=== PATIENT | female | born 1945 | race African-American/Black ===

== ENCOUNTER → 2016-07-01 | Outpatient (CLI) | payer OTHER ==
[~2016-07-01] MED LIST: ALLOPURINOL PO; ALLOPURINOL300 M1 ORAL; ASPIRIN81 MG ORAL; HYDROCHLOROTHIAZIDE PO; LOSARTAN PO; LOSARTAN POTASS50 MG ORAL; METFORMIN HCL500 M1 ORAL; TRAMADOL HCL PO
== END | disposition home or self-care (01) ==
LOC: MAMMO 09:10
DX: Z12.31 Encounter for screening mammogram for malignant neoplasm of breast (principal)
CPT/HCPCS: 77067

== ENCOUNTER 2017-03-12 16:49 | Inpatient (IN) | payer MEDICARE, OTHER ==
[~2017-03-12] VITALS: Ht 154.9 cm; Wt 81.6 kg
[2017-03-12 17:05] VITALS: BP 162/56
[2017-03-12] MEDS ORDERED: fentaNYL 100 mcg/2 mL IV ONE ×2 (17:30→21:15)
[2017-03-12 18:24] LABS: BASOPHILS % (AUTO) 0.6 % (0.0-2.0); EOSINOPHILS % (AUTO) 3.9 % (0.0-3.0); HEMATOCRIT 30.1 % (37.0-47.0); HEMOGLOBIN 9.7 G/DL (12.0-16.0); MEAN CORPUSCULAR VOLUME 83 FL (80-99); MONOCYTES % (AUTO) 6.7 % (1.0-10.0); NEUTROPHILS % (AUTO) 65.8 % (45.0-75.0); PLATELET COUNT 318 K/UL (150-450); RED BLOOD COUNT 3.64 M/UL (4.20-5.40); WHITE BLOOD COUNT 8.8 K/UL (4.8-10.8)
[2017-03-12 18:25] LABS: APPEARANCE,URINE CLEAR; BILIRUBIN, URINE NEGATIVE (NEGATIVE); COLOR,URINE PALE YELLOW; GLUCOSE, URINE (UA) NEGATIVE (NEGATIVE); KETONES,URINE NEGATIVE (NEGATIVE); LEUKOCYTE ESTERASE ,URINE 2+ (NEGATIVE); NITRITE,URINE NEGATIVE (NEGATIVE); PH,URINE 5 (4.5-8.0); PROTEIN,URINE 1+ (NEGATIVE); UROBILINOGEN,URINE NORMAL MG/DL (0.0-1.0)
[2017-03-12 18:35] LABS: ANION GAP 7 mmol/L (5-15); BLOOD UREA NITROGEN 24 mg/dL (7-18); CALCIUM 9.8 MG/DL (8.5-10.1); CARBON DIOXIDE 27 MMOL/L (21-32); CHLORIDE 105 MMOL/L (98-107); CREATININE 1.3 MG/DL (0.55-1.30); POTASSIUM 4.5 MMOL/L (3.5-5.1); SODIUM 139 MMOL/L (136-145)
[2017-03-12 18:46] LABS: ALANINE AMINOTRANSFERASE 24 U/L (12-78); ALBUMIN 3.3 G/DL (3.4-5.0); ALBUMIN/GLOBULIN RATIO 0.8 (1.0-2.7); ALKALINE PHOSPHATASE 73 U/L (46-116); ASPARTATE AMINO TRANSFERASE 22 U/L (15-37); BILIRUBIN,TOTAL 0.5 MG/DL (0.2-1.0); CREATINE KINASE 49 U/L (26-308)
[2017-03-12] MEDS ORDERED: Morphine Sulfate 4mg/ml Inj IVP PRN (19:30)
[2017-03-12] MEDS ORDERED: Mylanta II UD 30ml ORAL PRN (19:30)
[2017-03-12] MEDS ORDERED: Miralax 17gm pkt ORAL PRN (19:30)
[2017-03-12] MEDS ORDERED: Morphine Sulfate 2mg/ml Inj IVP PRN (19:30)
[2017-03-12] MEDS ORDERED: Zolpidem 5mg tab ORAL PRN (19:30)
[2017-03-12] MEDS ORDERED: LORazepam Inj 2mg/ml 1ml IV PRN (19:30)
[2017-03-12] MEDS ORDERED: SYMBICORT 16010.2 G1 IH (19:42)
[2017-03-12] MEDS ORDERED: JANUMET 50-1,01 EACH ORAL (19:42)
[2017-03-12] MEDS ORDERED: HYDROCHLOROTHIA25 MG ORAL (19:43)
[2017-03-12] MEDS: NovoLOG Insulin Flexpen SUBQ SCH (20:58)
[2017-03-12] MEDS ORDERED: Losartan 50mg tab ONE (21:11)
[2017-03-12] MEDS ORDERED: Allopurinol 100mg Tab ONE ×2 (21:11→21:15)
--- NOTE | 2017-03-12 21:18 | Emergency Room Report ---
History of Present Illness General Chief Complaint: Abdominal Pain Source: Patient Present Illness HPI Patient presents with 5-7 days of increasing leg edema and bilateral flank/ chest pain. She's had a non-productive cough. The bilateral flank pain has now localized on the R side - lower chest. Pleuritic and constant, aching and burning, /10. She tried meds at home without change. Denies fevers. No calf tenderness. The edema in her feet has progressed. On Feb 27 she had a second operation to remove a kidney stone. (The first was in January.) This was complicated by "giving me too much anesthesia". She was hospitalized at [facility] in ICU for at least 24 hours, intubated. She had a sore throat and pain with swallowing for several days after this. She just recently returned to work but feels weak and has CRUZ and dyspnea. She states when she presented for the surgery, there was some discussion about her slow heart rate. She considered gout, but not usual pain. She feels HCTZ had contributed to gout. No dysuria, headache. She is upset that she has had to miss work. Allergies: Coded Allergies: No Known Allergies (Unverified , 07/18/12) Patient History Past Medical History: see triage record Past Surgical History: hysterectomy, other - lithotripsy Social History: Reports: alcohol use - occ, Denies: smoking Social History Narrative working Last Menstrual Period: na Reviewed Nursing Documentation: PMH: Agreed, PSxH: Agreed Nursing Documentation-[facility] Past Medical History: No History, Except For Hx Cardiac Problems: Yes Hx Hypertension: Yes Hx Diabetes: Yes Hx Cancer: No Hx Gastrointestinal Problems: Yes - lithotripsy Hx Neurological Problems: No Review of Systems All Other Systems: negative except mentioned in HPI Physical Exam Vital Signs Date Time Temp Pulse Resp B/P (MAP) Pulse Ox O2 Delivery O2 Flow Rate FiO2 03/12/17 16:50 98.1 47 16 149/64 98 Room Air Sp02 EP Interpretation: reviewed, normal - O2 sat for me 94% on RA which is interpreted as low General Appearance: well appearing, no apparent distress, GCS 15 Head: normocephalic Eyes: bilateral eye normal inspection, bilateral eye PERRL ENT: moist mucus membranes Neck: supple Respiratory: decreased breath sounds, crackles, other - some R chest wall tenderness Cardiovascular #1: bradycardia, edema - bilaterrally Cardiovascular #2: 2+ radial (R) Gastrointestinal: normal inspection, normal bowel sounds, non tender, no mass, non-distended, overweight Genitourinary: CVA tenderness (R) Musculoskeletal: back normal, gait/station normal, normal range of motion, no calf tenderness Neurologic: alert, oriented x3, grossly normal Psychiatric: depressed affect Skin: normal inspection, warm/dry Medical Decision Making Diagnostic Impression: Primary Impression: Second degree heart block Additional Impressions: Congestive heart failure Qualified Codes: I50.41 - Acute combined systolic (congestive) and diastolic ( congestive) heart failure Pyuria Consideration of myxedema ER Course Patient presents with pleuritic chest pain, hypoxia, bradycardia, edema post operatively. DDx; PE, CHF, AMI, pleurisy, arrhythmia, hypothyroidism amongst others. Risk factors for PE significant. Will evaluate with EKG, CXR, CTA, labs. Treatment with analgesia. EKG with 2nd degree HB. Discussed with Dr. Argueta in detail. Consideration of atropine, but patient tolerating rhythm. Discussed with Dr. Ji. Plan to place pacer tomorrow. CXR with CHF and cardiomegaly. Labs with normal troponin, normal WBC, eosinophilia, anemia. Min renal insufficiency. BNP normal. CTA with no PE. Lasix given. Consideration of CHF with normal BNP for possible thyroid etiology. (On floor TSH ordered). Admit DAPHNE, Dr. Reddy. Laboratory Tests Test 03/12/17 17:35 White Blood Count 8.8 K/UL (4.8-10.8) Red Blood Count 3.64 M/UL (4.20-5.40) L Hemoglobin 9.7 G/DL (12.0-16.0) L Hematocrit 30.1 % (37.0-47.0) L Mean Corpuscular Volume 83 FL (80-99) Mean Corpuscular Hemoglobin 26.6 PG (27.0-31.0) L Mean Corpuscular Hemoglobin Concent 32.1 G/DL (32.0-36.0) Red Cell Distribution Width 13.0 % (11.6-14.8) Platelet Count 318 K/UL (150-450) Mean Platelet Volume 6.1 FL (6.5-10.1) L Neutrophils (%) (Auto) 65.8 % (45.0-75.0) Lymphocytes (%) (Auto) 23.0 % (20.0-45.0) Monocytes (%) (Auto) 6.7 % (1.0-10.0) Eosinophils (%) (Auto) 3.9 % (0.0-3.0) H Basophils (%) (Auto) 0.6 % (0.0-2.0) Prothrombin Time 10.5 SEC (9.30-11.50) Prothrombin Time INR 1.0 (0.9-1.1) PTT 29 SEC (23-33) Urine Color Pale yellow Urine Appearance Clear Urine pH 5 (4.5-8.0) Urine Specific [place] 1.010 (1.005-1.035) Urine Protein 1+ (NEGATIVE) H Urine Glucose (UA) Negative (NEGATIVE) Urine Ketones Negative (NEGATIVE) Urine Occult Blood 1+ (NEGATIVE) H Urine Nitrite Negative (NEGATIVE) Urine Bilirubin Negative (NEGATIVE) Urine Urobilinogen Normal MG/DL (0.0-1.0) Urine Leukocyte Esterase 2+ (NEGATIVE) H Urine RBC 2-4 /HPF (0 - 2) H Urine WBC 5-10 /HPF (0 - 2) H Urine Squamous Epithelial Cells Few /LPF (NONE/OCC) Urine Bacteria Few /HPF (NONE) Sodium Level 139 MMOL/L (136-145) Potassium Level 4.5 MMOL/L (3.5-5.1) Chloride Level 105 MMOL/L (98-107) Carbon Dioxide Level 27 MMOL/L (21-32) Anion Gap 7 mmol/L (5-15) Blood Urea Nitrogen 24 mg/dL (7-18) H Creatinine 1.3 MG/DL (0.55-1.30) Estimate Glomerular Filtration Rate mL/min (>60) Glucose Level 95 MG/DL (74-106) Calcium Level 9.8 MG/DL (8.5-10.1) Total Bilirubin 0.5 MG/DL (0.2-1.0) Aspartate Amino Transferase (AST) 22 U/L (15-37) Alanine Aminotransferase (ALT) 24 U/L (12-78) Alkaline Phosphatase 73 U/L (46-116) Total Creatine Kinase 49 U/L (26-308) Troponin I 0.000 ng/mL (0.000-0.056) Pro-B-Type Natriuretic Peptide 86 pg/mL (0-125) Total Protein 7.7 G/DL (6.4-8.2) Albumin 3.3 G/DL (3.4-5.0) L Globulin 4.4 g/dL Albumin/Globulin Ratio 0.8 (1.0-2.7) L EKG Diagnostic Results Rate: bradycardiac Rhythm: other - 2nd degree HB ST Segments: no acute changes Rhythm Strip Diag. Results EP Interpretation: yes Rhythm: no PVC's, no ectopy, other - 2nd degree - Mobitz 2 HB Chest X-Ray Diagnostic Results Chest X-Ray Diagnostic Results : Chest X-Ray Ordered: Yes # of Views/Limited/Complete: 1 View Indication: Chest Pain EP Interpretation: Yes Interpretation: no pneumothorax, other - cardiomegally, CHF CT/MRI/US Diagnostic Results CT/MRI/US Diagnostic Results : Imaging Test Ordered: CTA chest/abd Impression no PE, R renal subcapsular hematoma, cardiomegaly, atelectasis Last Vital Signs Date Time Temp Pulse Resp B/P (MAP) Pulse Ox O2 Delivery O2 Flow Rate FiO2 03/12/17 17:05 98.1 46 21 162/56 99 Room Air Status: improved Disposition: ADMITTED INPATIENT Condition: Serious Referrals: Alonso Reddy MD (PCP) Jasvir Baker M.D. Mar 12, 2017 21:18
[2017-03-12] MEDS: Heparin 5000 units/ml inj SUBQ SCH (21:26)
[2017-03-13] VITALS: BP 148/63
[2017-03-13 04:30] VITALS: BP 138/63
[2017-03-13] MEDS ORDERED: cefTRIAXone 1 GM in D5W 55 ML IVPB ONE (05:45)
[2017-03-13 06:07] LABS: BASOPHILS % (AUTO) 0.8 % (0.0-2.0); EOSINOPHILS % (AUTO) 4.5 % (0.0-3.0); HEMATOCRIT 29.7 % (37.0-47.0); HEMOGLOBIN 9.7 G/DL (12.0-16.0); LYMPHOCYTES % (AUTO) 25.4 % (20.0-45.0); MEAN CORPUSCULAR VOLUME 83 FL (80-99); NEUTROPHILS % (AUTO) 60.3 % (45.0-75.0); PLATELET COUNT 317 K/UL (150-450); RED BLOOD COUNT 3.58 M/UL (4.20-5.40); RED CELL DISTRIBUTION WIDTH 12.8 % (11.6-14.8); WHITE BLOOD COUNT 6.8 K/UL (4.8-10.8)
[2017-03-13] MEDS: NovoLOG Insulin Flexpen SUBQ SCH ×4 (06:30→21:00)
[2017-03-13 06:35] LABS: ALANINE AMINOTRANSFERASE 20 U/L (12-78); ALBUMIN/GLOBULIN RATIO 0.7 (1.0-2.7); ALKALINE PHOSPHATASE 70 U/L (46-116); ANION GAP 6 mmol/L (5-15); ASPARTATE AMINO TRANSFERASE 19 U/L (15-37); BILIRUBIN,TOTAL 0.4 MG/DL (0.2-1.0); BLOOD UREA NITROGEN 23 mg/dL (7-18); CALCIUM 9.6 MG/DL (8.5-10.1); CARBON DIOXIDE 32 MMOL/L (21-32); CHLORIDE 105 MMOL/L (98-107); CREATININE 1.4 MG/DL (0.55-1.30); SODIUM 143 MMOL/L (136-145)
--- NOTE | 2017-03-13 06:57 | Consultation ---
Consult Note Consult Note Cardiac EP # [id number] full note dictated TERRY BLUE Mar 13, 2017 06:57
[2017-03-13] MEDS ORDERED: ceFAZolin sod 1 GM in D5W 55 ML IV ONE (07:30)
[2017-03-13] MEDS: Sodium Chloride 500ML 550 ML IV SCH ×3 (07:45→22:01)
[2017-03-13 08:00] VITALS: BP 126/64
[2017-03-13] MEDS ORDERED: ceFAZolin sod 1 GM in NS 55 ML IV ONE (08:00)
--- NOTE | 2017-03-13 08:22 | Diagnostic Imaging Report ---
Indication: Chest pain Technique: CT pulmonary angiogram performed utilizing automated exposure control with intravenous contrast. Axial, sagittal and coronal reconstructions were obtained. 3-D volumetric reconstructions were also performed. CT dose: Total DLP 846.06 mGycm; CTDI vol 26.19 mGy Comparison: None Findings: There is adequate opacification of the pulmonary arteries. No pulmonary embolism identified. Main pulmonary artery within the upper limits for normal size. Thoracic aorta normal in caliber with atherosclerotic calcification. There is common origin of the brachiocephalic and left common carotid arteries, normal anatomic variant. No evidence to suggest aortic dissection. There is dependent atelectasis in the lung bases. There is no pleural effusion or pneumothorax. Heart is enlarged. There is no pericardial effusion. Coronary arterial calcifications are noted. There is no pathologically enlarged hilar or mediastinal adenopathy. Imaged thyroid is unremarkable. Right renal subcapsular hematoma is partially imaged. There is a small hiatal hernia. There is a 8 mm rounded structure in the caudate lobe which likely represents an area of calcification. IMPRESSION: No evidence of pulmonary embolism. No thoracic aortic aneurysm. Right renal subcapsular hematoma, partially imaged. Cardiomegaly and coronary arterial calcification. Small hiatal hernia. 8 mm high attenuation rounded structure in the caudate lobe of the liver likely representing calcification. Recommend noncontrast CT of the abdomen for confirmation. This corresponds with the statrad preliminary report, with minor discrepancy regarding finding in the liver. Findings of final report discussed with treating RN 03/13/17. The CT scanner at [facility] is accredited by the [employer] and the scans are performed using protocols designed to limit radiation exposure to as low as reasonably achievable to attain images of sufficient resolution adequate for diagnostic evaluation.
[2017-03-13] MEDS: Losartan 50mg tab ORAL SCH (09:00)
[2017-03-13] MEDS: Heparin 5000 units/ml inj SUBQ SCH ×2 (09:20→21:00)
--- NOTE | 2017-03-13 09:28 | Diagnostic Imaging Report ---
Indication: Pain Technique: XRAY Chest 1v Comparison: None Findings: Low lung volumes exaggerate heart size and vascular markings. Despite technique there is likely cardiomegaly. No definite focal airspace consolidation. No large pleural effusion. No pneumothorax. There are degenerative changes of the spine. No acute osseous abnormality seen. Impression: Limited exam with low lung volumes. Cardiomegaly. Question mild interstitial opacification/edema however this may be exaggerated due to low lung volumes.
--- NOTE | 2017-03-13 09:30 | Diagnostic Imaging Report ---
Indication: Dyspnea Technique: XRAY Chest 1v Comparison: 03/12/2017 Findings: Improved inspiratory effort. Heart size and mediastinal contours are stable, including cardiomegaly. There is mild central pulmonary vascular congestion. No evidence of alveolar edema. There is linear opacity in the left mid lung thought to represent subsegmental atelectasis. Otherwise, no focal airspace consolidation. No pleural effusion. No pneumothorax. No acute osseous abnormality. Impression: Cardiomegaly with mild central pulmonary vascular congestion. Linear opacity in the left midlung likely related to subsegmental atelectasis.
--- NOTE | 2017-03-13 12:16 | Anethesia Preoperative Eval ---
Anesthesia Pre-op PMH/ROS General Date of Evaluation: Mar 13, 2017 Time of Evaluation: 12:09 Anesthesiologist: Tito ASA Score: ASA 3 Mallampati Score Class I : Soft palate, uvula, fauces, pillars visible Class II: Soft palate, uvula, fauces visible Class III: Soft palate, base of uvula visible Class IV: Only hard plate visible Mallampati Classification: Class II Surgeon: Margy Diagnosis: Symptomatic bradycardia Surgical Procedure: Pacemaker placement Anesthesia History: difficult airway, other - slow to wake up post anesthesia Family History: no anesthesia problems Allergies: Coded Allergies: No Known Allergies (Unverified , 07/18/12) Medications: see eMAR Past Medical History Cardiovascular: Reports: HTN, CAD, arrhythmia - Type2 second degree heart block , other - CHF Pulmonary: Denies: asthma, COPD, MICHELLE, other Gastrointestinal/Genitourinary: Reports: GERD, CRI, other - bilateral kidney stones h/o recent lithotrypsy, Denies: ESRD Neurologic/Psychiatric: Reports: depression/anxiety, Denies: dementia, CVA, TIA, other Endocrine: Denies: DM, hypothyroidism, steroids, other HEENT: Denies: cataract (L), cataract (R), glaucoma, [place] (L), [place] (R), other Hematology/Immune: Reports: anemia - mild, Denies: DVT, bleeding disorder, other Musculoskeletal/Integumentary: Reports: OA, Denies: RA, DJD, DDD, edema, other Other: obesity PMH Narrative: admitted for weakness SOB and some chest pains PSxH Narrative: Hysterectomy, kidney stones Anesthesia Pre-op Phys. Exam Physician Exam Last Vital Signs Date Time Temp Pulse Resp B/P (MAP) Pulse Ox O2 Delivery O2 Flow Rate FiO2 03/13/17 09:00 126/64 03/13/17 08:00 42 03/13/17 08:00 97.9 20 96 Room Air Constitutional: NAD Neurologic: CN 2-12 intact Cardiovascular: RRR, no M/R/G Respiratory: CTA Gastrointestinal: other - obesity Airway Exam Mallampati Score: Class III MO: limited Neck: short ROM: limited Teeth: missing Dentures: no upper, no lower Anesthesia Pre-op A/P Labs Hematology Test 03/12/17 17:35 03/13/17 04:40 White Blood Count 8.8 K/UL (4.8-10.8) 6.8 K/UL (4.8-10.8) Red Blood Count 3.64 M/UL (4.20-5.40) L 3.58 M/UL (4.20-5.40) L Hemoglobin 9.7 G/DL (12.0-16.0) L 9.7 G/DL (12.0-16.0) L Hematocrit 30.1 % (37.0-47.0) L 29.7 % (37.0-47.0) L Mean Corpuscular Volume 83 FL (80-99) 83 FL (80-99) Mean Corpuscular Hemoglobin 26.6 PG (27.0-31.0) L 27.1 PG (27.0-31.0) Mean Corpuscular Hemoglobin Concent 32.1 G/DL (32.0-36.0) 32.7 G/DL (32.0-36.0) Red Cell Distribution Width 13.0 % (11.6-14.8) 12.8 % (11.6-14.8) Platelet Count 318 K/UL (150-450) 317 K/UL (150-450) Mean Platelet Volume 6.1 FL (6.5-10.1) L 6.5 FL (6.5-10.1) Neutrophils (%) (Auto) 65.8 % (45.0-75.0) 60.3 % (45.0-75.0) Lymphocytes (%) (Auto) 23.0 % (20.0-45.0) 25.4 % (20.0-45.0) Monocytes (%) (Auto) 6.7 % (1.0-10.0) 9.0 % (1.0-10.0) Eosinophils (%) (Auto) 3.9 % (0.0-3.0) H 4.5 % (0.0-3.0) H Basophils (%) (Auto) 0.6 % (0.0-2.0) 0.8 % (0.0-2.0) Coagulation Test 03/12/17 17:35 Prothrombin Time 10.5 SEC (9.30-11.50) Prothromb Time International Ratio 1.0 (0.9-1.1) Activated Partial Thromboplast Time 29 SEC (23-33) Chemistry Test 03/12/17 17:35 03/13/17 04:40 Sodium Level 139 MMOL/L (136-145) 143 MMOL/L (136-145) Potassium Level 4.5 MMOL/L (3.5-5.1) 4.0 MMOL/L (3.5-5.1) Chloride Level 105 MMOL/L (98-107) 105 MMOL/L (98-107) Carbon Dioxide Level 27 MMOL/L (21-32) 32 MMOL/L (21-32) Anion Gap 7 mmol/L (5-15) 6 mmol/L (5-15) Blood Urea Nitrogen 24 mg/dL (7-18) H 23 mg/dL (7-18) H Creatinine 1.3 MG/DL (0.55-1.30) 1.4 MG/DL (0.55-1.30) H Estimat Glomerular Filtration Rate mL/min (>60) mL/min (>60) Glucose Level 95 MG/DL (74-106) 115 MG/DL (74-106) H Calcium Level 9.8 MG/DL (8.5-10.1) 9.6 MG/DL (8.5-10.1) Total Bilirubin 0.5 MG/DL (0.2-1.0) 0.4 MG/DL (0.2-1.0) Aspartate Amino Transf (AST/SGOT) 22 U/L (15-37) 19 U/L (15-37) Alanine Aminotransferase (ALT/SGPT) 24 U/L (12-78) 20 U/L (12-78) Alkaline Phosphatase 73 U/L (46-116) 70 U/L (46-116) Total Creatine Kinase 49 U/L (26-308) Troponin I 0.000 ng/mL (0.000-0.056) Pro-B-Type Natriuretic Peptide 86 pg/mL (0-125) Total Protein 7.7 G/DL (6.4-8.2) 7.4 G/DL (6.4-8.2) Albumin 3.3 G/DL (3.4-5.0) L 3.0 G/DL (3.4-5.0) L Globulin 4.4 g/dL 4.4 g/dL Albumin/Globulin Ratio 0.8 (1.0-2.7) L 0.7 (1.0-2.7) L Thyroid Stimulating Hormone (TSH) 1.827 uiU/mL (0.358-3.740) Risk Assessment & Plan Assessment: ASA 3 Plan: MAC Pre-Antibiotics Drug: as scheduled JOSE ROBLES M.D. Mar 13, 2017 12:15
--- NOTE | 2017-03-13 12:27 | Consultation ---
History of Present Illness General Date patient seen: Mar 13, 2017 Chief Complaint: Abdominal Pain Present Illness HPI 72 year old female with hx of DM, HTN, presented with 5-7 days of increasing leg edema and bilateral flank/chest pain. She had Pleuritic and constant, aching and burning, 08/19. she has CRUZ and dyspnea. she had symptomatic bradycardi in ER. She had CT agnio to rule out aortic aneurysm. Cardio was contacted Allergies: Coded Allergies: No Known Allergies (Unverified , 07/18/12) Medication History Scheduled Allopurinol* (Allopurinol*), 300 MG ORAL DAILY, (Reported) Budesonide/Formoterol Fumarate (Symbicort 160-4.5 Mcg Inhaler), 2 PUFF IH BID, ( Reported) Hydrochlorothiazide* (Hydrochlorothiazide*), 25 MG ORAL DAILY, (Reported) Losartan Potassium* (Losartan Potassium*), 50 MG ORAL DAILY, (Reported) Sitagliptin Phos/Metformin Hcl (Janumet 50-1,000 Mg Tablet), 1 TAB ORAL TWICE A DAY, (Reported) Discontinued Medications Aspirin* (Aspirin*), 81 MG ORAL DAILY, (Reported) Discontinued Reason: Pt stopped taking med Metformin Hcl* (Metformin Hcl*), 500 MG ORAL TWICE A DAY, (Reported) Discontinued Reason: Pt stopped taking med Patient History Healthcare decision maker Resuscitation status Full Code Advanced Directive on File No Past Medical/Surgical History Past Medical/Surgical History: (1) Congestive heart failure Review of Systems Constitutional: Reports: weakness Physical Exam General Appearance: WD/WN Lines, tubes and drains: peripheral HEENT: normocephalic, atraumatic Neck: non-tender, normal alignment Respiratory/Chest: chest wall non-tender, lungs clear Cardiovascular/Chest: normal peripheral pulses, normal rate Abdomen: normal bowel sounds, soft Genitourinary/Rectal: normal genital exam Last 24 Hour Vital Signs Date Time Temp Pulse Resp B/P (MAP) Pulse Ox O2 Delivery O2 Flow Rate FiO2 03/13/17 09:00 126/64 03/13/17 08:00 42 03/13/17 08:00 97.9 41 20 126/64 96 Room Air 03/13/17 05:06 98.0 03/13/17 04:30 98.6 44 19 138/63 95 Room Air 03/13/17 04:00 44 03/13/17 00:00 46 03/13/17 00:00 98.0 44 20 148/63 95 Room Air 03/12/17 23:18 98.1 46 21 138/50 99 Room Air 03/12/17 17:05 98.1 46 21 162/56 99 Room Air 03/12/17 16:50 98.1 47 16 149/64 98 Room Air Intake and Output 03/12/17 03/13/17 19:00 07:00 Intake Total 300 ml Output Total 2000 ml Balance -1700 ml Intake Oral 300 ml Output Urine Total 2000 ml Laboratory Tests Test 03/12/17 17:35 03/13/17 04:40 White Blood Count 8.8 K/UL (4.8-10.8) 6.8 K/UL (4.8-10.8) Red Blood Count 3.64 M/UL (4.20-5.40) L 3.58 M/UL (4.20-5.40) L Hemoglobin 9.7 G/DL (12.0-16.0) L 9.7 G/DL (12.0-16.0) L Hematocrit 30.1 % (37.0-47.0) L 29.7 % (37.0-47.0) L Mean Corpuscular Volume 83 FL (80-99) 83 FL (80-99) Mean Corpuscular Hemoglobin 26.6 PG (27.0-31.0) L 27.1 PG (27.0-31.0) Mean Corpuscular Hemoglobin Concent 32.1 G/DL (32.0-36.0) 32.7 G/DL (32.0-36.0) Red Cell Distribution Width 13.0 % (11.6-14.8) 12.8 % (11.6-14.8) Platelet Count 318 K/UL (150-450) 317 K/UL (150-450) Mean Platelet Volume 6.1 FL (6.5-10.1) L 6.5 FL (6.5-10.1) Neutrophils (%) (Auto) 65.8 % (45.0-75.0) 60.3 % (45.0-75.0) Lymphocytes (%) (Auto) 23.0 % (20.0-45.0) 25.4 % (20.0-45.0) Monocytes (%) (Auto) 6.7 % (1.0-10.0) 9.0 % (1.0-10.0) Eosinophils (%) (Auto) 3.9 % (0.0-3.0) H 4.5 % (0.0-3.0) H Basophils (%) (Auto) 0.6 % (0.0-2.0) 0.8 % (0.0-2.0) Prothrombin Time 10.5 SEC (9.30-11.50) Prothromb Time International Ratio 1.0 (0.9-1.1) Activated Partial Thromboplast Time 29 SEC (23-33) Urine Color Pale yellow Urine Appearance Clear Urine pH 5 (4.5-8.0) Urine Specific [place] 1.010 (1.005-1.035) Urine Protein 1+ (NEGATIVE) H Urine Glucose (UA) Negative (NEGATIVE) Urine Ketones Negative (NEGATIVE) Urine Occult Blood 1+ (NEGATIVE) H Urine Nitrite Negative (NEGATIVE) Urine Bilirubin Negative (NEGATIVE) Urine Urobilinogen Normal MG/DL (0.0-1.0) Urine Leukocyte Esterase 2+ (NEGATIVE) H Urine RBC 2-4 /HPF (0 - 2) H Urine WBC 5-10 /HPF (0 - 2) H Urine Squamous Epithelial Cells Few /LPF (NONE/OCC) Urine Bacteria Few /HPF (NONE) Sodium Level 139 MMOL/L (136-145) 143 MMOL/L (136-145) Potassium Level 4.5 MMOL/L (3.5-5.1) 4.0 MMOL/L (3.5-5.1) Chloride Level 105 MMOL/L (98-107) 105 MMOL/L (98-107) Carbon Dioxide Level 27 MMOL/L (21-32) 32 MMOL/L (21-32) Anion Gap 7 mmol/L (5-15) 6 mmol/L (5-15) Blood Urea Nitrogen 24 mg/dL (7-18) H 23 mg/dL (7-18) H Creatinine 1.3 MG/DL (0.55-1.30) 1.4 MG/DL (0.55-1.30) H Estimat Glomerular Filtration Rate mL/min (>60) mL/min (>60) Glucose Level 95 MG/DL (74-106) 115 MG/DL (74-106) H Calcium Level 9.8 MG/DL (8.5-10.1) 9.6 MG/DL (8.5-10.1) Total Bilirubin 0.5 MG/DL (0.2-1.0) 0.4 MG/DL (0.2-1.0) Aspartate Amino Transf (AST/SGOT) 22 U/L (15-37) 19 U/L (15-37) Alanine Aminotransferase (ALT/SGPT) 24 U/L (12-78) 20 U/L (12-78) Alkaline Phosphatase 73 U/L (46-116) 70 U/L (46-116) Total Creatine Kinase 49 U/L (26-308) Troponin I 0.000 ng/mL (0.000-0.056) Pro-B-Type Natriuretic Peptide 86 pg/mL (0-125) Total Protein 7.7 G/DL (6.4-8.2) 7.4 G/DL (6.4-8.2) Albumin 3.3 G/DL (3.4-5.0) L 3.0 G/DL (3.4-5.0) L Globulin 4.4 g/dL 4.4 g/dL Albumin/Globulin Ratio 0.8 (1.0-2.7) L 0.7 (1.0-2.7) L Thyroid Stimulating Hormone (TSH) 1.827 uiU/mL (0.358-3.740) Height (Feet): 5 Height (Inches): 1.00 Weight (Pounds): 180 Medications Current Medications Medications (Trade) Dose Ordered Sig/Harsh Route PRN Reason Start Time Stop Time Status Last Admin Dose Admin Acetaminophen (Tylenol) 650 mg Q4H PRN ORAL fever 03/12/17 19:30 04/11/17 19:29 Al Hydroxide/Mg Hydroxide (Mylanta II) 30 ml Q6H PRN ORAL dyspepsia 03/12/17 19:30 04/11/17 19:29 Allopurinol (Allopurinol) 300 mg DAILY ORAL 03/13/17 09:00 04/12/17 08:59 03/13/17 09:18 Cefazolin Sodium 2 gm/Sodium Chloride 110 ml @ 220 mls/hr ONCE IVP 03/14/17 06:00 03/21/17 05:59 Dextrose (Dextrose 50%) STAT PRN IV Hypoglycemia 03/12/17 19:30 04/11/17 19:29 Heparin Sodium (Porcine) (Heparin 5000 units/ml) 5,000 units EVERY 12 HOURS SUBQ 03/12/17 21:15 04/11/17 21:14 03/13/17 09:20 Insulin Aspart (NovoLOG) BEFORE MEALS AND HS SUBQ 03/12/17 21:15 04/11/17 21:14 Lorazepam (Ativan 2mg/ml 1ml) 0.5 mg Q4H PRN IV For Anxiety 03/12/17 19:30 03/19/17 19:29 Losartan Potassium (Cozaar) 50 mg DAILY ORAL 03/13/17 09:00 04/12/17 08:59 Morphine Sulfate (Morphine Sulfate) 2 mg Q4H PRN IVP For Pain 4-6 03/12/17 19:30 03/19/17 19:29 03/13/17 04:36 Morphine Sulfate (Morphine Sulfate) 4 mg Q4H PRN IVP For Pain 7-10 03/12/17 19:30 03/19/17 19:29 Ondansetron HCl (Zofran) 4 mg Q6H PRN IVP Nausea & Vomiting 03/12/17 19:30 04/11/17 19:29 Polyethylene Glycol (Miralax) 17 gm HSPRN PRN ORAL Constipation 03/12/17 19:30 04/11/17 19:29 Sodium Chloride 550 ml @ 75 mls/hr [id number] IV 03/13/17 06:45 04/12/17 06:44 03/13/17 07:45 Sodium Chloride 1,000 ml @ 70 mls/hr [id number] IV 03/14/17 06:00 04/13/17 05:59 Zolpidem Tartrate (Ambien) 5 mg HSPRN PRN ORAL Insomnia 03/12/17 19:30 03/19/17 19:29 Assessment/Plan Problem List: (1) Second degree heart block ICD Codes: I44.1 - Atrioventricular block, second degree SNOMED: 100788922 (2) Congestive heart failure ICD Codes: I50.9 - Heart failure, unspecified SNOMED: 94997287 Qualifiers: Qualified Codes: I50.41 - Acute combined systolic (congestive) and diastolic (congestive) heart failure (3) Chest pain with moderate risk of acute coronary syndrome ICD Codes: R07.9 - Chest pain with moderate risk of acute coronary syndrome SNOMED: 93891160 Assessment/Plan serial ekg tropion cardiology to evaluate for pace maker echo titrate cardiac meds. dvt porphylaxis symptomatic treatment. WILLIS CHATTERJEE Mar 13, 2017 12:27
--- NOTE | 2017-03-13 14:59 | Consultation ---
History of Present Illness General Date patient seen: Mar 13, 2017 Present Illness Allergies: Coded Allergies: No Known Allergies (Unverified , 07/18/12) Medication History Scheduled Allopurinol* (Allopurinol*), 300 MG ORAL DAILY, (Reported) Budesonide/Formoterol Fumarate (Symbicort 160-4.5 Mcg Inhaler), 2 PUFF IH BID, ( Reported) Hydrochlorothiazide* (Hydrochlorothiazide*), 25 MG ORAL DAILY, (Reported) Losartan Potassium* (Losartan Potassium*), 50 MG ORAL DAILY, (Reported) Sitagliptin Phos/Metformin Hcl (Janumet 50-1,000 Mg Tablet), 1 TAB ORAL TWICE A DAY, (Reported) Discontinued Medications Aspirin* (Aspirin*), 81 MG ORAL DAILY, (Reported) Discontinued Reason: Pt stopped taking med Metformin Hcl* (Metformin Hcl*), 500 MG ORAL TWICE A DAY, (Reported) Discontinued Reason: Pt stopped taking med Patient History Healthcare decision maker Resuscitation status Full Code Advanced Directive on File No Physical Exam Last 24 Hour Vital Signs Date Time Temp Pulse Resp B/P (MAP) Pulse Ox O2 Delivery O2 Flow Rate FiO2 03/13/17 09:00 126/64 03/13/17 08:00 42 03/13/17 08:00 97.9 41 20 126/64 96 Room Air 03/13/17 05:06 98.0 03/13/17 04:30 98.6 44 19 138/63 95 Room Air 03/13/17 04:00 44 03/13/17 00:00 46 03/13/17 00:00 98.0 44 20 148/63 95 Room Air 03/12/17 23:18 98.1 46 21 138/50 99 Room Air 03/12/17 17:05 98.1 46 21 162/56 99 Room Air 03/12/17 16:50 98.1 47 16 149/64 98 Room Air Intake and Output 03/12/17 03/13/17 19:00 07:00 Intake Total 300 ml Output Total 2000 ml Balance -1700 ml Intake Oral 300 ml Output Urine Total 2000 ml Laboratory Tests Test 03/12/17 17:35 03/13/17 04:40 White Blood Count 8.8 K/UL (4.8-10.8) 6.8 K/UL (4.8-10.8) Red Blood Count 3.64 M/UL (4.20-5.40) L 3.58 M/UL (4.20-5.40) L Hemoglobin 9.7 G/DL (12.0-16.0) L 9.7 G/DL (12.0-16.0) L Hematocrit 30.1 % (37.0-47.0) L 29.7 % (37.0-47.0) L Mean Corpuscular Volume 83 FL (80-99) 83 FL (80-99) Mean Corpuscular Hemoglobin 26.6 PG (27.0-31.0) L 27.1 PG (27.0-31.0) Mean Corpuscular Hemoglobin Concent 32.1 G/DL (32.0-36.0) 32.7 G/DL (32.0-36.0) Red Cell Distribution Width 13.0 % (11.6-14.8) 12.8 % (11.6-14.8) Platelet Count 318 K/UL (150-450) 317 K/UL (150-450) Mean Platelet Volume 6.1 FL (6.5-10.1) L 6.5 FL (6.5-10.1) Neutrophils (%) (Auto) 65.8 % (45.0-75.0) 60.3 % (45.0-75.0) Lymphocytes (%) (Auto) 23.0 % (20.0-45.0) 25.4 % (20.0-45.0) Monocytes (%) (Auto) 6.7 % (1.0-10.0) 9.0 % (1.0-10.0) Eosinophils (%) (Auto) 3.9 % (0.0-3.0) H 4.5 % (0.0-3.0) H Basophils (%) (Auto) 0.6 % (0.0-2.0) 0.8 % (0.0-2.0) Prothrombin Time 10.5 SEC (9.30-11.50) Prothromb Time International Ratio 1.0 (0.9-1.1) Activated Partial Thromboplast Time 29 SEC (23-33) Urine Color Pale yellow Urine Appearance Clear Urine pH 5 (4.5-8.0) Urine Specific [place] 1.010 (1.005-1.035) Urine Protein 1+ (NEGATIVE) H Urine Glucose (UA) Negative (NEGATIVE) Urine Ketones Negative (NEGATIVE) Urine Occult Blood 1+ (NEGATIVE) H Urine Nitrite Negative (NEGATIVE) Urine Bilirubin Negative (NEGATIVE) Urine Urobilinogen Normal MG/DL (0.0-1.0) Urine Leukocyte Esterase 2+ (NEGATIVE) H Urine RBC 2-4 /HPF (0 - 2) H Urine WBC 5-10 /HPF (0 - 2) H Urine Squamous Epithelial Cells Few /LPF (NONE/OCC) Urine Bacteria Few /HPF (NONE) Sodium Level 139 MMOL/L (136-145) 143 MMOL/L (136-145) Potassium Level 4.5 MMOL/L (3.5-5.1) 4.0 MMOL/L (3.5-5.1) Chloride Level 105 MMOL/L (98-107) 105 MMOL/L (98-107) Carbon Dioxide Level 27 MMOL/L (21-32) 32 MMOL/L (21-32) Anion Gap 7 mmol/L (5-15) 6 mmol/L (5-15) Blood Urea Nitrogen 24 mg/dL (7-18) H 23 mg/dL (7-18) H Creatinine 1.3 MG/DL (0.55-1.30) 1.4 MG/DL (0.55-1.30) H Estimat Glomerular Filtration Rate mL/min (>60) mL/min (>60) Glucose Level 95 MG/DL (74-106) 115 MG/DL (74-106) H Calcium Level 9.8 MG/DL (8.5-10.1) 9.6 MG/DL (8.5-10.1) Total Bilirubin 0.5 MG/DL (0.2-1.0) 0.4 MG/DL (0.2-1.0) Aspartate Amino Transf (AST/SGOT) 22 U/L (15-37) 19 U/L (15-37) Alanine Aminotransferase (ALT/SGPT) 24 U/L (12-78) 20 U/L (12-78) Alkaline Phosphatase 73 U/L (46-116) 70 U/L (46-116) Total Creatine Kinase 49 U/L (26-308) Troponin I 0.000 ng/mL (0.000-0.056) Pro-B-Type Natriuretic Peptide 86 pg/mL (0-125) Total Protein 7.7 G/DL (6.4-8.2) 7.4 G/DL (6.4-8.2) Albumin 3.3 G/DL (3.4-5.0) L 3.0 G/DL (3.4-5.0) L Globulin 4.4 g/dL 4.4 g/dL Albumin/Globulin Ratio 0.8 (1.0-2.7) L 0.7 (1.0-2.7) L Thyroid Stimulating Hormone (TSH) 1.827 uiU/mL (0.358-3.740) Height (Feet): 5 Height (Inches): 1.00 Weight (Pounds): 180 Medications Current Medications Medications (Trade) Dose Ordered Sig/Harsh Route PRN Reason Start Time Stop Time Status Last Admin Dose Admin Acetaminophen (Tylenol) 650 mg Q4H PRN ORAL fever 03/12/17 19:30 04/11/17 19:29 Al Hydroxide/Mg Hydroxide (Mylanta II) 30 ml Q6H PRN ORAL dyspepsia 03/12/17 19:30 04/11/17 19:29 Allopurinol (Allopurinol) 300 mg DAILY ORAL 03/13/17 09:00 04/12/17 08:59 03/13/17 09:18 Cefazolin Sodium 2 gm/Sodium Chloride 110 ml @ 220 mls/hr ONCE IVP 03/14/17 06:00 03/21/17 05:59 Dextrose (Dextrose 50%) STAT PRN IV Hypoglycemia 03/12/17 19:30 04/11/17 19:29 Heparin Sodium (Porcine) (Heparin 5000 units/ml) 5,000 units EVERY 12 HOURS SUBQ 03/12/17 21:15 04/11/17 21:14 03/13/17 09:20 Insulin Aspart (NovoLOG) BEFORE MEALS AND HS SUBQ 03/12/17 21:15 04/11/17 21:14 03/13/17 12:39 Lorazepam (Ativan 2mg/ml 1ml) 0.5 mg Q4H PRN IV For Anxiety 03/12/17 19:30 03/19/17 19:29 Losartan Potassium (Cozaar) 50 mg DAILY ORAL 03/13/17 09:00 04/12/17 08:59 Morphine Sulfate (Morphine Sulfate) 2 mg Q4H PRN IVP For Pain 4-6 03/12/17 19:30 03/19/17 19:29 03/13/17 04:36 Morphine Sulfate (Morphine Sulfate) 4 mg Q4H PRN IVP For Pain 7-10 03/12/17 19:30 03/19/17 19:29 Ondansetron HCl (Zofran) 4 mg Q6H PRN IVP Nausea & Vomiting 03/12/17 19:30 04/11/17 19:29 Polyethylene Glycol (Miralax) 17 gm HSPRN PRN ORAL Constipation 03/12/17 19:30 04/11/17 19:29 Sodium Chloride 550 ml @ 75 mls/hr Q7H20M IV 03/13/17 06:45 04/12/17 06:44 03/13/17 07:45 Sodium Chloride 1,000 ml @ 70 mls/hr [id number] IV 03/14/17 06:00 04/13/17 05:59 Zolpidem Tartrate (Ambien) 5 mg HSPRN PRN ORAL Insomnia 03/12/17 19:30 03/19/17 19:29 Assessment/Plan Assessment/Plan (1) Left knee pain (2) Left knee OA (3) Gout (4) Chest pain (5) Second degree heart block (6) Congestive heart failure seen dictated WILLIAMS SANCHEZ Mar 13, 2017 14:59
[2017-03-13 16:00] VITALS: BP 141/60
--- NOTE | 2017-03-13 17:07 | Cardiology Progress Note ---
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 persistent avb, rbbb, lafb pacer planned for am pt has had fu appoitninitiated to see me next week lexis bassam johnson from my last visit at [facility] with her earlier past month Objective Last 24 Hour Vital Signs Date Time Temp Pulse Resp B/P (MAP) Pulse Ox O2 Delivery O2 Flow Rate FiO2 03/13/17 09:00 126/64 03/13/17 08:00 42 03/13/17 08:00 97.9 41 20 126/64 96 Room Air 03/13/17 05:06 98.0 03/13/17 04:30 98.6 44 19 138/63 95 Room Air 03/13/17 04:00 44 03/13/17 00:00 46 03/13/17 00:00 98.0 44 20 148/63 95 Room Air 03/12/17 23:18 98.1 46 21 138/50 99 Room Air Intake and Output 03/12/17 03/13/17 19:00 07:00 Intake Total 300 ml Output Total 2000 ml Balance -1700 ml Intake Oral 300 ml Output Urine Total 2000 ml Laboratory Tests Test 03/12/17 17:35 03/13/17 04:40 White Blood Count 8.8 K/UL (4.8-10.8) 6.8 K/UL (4.8-10.8) Red Blood Count 3.64 M/UL (4.20-5.40) L 3.58 M/UL (4.20-5.40) L Hemoglobin 9.7 G/DL (12.0-16.0) L 9.7 G/DL (12.0-16.0) L Hematocrit 30.1 % (37.0-47.0) L 29.7 % (37.0-47.0) L Mean Corpuscular Volume 83 FL (80-99) 83 FL (80-99) Mean Corpuscular Hemoglobin 26.6 PG (27.0-31.0) L 27.1 PG (27.0-31.0) Mean Corpuscular Hemoglobin Concent 32.1 G/DL (32.0-36.0) 32.7 G/DL (32.0-36.0) Red Cell Distribution Width 13.0 % (11.6-14.8) 12.8 % (11.6-14.8) Platelet Count 318 K/UL (150-450) 317 K/UL (150-450) Mean Platelet Volume 6.1 FL (6.5-10.1) L 6.5 FL (6.5-10.1) Neutrophils (%) (Auto) 65.8 % (45.0-75.0) 60.3 % (45.0-75.0) Lymphocytes (%) (Auto) 23.0 % (20.0-45.0) 25.4 % (20.0-45.0) Monocytes (%) (Auto) 6.7 % (1.0-10.0) 9.0 % (1.0-10.0) Eosinophils (%) (Auto) 3.9 % (0.0-3.0) H 4.5 % (0.0-3.0) H Basophils (%) (Auto) 0.6 % (0.0-2.0) 0.8 % (0.0-2.0) Prothrombin Time 10.5 SEC (9.30-11.50) Prothromb Time International Ratio 1.0 (0.9-1.1) Activated Partial Thromboplast Time 29 SEC (23-33) Urine Color Pale yellow Urine Appearance Clear Urine pH 5 (4.5-8.0) Urine Specific [place] 1.010 (1.005-1.035) Urine Protein 1+ (NEGATIVE) H Urine Glucose (UA) Negative (NEGATIVE) Urine Ketones Negative (NEGATIVE) Urine Occult Blood 1+ (NEGATIVE) H Urine Nitrite Negative (NEGATIVE) Urine Bilirubin Negative (NEGATIVE) Urine Urobilinogen Normal MG/DL (0.0-1.0) Urine Leukocyte Esterase 2+ (NEGATIVE) H Urine RBC 2-4 /HPF (0 - 2) H Urine WBC 5-10 /HPF (0 - 2) H Urine Squamous Epithelial Cells Few /LPF (NONE/OCC) Urine Bacteria Few /HPF (NONE) Sodium Level 139 MMOL/L (136-145) 143 MMOL/L (136-145) Potassium Level 4.5 MMOL/L (3.5-5.1) 4.0 MMOL/L (3.5-5.1) Chloride Level 105 MMOL/L (98-107) 105 MMOL/L (98-107) Carbon Dioxide Level 27 MMOL/L (21-32) 32 MMOL/L (21-32) Anion Gap 7 mmol/L (5-15) 6 mmol/L (5-15) Blood Urea Nitrogen 24 mg/dL (7-18) H 23 mg/dL (7-18) H Creatinine 1.3 MG/DL (0.55-1.30) 1.4 MG/DL (0.55-1.30) H Estimat Glomerular Filtration Rate mL/min (>60) mL/min (>60) Glucose Level 95 MG/DL (74-106) 115 MG/DL (74-106) H Calcium Level 9.8 MG/DL (8.5-10.1) 9.6 MG/DL (8.5-10.1) Total Bilirubin 0.5 MG/DL (0.2-1.0) 0.4 MG/DL (0.2-1.0) Aspartate Amino Transf (AST/SGOT) 22 U/L (15-37) 19 U/L (15-37) Alanine Aminotransferase (ALT/SGPT) 24 U/L (12-78) 20 U/L (12-78) Alkaline Phosphatase 73 U/L (46-116) 70 U/L (46-116) Total Creatine Kinase 49 U/L (26-308) Troponin I 0.000 ng/mL (0.000-0.056) Pro-B-Type Natriuretic Peptide 86 pg/mL (0-125) Total Protein 7.7 G/DL (6.4-8.2) 7.4 G/DL (6.4-8.2) Albumin 3.3 G/DL (3.4-5.0) L 3.0 G/DL (3.4-5.0) L Globulin 4.4 g/dL 4.4 g/dL Albumin/Globulin Ratio 0.8 (1.0-2.7) L 0.7 (1.0-2.7) L Thyroid Stimulating Hormone (TSH) 1.827 uiU/mL (0.358-3.740) ANUEL HENNESSY Mar 13, 2017 17:06
[2017-03-13] MEDS ORDERED: ceFAZolin sod 2 GM in NS 110 ML IVP SCH (18:00)
[2017-03-13 20:00] VITALS: BP 141/53
[2017-03-14] VITALS (14 sets, daily range): BP systolic 138–159; BP diastolic 62–84
[2017-03-14] MEDS: Sodium Chloride 500ML 550 ML IV SCH ×2 (05:01→11:55)
[2017-03-14] MEDS ORDERED: ceFAZolin sod 2 GM in NS 110 ML IVP SCH (06:00)
[2017-03-14] MEDS ORDERED: ceFAZolin 2gm/50ml Premix 50 ML IV SCH (06:00)
[2017-03-14 06:09] LABS: BASOPHILS % (AUTO) 0.8 % (0.0-2.0); HEMOGLOBIN 9.2 G/DL (12.0-16.0); LYMPHOCYTES % (AUTO) 25.6 % (20.0-45.0); MEAN CORPUSCULAR VOLUME 83 FL (80-99); MONOCYTES % (AUTO) 7.2 % (1.0-10.0); NEUTROPHILS % (AUTO) 61.5 % (45.0-75.0); PLATELET COUNT 280 K/UL (150-450); RED BLOOD COUNT 3.36 M/UL (4.20-5.40); RED CELL DISTRIBUTION WIDTH 13.2 % (11.6-14.8); WHITE BLOOD COUNT 7.5 K/UL (4.8-10.8)
[2017-03-14 06:20] LABS: ANION GAP 9 mmol/L (5-15); BLOOD UREA NITROGEN 22 mg/dL (7-18); CALCIUM 8.8 MG/DL (8.5-10.1); CARBON DIOXIDE 27 MMOL/L (21-32); CHLORIDE 106 MMOL/L (98-107); CREATININE 1.4 MG/DL (0.55-1.30); POTASSIUM 4.1 MMOL/L (3.5-5.1); SODIUM 141 MMOL/L (136-145)
[2017-03-14] MEDS: NovoLOG Insulin Flexpen SUBQ SCH ×4 (06:30→22:13)
--- NOTE | 2017-03-14 06:38 | General Progress Note ---
Assessment/Plan Problem List: (1) Diabetes mellitus ICD Codes: E11.9 - Type 2 diabetes mellitus without complications SNOMED: 40934177 (2) Second degree heart block ICD Codes: I44.1 - Atrioventricular block, second degree SNOMED: 761407766 (3) Congestive heart failure ICD Codes: I50.9 - Heart failure, unspecified SNOMED: 91758343 Qualifiers: Qualified Codes: I50.41 - Acute combined systolic (congestive) and diastolic (congestive) heart failure Assessment/Plan DM is managed as OP with Janumet mg bid I recommend to reduce dosage to 50/500 bid due to elevated Cr of 1.4 continue NISS during stay - no need for insulin after discharge Subjective Allergies: Coded Allergies: No Known Allergies (Unverified , 07/18/12) All Systems: reviewed and negative except above Subjective events noted NPO for PPM today Objective Last 24 Hour Vital Signs Date Time Temp Pulse Resp B/P (MAP) Pulse Ox O2 Delivery O2 Flow Rate FiO2 03/14/17 04:00 97.8 44 18 141/67 95 Room Air 03/14/17 04:00 44 03/14/17 00:00 98.2 45 18 147/73 95 Room Air 03/13/17 23:55 43 03/13/17 22:00 50 20 94 Room Air 21 03/13/17 22:00 52 20 96 Room Air 21 03/13/17 20:00 45 03/13/17 20:00 98.9 45 18 141/53 94 Room Air 03/13/17 16:00 97.2 46 18 141/60 94 Room Air 03/13/17 16:00 45 03/13/17 12:00 47 03/13/17 09:00 126/64 03/13/17 08:00 42 03/13/17 08:00 97.9 41 20 126/64 96 Room Air Intake and Output 03/13/17 03/14/17 19:00 07:00 Intake Total 1618.75 ml 1075 ml Output Total 800 ml 1000 ml Balance 818.75 ml 75 ml Intake Oral 720 ml 300 ml IV Total 898.75 ml 775 ml Output Urine Total 800 ml 1000 ml Laboratory Tests 03/14/17 04:40: White Blood Count 7.5, Red Blood Count 3.36L, Hemoglobin 9.2L, Hematocrit 28.0L , Mean Corpuscular Volume 83, Mean Corpuscular Hemoglobin 27.5, Mean Corpuscular Hemoglobin Concent 33.0, Red Cell Distribution Width 13.2, Platelet Count 280, Mean Platelet Volume 6.1L, Neutrophils (%) (Auto) 61.5, Lymphocytes ( %) (Auto) 25.6, Monocytes (%) (Auto) 7.2, Eosinophils (%) (Auto) 5.0H, Basophils (%) (Auto) 0.8, Sodium Level 141, Potassium Level 4.1, Chloride Level 106, Carbon Dioxide Level 27, Anion Gap 9, Blood Urea Nitrogen 22H, Creatinine 1.4H, Estimat Glomerular Filtration Rate , Glucose Level 111H, Calcium Level 8.8 , Troponin I 0.000 Height (Feet): 5 Height (Inches): 1.00 Weight (Pounds): 180 General Appearance: no apparent distress Neck: non-tender Cardiovascular: normal peripheral pulses Respiratory/Chest: chest wall non-tender, lungs clear Abdomen: normal bowel sounds Edema: no edema noted Arm (L), no edema noted Arm (R), no edema noted Leg (L), no edema noted Leg (R), no edema noted Pedal (L), no edema noted Pedal (R), no edema noted Generalized Objective Current Medications Medications (Trade) Dose Ordered Sig/Harsh Route PRN Reason Start Time Stop Time Status Last Admin Dose Admin Acetaminophen (Tylenol) 650 mg Q4H PRN ORAL fever 03/12/17 19:30 04/11/17 19:29 Al Hydroxide/Mg Hydroxide (Mylanta II) 30 ml Q6H PRN ORAL dyspepsia 03/12/17 19:30 04/11/17 19:29 Allopurinol (Allopurinol) 300 mg DAILY ORAL 03/13/17 09:00 04/12/17 08:59 03/13/17 09:18 Budesonide/ Formoterol Fumarate (Symbicort 160/ 4.5) 2 puff BIDRT INH 03/13/17 22:00 04/12/17 21:59 03/13/17 22:00 Cefazolin Sodium 2 gm/Sodium Chloride 110 ml @ 220 mls/hr ONCE IVP 03/14/17 06:00 03/21/17 05:59 03/14/17 06:04 Dextrose (Dextrose 50%) STAT PRN IV Hypoglycemia 03/12/17 19:30 04/11/17 19:29 Heparin Sodium (Porcine) (Heparin 5000 units/ml) 5,000 units EVERY 12 HOURS SUBQ 03/12/17 21:15 04/11/17 21:14 03/13/17 09:20 Insulin Aspart (NovoLOG) BEFORE MEALS AND HS SUBQ 03/12/17 21:15 04/11/17 21:14 03/13/17 16:59 Lorazepam (Ativan 2mg/ml 1ml) 0.5 mg Q4H PRN IV For Anxiety 03/12/17 19:30 03/19/17 19:29 Losartan Potassium (Cozaar) 50 mg DAILY ORAL 03/13/17 09:00 04/12/17 08:59 Morphine Sulfate (Morphine Sulfate) 2 mg Q4H PRN IVP For Pain 4-6 03/12/17 19:30 03/19/17 19:29 03/13/17 04:36 Morphine Sulfate (Morphine Sulfate) 4 mg Q4H PRN IVP For Pain 7-10 03/12/17 19:30 03/19/17 19:29 Ondansetron HCl (Zofran) 4 mg Q6H PRN IVP Nausea & Vomiting 03/12/17 19:30 04/11/17 19:29 Polyethylene Glycol (Miralax) 17 gm HSPRN PRN ORAL Constipation 03/12/17 19:30 04/11/17 19:29 Sodium Chloride 550 ml @ 75 mls/hr Q7H20M IV 03/13/17 06:45 04/12/17 06:44 03/14/17 05:01 Sodium Chloride 1,000 ml @ 70 mls/hr [id number] IV 03/14/17 06:00 04/13/17 05:59 03/14/17 06:04 Zolpidem Tartrate (Ambien) 5 mg HSPRN PRN ORAL Insomnia 03/12/17 19:30 03/19/17 19:29 Item Value Date Time Bedside Blood Glucose 108 mg/dl 03/13/17 2100 Bedside Blood Glucose 139 mg/dl H 03/13/17 1659 Bedside Blood Glucose 168 mg/dl H 03/13/17 1239 Bedside Blood Glucose 110 mg/dl 03/13/17 0637 KITTY CORTES 2, 2018 06:38
--- NOTE | 2017-03-14 06:44 | Anethesia Preoperative Eval ---
Anesthesia Pre-op PMH/ROS General Date of Evaluation: Mar 14, 2017 Time of Evaluation: 06:38 Anesthesiologist: jose ASA Score: ASA 4 Mallampati Score Class I : Soft palate, uvula, fauces, pillars visible Class II: Soft palate, uvula, fauces visible Class III: Soft palate, base of uvula visible Class IV: Only hard plate visible Mallampati Classification: Class II Surgeon: chetna Diagnosis: symptomatic bradycardia Surgical Procedure: permanent pacemaker placement Anesthesia History: other - delayed emergence Family History: no anesthesia problems Allergies: Coded Allergies: No Known Allergies (Unverified , 07/18/12) Medications: see eMAR Past Medical History Cardiovascular: Reports: HTN, arrhythmia Gastrointestinal/Genitourinary: Reports: GERD, other - kidney stones Endocrine: Reports: DM Anesthesia Pre-op Phys. Exam Physician Exam Last Vital Signs Date Time Temp Pulse Resp B/P (MAP) Pulse Ox O2 Delivery O2 Flow Rate FiO2 03/14/17 04:00 97.8 44 18 141/67 95 Room Air 03/13/17 22:00 21 Constitutional: NAD Cardiovascular: other - bradycardia Respiratory: CTA Gastrointestinal: S/NT/ND Airway Exam Mallampati Score: Class II MO: limited Neck: short TMD: 2fb ROM: limited Anesthesia Pre-op A/P Labs Hematology Test 03/14/17 04:40 White Blood Count 7.5 K/UL (4.8-10.8) Red Blood Count 3.36 M/UL (4.20-5.40) L Hemoglobin 9.2 G/DL (12.0-16.0) L Hematocrit 28.0 % (37.0-47.0) L Mean Corpuscular Volume 83 FL (80-99) Mean Corpuscular Hemoglobin 27.5 PG (27.0-31.0) Mean Corpuscular Hemoglobin Concent 33.0 G/DL (32.0-36.0) Red Cell Distribution Width 13.2 % (11.6-14.8) Platelet Count 280 K/UL (150-450) Mean Platelet Volume 6.1 FL (6.5-10.1) L Neutrophils (%) (Auto) 61.5 % (45.0-75.0) Lymphocytes (%) (Auto) 25.6 % (20.0-45.0) Monocytes (%) (Auto) 7.2 % (1.0-10.0) Eosinophils (%) (Auto) 5.0 % (0.0-3.0) H Basophils (%) (Auto) 0.8 % (0.0-2.0) Chemistry Test 03/14/17 04:40 Sodium Level 141 MMOL/L (136-145) Potassium Level 4.1 MMOL/L (3.5-5.1) Chloride Level 106 MMOL/L (98-107) Carbon Dioxide Level 27 MMOL/L (21-32) Anion Gap 9 mmol/L (5-15) Blood Urea Nitrogen 22 mg/dL (7-18) H Creatinine 1.4 MG/DL (0.55-1.30) H Estimat Glomerular Filtration Rate mL/min (>60) Glucose Level 111 MG/DL (74-106) H Calcium Level 8.8 MG/DL (8.5-10.1) Troponin I 0.000 ng/mL (0.000-0.056) Risk Assessment & Plan Assessment: [email or web address] Plan: mac Status Change Before Surgery: GHAZALA Flowers Mar 14, 2017 06:44
[2017-03-14] MEDS ORDERED: DiphenhydrAMINE 50mg/ml Inj IVP PRN ×2 (06:45→07:30)
[2017-03-14] MEDS ORDERED: Midazolam 2mg/2ml Inj IVP PRN ×2 (06:45→07:30)
[2017-03-14] MEDS ORDERED: fentaNYL 100 mcg/2 mL IV PRN ×2 (06:45→07:30)
[2017-03-14] MEDS ORDERED: Atropine Inj 1mg/10ml Syr IV PRN ×2 (06:45→07:30)
[2017-03-14] MEDS ORDERED: Iothalamate Meglumine 60% 30ML INJ ONE (06:47)
[2017-03-14] MEDS ORDERED: Isovue-M 300 15ml INJ ONE (06:48)
[2017-03-14] MEDS: Bacitracin 50000 Units Vial ONE (06:50)
[2017-03-14] MEDS: Bupivacaine 0.25% Inj 30ml INJ ONE (06:50)
--- NOTE | 2017-03-14 06:57 | Pre-Procedure Note/Attestation ---
Pre-Procedure Note/Attestation Complete Prior to Procedure Planned Procedure: left Procedure Narrative: permanent pacemaker implant Indications for Procedure Pre-Operative Diagnosis: 2nd deg av block 2: 1 conduction Attestation I attest that I discussed the nature of the procedure; its benefits; risks and complications; and alternatives (and the risks and benefits of such alternatives ), prior to the procedure, with the patient (or the patient's legal arborist representative). I attest that, if there was a reasonable possibility of needing a blood transfusion, the patient (or the patient's legal arborist representative) was given the [facility] standardized written summary, pursuant to the [place] Blood Safety Act ([place] Health and Safety Code # 1645, as amended). I attest that I re-evaluated the patient just prior to the surgery and that there has been no change in the patient's H&P, except as documented below:none TERRY BLUE Mar 14, 2017 06:56
[2017-03-14] MEDS ORDERED: Midazolam 2mg/2ml Inj ONE (07:00)
[2017-03-14] MEDS ORDERED: fentaNYL 100 mcg/2 mL IV ONE (07:00)
[2017-03-14] MEDS ORDERED: LR 1000ml ONE (07:00)
[2017-03-14] MEDS ORDERED: Sterile Water Irrig 1000ml IRRIG ONE (07:00)
[2017-03-14] MEDS ORDERED: Lidocaine 1% MPF 10mg/ml 5ml ONE (07:00)
[2017-03-14] MEDS ORDERED: Propofol 1,000mg/ 100ml btl IV ONE (07:00)
[2017-03-14] MEDS ORDERED: NS Irrig 1000ml ONE (07:00)
[2017-03-14] MEDS: Lidocaine 1% Plain 30 ml INJ ONE (07:15)
[2017-03-14] MEDS ORDERED: LR 1000ml 1,000 ML IVLG SCH (07:23)
--- NOTE | 2017-03-14 07:28 | Immediate Post-Op Evaluation ---
Immediate Post-Op Evalulation Immediate Post-Op Evalulation Procedure: Permanent Pacemaker Date of Evaluation: Mar 14, 2017 Time of Evaluation: 09:03 IV Fluids: 500 LR Blood Products: 0 Estimated Blood Loss: 10 Urinary Output: 0 Blood Pressure Systolic: 152 Blood Pressure Diastolic: 67 Pulse Rate: 67 Respiratory Rate: 16 O2 Sat by Pulse Oximetry: 100 Temperature (Fahrenheit): 98.4 Pain Score (1-10): 2 Nausea: No Vomiting: No Complications 0 Patient Status: awake, reacts, patent, none Hydration Status: adequate Dru Gram Ancef IV Given Within 1 Hr of Incision: Yes Time Given: 06:58 Tobin Ochoa MD Mar 14, 2017 07:28
[2017-03-14] MEDS ORDERED: Labetalol 5mg/ml 20ml vial IV PRN (07:30)
[2017-03-14] MEDS ORDERED: oxyCODONE HCL/Acetaminophen 5/325mg ORAL PRN (07:30)
[2017-03-14] MEDS ORDERED: LORazepam Inj 2mg/ml 1ml IV PRN (07:30)
[2017-03-14] MEDS ORDERED: Norco 5mg/325mg tab ORAL PRN (07:30)
[2017-03-14] MEDS ORDERED: HYDROcodone/Acetamin 7.5/325 tab ORAL PRN (07:30)
[2017-03-14] MEDS ORDERED: Hydromorphone 0.5mg/0.5ml inj IVP PRN (07:30)
[2017-03-14] MEDS ORDERED: Tylenol #3 tab (300mg/30mg) ORAL PRN (08:45)
--- NOTE | 2017-03-14 08:48 | Operative Note - PDOC ---
Operative Note Operative Note Date of Operation/Procedure: Mar 14, 2017 Pre-op Diagnosis: 2nd deg av block 2: 1 conduction Procedure: permanent pacemaker Post-op Diagnosis: second deg 2:1 av block Post-op Diagnosis: same as pre-op Anesthesia: local, MAC Specimen: none Complications: none Condition: stable Estimated Blood Loss: minimal Drains: none Implant(s) used?: Yes Indications for Procedure second deg av block Description of Procedure see dictation TERRY BLUE Mar 14, 2017 08:48
--- NOTE | 2017-03-14 09:16 | General Progress Note ---
Assessment/Plan Assessment/Plan (1) Left knee pain (2) Left knee OA (3) Gout (4) Chest pain (5) Second degree heart block (6) Congestive heart failure Pt to be continued on Morphine as needed D/w Dr. Bruner and he concurred. Subjective Date patient seen: Mar 14, 2017 Time patient seen: 06:00 - am Constitutional: Reports: no symptoms HEENT: Reports: no symptoms Cardiovascular: Reports: palpitations Respiratory: Reports: no symptoms Gastrointestinal/Abdominal: Reports: no symptoms Genitourinary: Reports: no symptoms Neurologic/Psychiatric: Reports: no symptoms Endocrine: Reports: no symptoms Hematologic/Lymphatic: Reports: no symptoms Allergies: Coded Allergies: No Known Allergies (Unverified , 07/18/12) Subjective Patient reports that she has been comfortable and is looking forward to pacemaker placement this morning. She has no new complaints. Objective Last 24 Hour Vital Signs Date Time Temp Pulse Resp B/P (MAP) Pulse Ox O2 Delivery O2 Flow Rate FiO2 03/14/17 09:00 58 14 157/70 99 Simple Mask 6.0 03/14/17 08:55 60 13 155/62 99 Simple Mask 6.0 03/14/17 08:54 67 16 100 03/14/17 08:52 98.4 57 14 152/69 99 Simple Mask 6.0 03/14/17 04:00 97.8 44 18 141/67 95 Room Air 03/14/17 04:00 44 03/14/17 00:00 98.2 45 18 147/73 95 Room Air 03/13/17 23:55 43 03/13/17 22:00 50 20 94 Room Air 21 03/13/17 22:00 52 20 96 Room Air 21 03/13/17 20:00 45 03/13/17 20:00 98.9 45 18 141/53 94 Room Air 03/13/17 16:00 97.2 46 18 141/60 94 Room Air 03/13/17 16:00 45 03/13/17 12:00 47 Intake and Output 03/13/17 03/14/17 19:00 07:00 Intake Total 1618.75 ml 1150 ml Output Total 800 ml 1000 ml Balance 818.75 ml 150 ml Intake Oral 720 ml 300 ml IV Total 898.75 ml 850 ml Output Urine Total 800 ml 1000 ml Laboratory Tests 03/14/17 04:40: White Blood Count 7.5, Red Blood Count 3.36L, Hemoglobin 9.2L, Hematocrit 28.0L , Mean Corpuscular Volume 83, Mean Corpuscular Hemoglobin 27.5, Mean Corpuscular Hemoglobin Concent 33.0, Red Cell Distribution Width 13.2, Platelet Count 280, Mean Platelet Volume 6.1L, Neutrophils (%) (Auto) 61.5, Lymphocytes ( %) (Auto) 25.6, Monocytes (%) (Auto) 7.2, Eosinophils (%) (Auto) 5.0H, Basophils (%) (Auto) 0.8, Sodium Level 141, Potassium Level 4.1, Chloride Level 106, Carbon Dioxide Level 27, Anion Gap 9, Blood Urea Nitrogen 22H, Creatinine 1.4H, Estimat Glomerular Filtration Rate , Glucose Level 111H, Calcium Level 8.8 , Troponin I 0.000 Height (Feet): 5 Height (Inches): 1.00 Weight (Pounds): 180 General Appearance: no apparent distress, alert EENT: PERRL/EOMI, normal ENT inspection Neck: normal alignment, supple Cardiovascular: regularly irregular Respiratory/Chest: lungs clear, normal breath sounds Abdomen: non tender, soft Extremities: non-tender Edema: trace edema Neurologic: alert, oriented x 3 Skin: warm/dry WILLIAMS SANCHEZ PBarbara Mar 14, 2017 09:16
[2017-03-14] MEDS: Heparin 5000 units/ml inj SUBQ SCH ×2 (10:30→21:00)
[2017-03-14] MEDS: Losartan 50mg tab ORAL SCH (10:30)
--- NOTE | 2017-03-14 12:54 | Consultation ---
DATE OF CONSULTATION: 03/13/2017 PAIN MANAGEMENT CONSULTATION CONSULTING PHYSICIAN: Yoandy Bruner M.D. REFERRING PHYSICIAN: Sussy Edwards M.D. PHYSICIAN ENTERPRISE ARCHITECT: Elli Gill CHIEF COMPLAINT: Left knee pain. HISTORY OF PRESENT ILLNESS: This is a 72-year-old female, who is being seen in the [facility] for initial comprehensive pain management consultation. The patient was admitted under the care of Dr. Reddy due to chest pain, found to have a second-degree heart block with CHF, scheduled for pacemaker placement. Complaining of left knee pain, which she has had for the past 3 years. The pain is chronic, rating at 7/10 at its worst, describing as sharp pain, increased with walking, and decreased with rest. At this time, we were consulted so that the patient would have adequate pain control while here in the hospital. PAST MEDICAL HISTORY: Hypertension, diabetes mellitus, and gout. PAST SURGICAL HISTORY: Kidney stone removal. SOCIAL HISTORY: Denies smoking tobacco, drinking alcohol, or drug abuse. Allopurinol, Symbicort, hydrochlorothiazide, losartan, Janumet, and metformin. REVIEW OF SYSTEMS: Denies rash, fever, chills, sweating, dizziness, drowsiness, blurred vision, sore throat, change in hearing or weight. No shortness of breath. No nausea, vomiting, diarrhea, or blood in the stool or urine. No bowel or bladder incontinence. No dysuria. She is complaining of left knee pain and chest pain. PHYSICAL EXAMINATION: GENERAL: Alert, awake, and oriented x3. VITAL SIGNS: Blood pressure 126/64, heart rate is 41, oxygen saturation is 96%, respiratory rate is 20, and temperature 98.9 degrees Fahrenheit. Height is 5 feet 1 inch and weight is 188 pounds. HEENT: PERRLA. NECK: Range of motion is full in all directions. No tenderness to palpation at the paracervical muscles. LUNGS: Decreased breath sounds bilaterally. HEART: S1, S2 irregular. ABDOMEN: Obese. BACK: Range of motion is decreased in flexion and extension. EXTREMITIES: Upper and lower extremity range of motion is decreased due to the patient's condition. Motor is intact. No cyanosis. No clubbing. Edema noted in lower extremities. Sensory is intact. Reflexes are not obtainable. No adenopathy. ASSESSMENT AND PLAN: This is a 72-year-old female with left knee pain, left knee osteoarthritis, gout, chest pain, congestive heart failure, second-degree heart block. The patient will be continued on morphine 2 to 4 mg IV every 4 hours as needed for moderate to severe pain. The patient was discussed with Dr. Bruner and Dr. Bruner concurred. We will follow the patient. Thank you very much for the courtesy of this consultation. Yoandy Bruner M.D. KAYA Gill DR: CHRISTIE JOB#: [id number] CC:
--- NOTE | 2017-03-14 12:55 | Consultation ---
DATE OF CONSULTATION: 03/13/2017 CARDIAC ELECTROPHYSIOLOGY CONSULTATION CONSULTING PHYSICIAN: Ilene Ji M.D. REFERRING PHYSICIAN: Juvenal Argueta M.D. REASON FOR CONSULTATION: A 2:1 second-degree AV block. HISTORY OF PRESENT ILLNESS: The patient is a 72-year-old woman with hypertension and type 2 diabetes, who presented to the emergency room with a two-day history of chest abdominal and flank pain. This is associated with mild shortness of breath and a nonproductive cough. Over the past week, she has also noted increasing leg edema. She was found to be in second-degree AV block with 2:1 conduction ventricular rates in the 40s, right bundle-branch block, and left anterior hemiblock. Cardiac Electrophysiology evaluation was requested. She denies palpitations, dizziness, lightheadedness, or syncope. She was recently hospitalized at [facility] last month for ureteroscopy for renal calculi. During that admission, she was also noted to have 2:1 second-degree AV block, but was felt to be asymptomatic and discharged. PAST MEDICAL HISTORY: As noted above, hypertension, type 2 diabetes, history of coronary angiography with no obstructive coronary lesions in 2012, history of renal calculi, status post lithotripsy, and ureteroscopy in 01/2017 and 02/2017. MEDICATIONS: Janumet, allopurinol, losartan, hydrochlorothiazide, and Flonase. ALLERGIES: No known drug allergies. 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 She is a nonsmoker. Drinks alcohol occasionally and does not use any drugs. PHYSICAL EXAMINATION: VITAL SIGNS: Pulse 48, blood pressure 149/64, respirations 16, and afebrile. GENERAL: Alert, well-developed woman, in no acute distress. HEENT: Normocephalic and atraumatic. Pupils are equal, round, and reactive to light. Sclerae anicteric. NECK: Supple. There is no jugular venous distention. LUNGS: Few crackles at the bases. No chest wall tenderness. No respiratory distress. HEART: Bradycardic. Regular S1, S2 with no murmurs or S3. ABDOMEN: Soft, nontender. No palpable mass. EXTREMITIES: A 2+ pitting pedal and ankle edema bilaterally. NEUROLOGIC: No gross focal motor deficits. SKIN: No rashes or lesions. LABORATORY AND DIAGNOSTIC DATA: Laboratory data, potassium 4.0, BUN 23, creatinine 1.4, glucose 115. Troponin 0. Hemoglobin 9.7, hematocrit 29, and white blood count 6800. INR 1.0. EKG shows sinus rhythm at a rate of 90 beats per minute and 2:1 second-degree AV block with a ventricular rate of 45 beats per minute, right bundle-branch block, and left anterior hemiblock. Chest x-ray is pending. ASSESSMENT AND RECOMMENDATIONS: The patient is a 72-year-old woman with hypertension, diabetes, and 2:1 second-degree AV block, right bundle-branch block, and left anterior hemiblock. She appears to have advanced infranodal conduction disease, this is likely infranodal, given her bundle branch block and left anterior hemiblock. She has had symptoms consistent with congestive heart failure with cough, shortness of breath, and peripheral edema, which may be due to bradycardia and AV block. I would favor permanent pacemaker placement for treatment of second-degree 2:1 AV block likely at the infrarenal level. I discussed this with her including potential risks and benefits. She understands and is in agreement with proceeding. The procedure will be scheduled for later today. An echo will be obtained to assess LV function and chest x-ray done preoperatively. Ilene Ji M.D. DR: SKYLA JOB#: [id number] CC:
--- NOTE | 2017-03-14 12:55 | Consultation ---
DATE OF CONSULTATION: 03/12/2017 CARDIAC ELECTROPHYSIOLOGY CONSULT REASON FOR CONSULTATION: Second-degree heart block. HISTORY OF PRESENT ILLNESS: The patient is a 72-year-old woman with hypertension, type 2 diabetes, and recent hospitalization at [facility] last month. INCOMPLETE DICTATION Ilene Ji M.D. DR: Teresita JOB#: [id number] CC:
--- NOTE | 2017-03-14 12:56 | Consultation ---
DATE OF CONSULTATION: 03/13/2017 CARDIOLOGY CONSULTATION CONSULTING PHYSICIAN: Juvenal Argueta M.D. REFERRING PHYSICIANS: Sussy Edwards M.D. and Alonso Reddy M.D. REASON FOR REFERRAL: Bradycardia. HISTORY OF PRESENT ILLNESS: This is a 72-year-old female, who is known to me from prior evaluation and hospitalization. The patient has had a recent bilateral renal calculi, status post bilateral ureteroscopy and stent placement, but subsequently removed. During that hospitalization, when the stents were placed, she did have some respiratory issues requiring re-intubation post extubation postop and was subsequently extubated and minimal troponin rises felt to be demand related. She has had some bradycardia asymptomatic 2:1 block and this was persistent, she was discharged home with recommendation for followup. In the meantime, post discharge, she started developing some pain in her abdominal area bilaterally and yesterday came to the emergency room for further evaluation, was noted to be bradycardic and was subsequently admitted. She really has not had any syncope or near syncope and she has not had any chest pain or shortness of breath. No PND. No orthopnea. No palpitations. No dizziness or lightheadedness. PAST MEDICAL HISTORY: Positive for history of renal calculi, status post bilateral stents and removal subsequent to respiratory failure post extubation, troponin abnormality secondary to demand ischemia with normal coronaries in 2012 by cardiac catheterization at [facility], history of bradycardia, history of diabetes mellitus, nephrolithiasis, gout, systemic hypertension, and urinary tract infection. She is status post right breast lumpectomy and hysterectomy as well as cystoscopy. ALLERGIES: She is not allergic to any medications. SOCIAL HISTORY: She does not smoke. Does not use drugs use alcoholic beverages. REVIEW OF SYSTEMS: GASTROINTESTINAL: Somewhat constipated. GENITOURINARY: Negative. She has a Grajeda catheter in place at this time. CONSTITUTIONAL: Negative. PULMONARY: She does have some coughing. NEUROLOGIC: Negative. PHYSICAL EXAMINATION: GENERAL: Shows to be an elderly female, in no respiratory distress. NECK: Supple. No jugular venous distention. LUNGS: Clear to auscultation and percussion. CARDIAC: Regular rhythm. Bradycardic. No heaves or thrills noted. ABDOMEN: Soft. Obese. Positive bowel sounds. Nontender. EXTREMITIES: There is no edema. NEUROLOGIC: She is awake, alert, and responsive. LABORATORY AND DIAGNOSTIC DATA: EKG shows sinus with 2:1 block with right bundle-branch conduction defect with left anterior fascicular block, and of course intermittent 2:1 AV block. White count 6.8, hemoglobin 9.7, and platelet count 317,000. Sodium is 142, potassium 4.3, chloride 105, bicarb 32, BUN 23, creatinine 1.4, and glucose of 115. Albumin of 3.0. TSH of 1.87. Troponin was negative and urinalysis is 5 to 10 WBCs. INR 1.0 and PTT of 23. The patient's vital signs, blood pressure 126/64 to 148/63, heart rate in the 40s, and temperature 98.6. ASSESSMENT: 1. Second-degree atrioventricular block. Persistent bradycardia. 2. Right bundle-branch block. 3. Left anterior fascicular block. 4. Hypertension. 5. Diabetes mellitus. 6. Status post recent ureteral stent. This patient was seen in cardiac consultation. The patient does not appear to be symptomatic at the present time. Nevertheless, the fact that she has persistent bradycardia and being off medications, and the right bundle branch and left anterior fascicular block makes me nervous, and does have high-grade AV block, right bundle left anterior fascicular now, second-degree AV block. She was supposed to be seeing me as outpatient sometime next week for reevaluation of the need for pacemaker, but now that she is in the hospital, she should proceed with pacing. I have asked Dr. Ji to see her in consultation for placement of the pacemaker. This will be planned for Friday. The case was discussed with the patient and Dr. Ji as well. Juvenal Argueta M.D. DR: LUKAS JOB#: [id number] CC:
--- NOTE | 2017-03-14 13:30 | Pulmonology Progress Note ---
Assessment/Plan Problems: (1) Second degree heart block (2) Congestive heart failure (3) Chest pain with moderate risk of acute coronary syndrome Assessment/Plan pace maker placed symptomatic treatment f/u cardio recommendations dvt porphylaxis Subjective ROS Limited/Unobtainable: No Allergies: Coded Allergies: No Known Allergies (Unverified , 07/18/12) Objective Last 24 Hour Vital Signs Date Time Temp Pulse Resp B/P (MAP) Pulse Ox O2 Delivery O2 Flow Rate FiO2 03/14/17 12:00 97.3 62 18 142/68 96 Nasal Cannula 3.0 03/14/17 12:00 61 03/14/17 10:44 61 20 95 Room Air 21 03/14/17 10:44 61 20 95 Room Air 21 03/14/17 10:30 151/84 03/14/17 10:02 97.7 71 17 151/84 99 Nasal Cannula 3.0 03/14/17 09:55 97.8 57 16 138/71 100 Nasal Cannula 3.0 03/14/17 09:40 60 14 149/72 98 Nasal Cannula 3.0 03/14/17 09:30 56 15 143/65 99 Nasal Cannula 3.0 03/14/17 09:20 59 15 153/77 99 Simple Mask 6.0 03/14/17 09:10 62 12 159/73 98 Simple Mask 6.0 03/14/17 09:00 58 14 157/70 99 Simple Mask 6.0 03/14/17 08:55 60 13 155/62 99 Simple Mask 6.0 03/14/17 08:54 67 16 100 03/14/17 08:52 98.4 57 14 152/69 99 Simple Mask 6.0 03/14/17 04:00 97.8 44 18 141/67 95 Room Air 03/14/17 04:00 44 03/14/17 00:00 98.2 45 18 147/73 95 Room Air 03/13/17 23:55 43 03/13/17 22:00 50 20 94 Room Air 21 03/13/17 22:00 52 20 96 Room Air 21 03/13/17 20:00 45 03/13/17 20:00 98.9 45 18 141/53 94 Room Air 03/13/17 16:00 97.2 46 18 141/60 94 Room Air 03/13/17 16:00 45 Intake and Output 03/13/17 03/14/17 19:00 07:00 Intake Total 1618.75 ml 1150 ml Output Total 800 ml 1000 ml Balance 818.75 ml 150 ml Intake Oral 720 ml 300 ml IV Total 898.75 ml 850 ml Output Urine Total 800 ml 1000 ml General Appearance: WD/WN HEENT: normocephalic, atraumatic Respiratory/Chest: chest wall non-tender, lungs clear Breasts: no masses Cardiovascular: normal peripheral pulses Abdomen: normal bowel sounds Skin: no rash Laboratory Tests 03/14/17 04:40: White Blood Count 7.5, Red Blood Count 3.36L, Hemoglobin 9.2L, Hematocrit 28.0L , Mean Corpuscular Volume 83, Mean Corpuscular Hemoglobin 27.5, Mean Corpuscular Hemoglobin Concent 33.0, Red Cell Distribution Width 13.2, Platelet Count 280, Mean Platelet Volume 6.1L, Neutrophils (%) (Auto) 61.5, Lymphocytes ( %) (Auto) 25.6, Monocytes (%) (Auto) 7.2, Eosinophils (%) (Auto) 5.0H, Basophils (%) (Auto) 0.8, Sodium Level 141, Potassium Level 4.1, Chloride Level 106, Carbon Dioxide Level 27, Anion Gap 9, Blood Urea Nitrogen 22H, Creatinine 1.4H, Estimat Glomerular Filtration Rate , Glucose Level 111H, Calcium Level 8.8 , Troponin I 0.000 Current Medications Medications (Trade) Dose Ordered Sig/Harsh Route PRN Reason Start Time Stop Time Status Last Admin Dose Admin Acetaminophen (Tylenol) 650 mg Q6H PRN ORAL Mild Pain/Temp > 100.5 03/14/17 08:45 04/13/17 08:44 Acetaminophen/ Codeine Phosphate (Tylenol #3) 1 tab Q6H PRN ORAL MOD-SEVERE PAIN 03/14/17 08:45 03/21/17 08:44 Acetaminophen/ Hydrocodone Bitart (Blackstone 5/325) 1 tab Q1H PRN ORAL Mild Pain (Pain Scale 1-3) 03/14/17 07:30 03/14/17 13:30 Acetaminophen/ Hydrocodone Bitart (Blackstone 7.5/325) 1 tab Q1H PRN ORAL Moderate Pain (Pain Scale 4-6) 03/14/17 07:30 03/14/17 13:30 Al Hydroxide/Mg Hydroxide (Mylanta II) 30 ml Q6H PRN ORAL dyspepsia 03/12/17 19:30 04/11/17 19:29 Al Hydroxide/Mg Hydroxide (Mylanta) 15 ml Q1H PRN ORAL gi upset 03/14/17 07:30 03/14/17 13:30 Allopurinol (Allopurinol) 300 mg DAILY ORAL 03/13/17 09:00 04/12/17 08:59 03/14/17 10:30 Atropine Sulfate (Atropine) 0.5 mg Q5M PRN IV HR <40 03/14/17 07:30 03/14/17 13:30 Budesonide/ Formoterol Fumarate (Symbicort 160/ 4.5) 2 puff BIDRT INH 03/13/17 22:00 04/12/17 21:59 03/14/17 10:00 Cefazolin Sodium 1 gm/Sodium Chloride 55 ml @ 110 mls/hr Q8H IVPB 03/14/17 15:00 03/21/17 14:59 Dextrose (Dextrose 50%) STAT PRN IV Hypoglycemia 03/12/17 19:30 04/11/17 19:29 Diphenhydramine HCl (Benadryl) 25 mg Q15M PRN IVP Itching 03/14/17 07:30 03/14/17 13:30 Fentanyl Citrate (Sublimaze 100 mcg/2 mL) 25 mcg Q10M PRN IV Moderate Pain (Pain Scale 4-6) 03/14/17 07:30 03/14/17 13:30 Heparin Sodium (Porcine) (Heparin 5000 units/ml) 5,000 units EVERY 12 HOURS SUBQ 03/12/17 21:15 04/11/17 21:14 03/14/17 10:30 Hydralazine HCl (Apresoline) 5 mg Q30M PRN IV SBP>160 / DBP>90 03/14/17 07:30 03/14/17 13:30 Hydromorphone HCl (Dilaudid) 0.5 mg Q15M PRN IVP Severe Pain (Pain Scale 7-10) 03/14/17 07:30 03/14/17 13:30 Insulin Aspart (NovoLOG) BEFORE MEALS AND HS SUBQ 03/12/17 21:15 04/11/17 21:14 03/14/17 11:53 Labetalol HCl (Normodyne) 5 mg Q10M PRN IV SBP>160 / DBP>90 03/14/17 07:30 03/14/17 13:30 Lorazepam (Ativan 2mg/ml 1ml) 0.5 mg Q4H PRN IV For Anxiety 03/12/17 19:30 03/19/17 19:29 Lorazepam (Ativan 2mg/ml 1ml) 1 mg Q15M PRN IV For Anxiety 03/14/17 07:30 03/14/17 13:30 Losartan Potassium (Cozaar) 50 mg DAILY ORAL 03/13/17 09:00 04/12/17 08:59 03/14/17 10:30 Midazolam HCl (Versed 2mg/2ml vial) 1 mg Q15M PRN IVP For Anxiety 03/14/17 07:30 03/14/17 13:30 Morphine Sulfate (Morphine Sulfate) 2 mg Q4H PRN IVP For Pain 4-6 03/12/17 19:30 03/19/17 19:29 03/13/17 04:36 Morphine Sulfate (Morphine Sulfate) 4 mg Q4H PRN IVP For Pain 7-10 03/12/17 19:30 03/19/17 19:29 Ondansetron HCl (Zofran) 4 mg Q1H PRN IVP Nausea & Vomiting 03/14/17 07:30 03/14/17 13:30 Ondansetron HCl (Zofran) 4 mg Q6H PRN IVP Nausea & Vomiting 03/12/17 19:30 04/11/17 19:29 Oxycodone/ Acetaminophen (Percocet 5-325) 1 tab Q1H PRN ORAL Severe Pain (Pain Scale 7-10) 03/14/17 07:30 03/14/17 13:30 Polyethylene Glycol (Miralax) 17 gm HSPRN PRN ORAL Constipation 03/12/17 19:30 04/11/17 19:29 Sodium Chloride 550 ml @ 75 mls/hr Q7H20M IV 03/13/17 06:45 04/12/17 06:44 03/14/17 11:55 Sodium Chloride 1,000 ml @ 70 mls/hr [id number] IV 03/14/17 06:00 3/4/18 05:59 03/14/17 06:04 Zolpidem Tartrate (Ambien) 5 mg HSPRN PRN ORAL Insomnia 03/12/17 19:30 03/19/17 19:29 WILLIS CHATTERJEE Mar 14, 2017 13:30
--- NOTE | 2017-03-14 14:17 | Diagnostic Imaging Report ---
Indication: Dyspnea Comparison: June 10, 2017 A single view chest radiograph was obtained. Findings: No definite infiltrate or pulmonary vascular congestion identified. Dual lead Pacemaker noted on the left. Both leads project over the area of the right ventricle. No pneumothorax identified. The heart is enlarged. The aorta is mildly enlarged consistent with atherosclerotic vascular disease. The bones are osteopenic. Impression: Pacemaker. No pneumothorax. Both leads of the pacemaker project over the right ventricle. Please correlate clinically.
[2017-03-14] MEDS: ceFAZolin sod 1 GM in NS 55 ML IVPB SCH ×2 (15:00→22:15)
--- NOTE | 2017-03-14 17:04 | Cardiology Progress Note ---
Assessment/Plan Assessment/Plan 1. Second-degree atrioventricular block. Persistent bradycardia. 2. Right bundle-branch block. 3. Left anterior fascicular block. 4. Hypertension. 5. Diabetes mellitus. 6. Status post recent ureteral stent. s/p pacer implantation earlier to day pacer not seem to be capturing will d/w dr phillips leads may need to be repostioned cxr reviewed personally Subjective Cardiovascular: Reports: chest pain, Denies: irregular heart rate, lightheadedness Respiratory: Denies: shortness of breath Gastrointestinal/Abdominal: Denies: abdominal pain Genitourinary: Denies: burning Subjective incisional pain Objective Last 24 Hour Vital Signs Date Time Temp Pulse Resp B/P (MAP) Pulse Ox O2 Delivery O2 Flow Rate FiO2 03/14/17 12:00 97.3 62 18 142/68 96 Nasal Cannula 3.0 03/14/17 12:00 61 03/14/17 10:44 61 20 95 Room Air 21 03/14/17 10:44 61 20 95 Room Air 21 03/14/17 10:30 151/84 03/14/17 10:02 97.7 71 17 151/84 99 Nasal Cannula 3.0 03/14/17 09:55 97.8 57 16 138/71 100 Nasal Cannula 3.0 03/14/17 09:40 60 14 149/72 98 Nasal Cannula 3.0 03/14/17 09:30 56 15 143/65 99 Nasal Cannula 3.0 03/14/17 09:20 59 15 153/77 99 Simple Mask 6.0 03/14/17 09:10 62 12 159/73 98 Simple Mask 6.0 03/14/17 09:00 58 14 157/70 99 Simple Mask 6.0 03/14/17 08:55 60 13 155/62 99 Simple Mask 6.0 03/14/17 08:54 67 16 100 03/14/17 08:52 98.4 57 14 152/69 99 Simple Mask 6.0 03/14/17 04:00 97.8 44 18 141/67 95 Room Air 03/14/17 04:00 44 03/14/17 00:00 98.2 45 18 147/73 95 Room Air 03/13/17 23:55 43 03/13/17 22:00 50 20 94 Room Air 21 03/13/17 22:00 52 20 96 Room Air 21 03/13/17 20:00 45 03/13/17 20:00 98.9 45 18 141/53 94 Room Air General Appearance: alert, obese Cardiovascular: normal rate, bradycardia Respiratory/Chest: lungs clear, normal breath sounds Abdomen: normal bowel sounds, non tender, soft Extremities: no swelling Intake and Output 03/13/17 03/14/17 19:00 07:00 Intake Total 1618.75 ml 1150 ml Output Total 800 ml 1000 ml Balance 818.75 ml 150 ml Intake Oral 720 ml 300 ml IV Total 898.75 ml 850 ml Output Urine Total 800 ml 1000 ml Laboratory Tests Test 03/14/17 04:40 White Blood Count 7.5 K/UL (4.8-10.8) Red Blood Count 3.36 M/UL (4.20-5.40) L Hemoglobin 9.2 G/DL (12.0-16.0) L Hematocrit 28.0 % (37.0-47.0) L Mean Corpuscular Volume 83 FL (80-99) Mean Corpuscular Hemoglobin 27.5 PG (27.0-31.0) Mean Corpuscular Hemoglobin Concent 33.0 G/DL (32.0-36.0) Red Cell Distribution Width 13.2 % (11.6-14.8) Platelet Count 280 K/UL (150-450) Mean Platelet Volume 6.1 FL (6.5-10.1) L Neutrophils (%) (Auto) 61.5 % (45.0-75.0) Lymphocytes (%) (Auto) 25.6 % (20.0-45.0) Monocytes (%) (Auto) 7.2 % (1.0-10.0) Eosinophils (%) (Auto) 5.0 % (0.0-3.0) H Basophils (%) (Auto) 0.8 % (0.0-2.0) Sodium Level 141 MMOL/L (136-145) Potassium Level 4.1 MMOL/L (3.5-5.1) Chloride Level 106 MMOL/L (98-107) Carbon Dioxide Level 27 MMOL/L (21-32) Anion Gap 9 mmol/L (5-15) Blood Urea Nitrogen 22 mg/dL (7-18) H Creatinine 1.4 MG/DL (0.55-1.30) H Estimat Glomerular Filtration Rate mL/min (>60) Glucose Level 111 MG/DL (74-106) H Calcium Level 8.8 MG/DL (8.5-10.1) Troponin I 0.000 ng/mL (0.000-0.056) ANUEL HENNESSY Mar 14, 2017 17:04
--- NOTE | 2017-03-14 17:15 | History and Physical Report ---
DATE OF ADMISSION: 03/12/2017 CHIEF COMPLAINT: The patient is a 72-year-old female who presented with chief complaint of chest pain. HISTORY OF PRESENT ILLNESS: History of present illness began on Friday03/11/2017. The patient began to experience epigastric pain. This has worsened with inspiration. Pain radiated to bilateral flanks. The patient also complained of right leg swelling. The patient was evaluated by Dr. Alonso Reddy last . The patient was told to go to the emergency room if pain persisted. The patient presented to [facility] complaining of epigastric pain. The patient was found to be bradycardic with pulse rate in the 40s. The patient was admitted for chest pain and bradycardia to rule out acute coronary syndrome. REVIEW OF SYSTEMS: CONSTITUTIONAL: The patient denies weight loss or weight gain. The patient denies fevers or chills. HEENT: The patient denies ear or throat pain. The patient denies headache. CARDIOVASCULAR: The patient complains of chest pain as above. The patient denies palpitations. ABDOMEN: The patient complains of epigastric pain with bilateral flank pain. The patient denies nausea, vomiting, diarrhea, or constipation. GENITOURINARY: The patient denies dysuria or increased frequency of urination. NEUROMUSCULAR: The patient denies seizures or generalized weakness. PAST MEDICAL HISTORY: Significant for: 1. Diabetes type 2. 2. Hypertension. 3. History of gout. PAST SURGICAL HISTORY: Significant for: 1. Cystoscopy in January 2017 and again in February 2017 for renal calculi. 2. Total abdominal hysterectomy. CURRENT MEDICATIONS: 1. Allopurinol 300 mg one tablet p.o. at bedtime. 2. Symbicort 160/4.5 two puffs p.o. twice daily. 3. Hydrochlorothiazide 25 mg p.o. daily. 4. Losartan 50 mg p.o. daily. 5. Janumet one tablet p.o. twice daily. ALLERGIES: No known drug allergies. SOCIAL HISTORY: The patient is . The patient denies tobacco or alcohol use. PHYSICAL EXAMINATION: VITAL SIGNS: Temperature 98.6, respirations 19, pulse 44, and blood pressure 130/63. GENERAL: The patient well-developed, well-nourished, female, no apparent distress. HEENT: Eyes, pupils are equal and responsive to light and accommodation. Extraocular movements are intact. NECK: Supple without lymphadenopathy. CHEST: Lungs are clear to auscultation bilaterally without wheezes or rales. CARDIOVASCULAR: Bradycardia with regular rate. S1 and S2 are normal without murmurs, rubs, or gallops. ABDOMEN: Soft, nontender, and nondistended. Positive bowel sounds. No evidence of hepatosplenomegaly. Currently, no rebound or guarding noted. EXTREMITIES: Negative for clubbing, cyanosis, or edema. RECTAL: Refused. GENITAL: Refused. NEUROLOGIC: Cranial nerves II through XII are grossly intact without focal deficits. Motor strength is 5/5 bilaterally. Deep tendon reflexes are 2+ plantar. DIAGNOSTIC AND LABORATORY DATA: An EKG demonstrated sinus bradycardia at approximately 45 beats per minute. There was a right bundle-branch block noted. There was a left anterior bifascicular block noted. WBC 8.8, hemoglobin 9.7, hematocrit 30.1, and platelets 318,000. Sodium 139, potassium 4.5, chloride 105, CO2 27, BUN 24, creatinine 1.3, and glucose 95. ASSESSMENT: This is a 72-year-old female. 1. Bradycardia. 2. Bifascicular block. 3. Hypertension. 4. Diabetes type 2. TREATMENT: 1. Bradycardia/bifascicular block. A Cardiology consultation is pending with Dr. Juvenal Argueta. An EP Cardiology consultation is pending with Dr. Ilene Ji. We will follow recommendation of Cardiology. 2. Diabetes type 2. Continue Janumet as above. 3. Hypertension. Continue losartan and hydrochlorothiazide as above. Dionicio Romero M.D. DR: GREGG JOB#: [id number] CC:
--- NOTE | 2017-03-14 17:58 | Internal Med Progress Note ---
Subjective Date of Service: Mar 14, 2017 Physician Name Mony Quintero Attending Physician Alonso Reddy MD Current Medications Medications (Trade) Dose Ordered Sig/Harsh Route PRN Reason Start Time Stop Time Status Last Admin Dose Admin Acetaminophen (Tylenol) 650 mg Q6H PRN ORAL Mild Pain/Temp > 100.5 03/14/17 08:45 04/13/17 08:44 Acetaminophen/ Codeine Phosphate (Tylenol #3) 1 tab Q6H PRN ORAL MOD-SEVERE PAIN 03/14/17 08:45 03/21/17 08:44 Al Hydroxide/Mg Hydroxide (Mylanta II) 30 ml Q6H PRN ORAL dyspepsia 03/12/17 19:30 04/11/17 19:29 Allopurinol (Allopurinol) 300 mg DAILY ORAL 03/13/17 09:00 04/12/17 08:59 03/14/17 10:30 Budesonide/ Formoterol Fumarate (Symbicort 160/ 4.5) 2 puff BIDRT INH 03/13/17 22:00 04/12/17 21:59 03/14/17 10:00 Cefazolin Sodium 1 gm/Sodium Chloride 55 ml @ 110 mls/hr Q8H IVPB 03/14/17 15:00 03/21/17 14:59 03/14/17 15:00 Dextrose (Dextrose 50%) STAT PRN IV Hypoglycemia 03/12/17 19:30 04/11/17 19:29 Heparin Sodium (Porcine) (Heparin 5000 units/ml) 5,000 units EVERY 12 HOURS SUBQ 03/12/17 21:15 04/11/17 21:14 03/14/17 10:30 Insulin Aspart (NovoLOG) BEFORE MEALS AND HS SUBQ 03/12/17 21:15 04/11/17 21:14 03/14/17 16:18 Lorazepam (Ativan 2mg/ml 1ml) 0.5 mg Q4H PRN IV For Anxiety 03/12/17 19:30 03/19/17 19:29 Losartan Potassium (Cozaar) 50 mg DAILY ORAL 03/13/17 09:00 04/12/17 08:59 03/14/17 10:30 Morphine Sulfate (Morphine Sulfate) 2 mg Q4H PRN IVP For Pain 4-6 03/12/17 19:30 03/19/17 19:29 03/13/17 04:36 Morphine Sulfate (Morphine Sulfate) 4 mg Q4H PRN IVP For Pain 7-10 03/12/17 19:30 03/19/17 19:29 Ondansetron HCl (Zofran) 4 mg Q6H PRN IVP Nausea & Vomiting 03/12/17 19:30 04/11/17 19:29 Polyethylene Glycol (Miralax) 17 gm HSPRN PRN ORAL Constipation 03/12/17 19:30 04/11/17 19:29 Zolpidem Tartrate (Ambien) 5 mg HSPRN PRN ORAL Insomnia 03/12/17 19:30 03/19/17 19:29 Allergies: Coded Allergies: No Known Allergies (Unverified , 07/18/12) ROS Limited/Unobtainable: No Constitutional: Reports: no symptoms HEENT: Reports: no symptoms Cardiovascular: Reports: no symptoms Respiratory: Reports: no symptoms Gastrointestinal/Abdominal: Reports: no symptoms Genitourinary: Reports: no symptoms Neurologic/Psychiatric: Reports: no symptoms Subjective 72 YO F admitted with chest pain and bradycardia. Cover for Int Med - Dr Reddy. DAPHNE. S/P permanent pacemaker implant today 03/14/17 Objective Last Vital Signs Date Time Temp Pulse Resp B/P (MAP) Pulse Ox O2 Delivery O2 Flow Rate FiO2 03/14/17 12:00 97.3 62 18 142/68 96 Nasal Cannula 3.0 03/14/17 10:44 21 General Appearance: WD/WN, no apparent distress, alert EENT: PERRL/EOMI, normal ENT inspection, TMs normal Neck: non-tender, normal alignment, supple Cardiovascular: normal peripheral pulses, regular rhythm, no gallop/murmur, no JVD, bradycardia Respiratory/Chest: chest wall non-tender, lungs clear, normal breath sounds, no respiratory distress, no accessory muscle use Abdomen: normal bowel sounds, non tender, soft, no organomegaly, no mass Extremities: normal range of motion, non-tender 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, no motor/sensory deficits Skin: normal pigmentation, warm/dry Laboratory Tests Test 03/14/17 04:40 White Blood Count 7.5 K/UL (4.8-10.8) Red Blood Count 3.36 M/UL (4.20-5.40) L Hemoglobin 9.2 G/DL (12.0-16.0) L Hematocrit 28.0 % (37.0-47.0) L Mean Corpuscular Volume 83 FL (80-99) Mean Corpuscular Hemoglobin 27.5 PG (27.0-31.0) Mean Corpuscular Hemoglobin Concent 33.0 G/DL (32.0-36.0) Red Cell Distribution Width 13.2 % (11.6-14.8) Platelet Count 280 K/UL (150-450) Mean Platelet Volume 6.1 FL (6.5-10.1) L Neutrophils (%) (Auto) 61.5 % (45.0-75.0) Lymphocytes (%) (Auto) 25.6 % (20.0-45.0) Monocytes (%) (Auto) 7.2 % (1.0-10.0) Eosinophils (%) (Auto) 5.0 % (0.0-3.0) H Basophils (%) (Auto) 0.8 % (0.0-2.0) Sodium Level 141 MMOL/L (136-145) Potassium Level 4.1 MMOL/L (3.5-5.1) Chloride Level 106 MMOL/L (98-107) Carbon Dioxide Level 27 MMOL/L (21-32) Anion Gap 9 mmol/L (5-15) Blood Urea Nitrogen 22 mg/dL (7-18) H Creatinine 1.4 MG/DL (0.55-1.30) H Estimat Glomerular Filtration Rate mL/min (>60) Glucose Level 111 MG/DL (74-106) H Calcium Level 8.8 MG/DL (8.5-10.1) Troponin I 0.000 ng/mL (0.000-0.056) Intake and Output 03/13/17 03/14/17 19:00 07:00 Intake Total 1618.75 ml 1150 ml Output Total 800 ml 1000 ml Balance 818.75 ml 150 ml Intake Oral 720 ml 300 ml IV Total 898.75 ml 850 ml Output Urine Total 800 ml 1000 ml Assessment/Plan Problem List: (1) Bradycardia Assessment & Plan: Due to 2nd deg AV block. S/P pacemaker implant 03/14/17. See Cardiology note. (2) Hypertension (3) Chest pain with moderate risk of acute coronary syndrome (4) Second degree heart block (5) Diabetes mellitus Assessment & Plan: Continue novolog sliding scale. Status: progressing MONY QUINTERO Mar 14, 2017 17:58
--- NOTE | 2017-03-14 20:30 | Operative Note - Dictated ---
DATE OF OPERATION: 03/14/2017 PROCEDURE: Permanent pacemaker implant. INDICATION: Second-degree AV block. CLINICAL HISTORY: The patient is a 72-year-old woman with 2:1 second-degree AV block, heart rate is in the 30s, and symptoms of congestive heart failure. The implanted device is a [employer], unsure the MRI [id number] number [id number] atrial lead is [employer] Assurity MRI 2272, serial number is [id number] atrially with [employer] Tendril 2088 mL, serial number [id number] and in the ventricle it is a Tendril [employer] 2088 mL, serial number [id number]. Pacing and sensing in the atrium, sensing is 2.5 millivolts and pacing 1 volt at 0.4 milliseconds at the impedance 390 ohms in the ventricle sensing 6 millivolts, pacing threshold 0.5 volts at 0.4 milliseconds, and lead impedance 650 ohms. ANESTHESIA: Local and intravenous sedation. DESCRIPTION OF PROCEDURE: The patient was brought to the operating room, received sedation as per the anesthesiologist, Dr. Ochoa. The left chest was sterilely prepped and draped in a usual manner. The skin and underlying soft tissues over the left deltopectoral groove were infiltrated with 1% Xylocaine local anesthetic. An incision was made in the left deltopectoral groove of about 3 cm and this was carried down to the prepectoral fascia using blunt and Bovie dissection. The left cephalic vein was isolated. Proximal loop and distal tie of silk suture were placed. The vein was incised and two guidewires were advanced under fluoroscopy into the low right atrium. Over one of the guidewires, a 6-Russian introducer was placed. The ventricular lead was positioned in the right ventricular apex under fluoroscopy. The screw was advanced under fluoroscopy. The above pacing and sensing thresholds were obtained. There was no diaphragmatic stimulation with pacing at 10 volts. The introducer was removed and the lead was secured with two nonabsorbable sutures via the suture sleeves. Next, the atrial lead was positioned through a 6-Russian introducer that was placed over the remaining guidewire. After the guidewire and dilator were removed, the atrial lead was positioned in the right atrial appendage. Two lead repositionings were used to obtain the position, which resulted in the above pacing and sensing thresholds. The screw was advanced under fluoroscopy after pacing and sensing thresholds were checked and no diaphragmatic stimulation noted with pacing at 10 volts. This lead was also secured with two nonabsorbable sutures via the suture sleeves. The subcutaneous pocket was created using blunt and Bovie dissection. The pocket was flushed with an antibiotic solution. The pacemaker was brought to the field. Atrial and ventricle leads were attached. The setscrews were tightened and checked. The leads and generator were placed in the subcutaneous pocket with the excess lead coiled beneath the generator. The incision was then closed in 3 layers with 2-0 and 4-0 Monocryl absorbable suture. A sterile dressing was applied. The patient tolerated the procedure well and there were no intraprocedural complications. Ilene Ji M.D. DR: USMAN JOB#: [id number] CC:
[2017-03-15] VITALS (11 sets, daily range): BP systolic 122–149; BP diastolic 73–86
[2017-03-15] MEDS ORDERED: ceFAZolin sod 2 GM in NS 55 ML IVP ONE (06:00)
[2017-03-15] MEDS: NovoLOG Insulin Flexpen SUBQ SCH ×4 (06:30→23:37)
[2017-03-15] MEDS ORDERED: Vancomycin 1gm inj IVPB ONE (06:43)
[2017-03-15] MEDS ORDERED: Lidocaine 1% Plain 30 ml INJ ONE (06:43)
[2017-03-15] MEDS ORDERED: Bupivacaine 0.25% Inj 30ml INJ ONE (06:44)
[2017-03-15] MEDS ORDERED: Bacitracin 50000 Units Vial ONE (06:44)
[2017-03-15] MEDS ORDERED: Isovue-M 300 15ml INJ ONE (06:57)
[2017-03-15] MEDS ORDERED: Alfentanil 2ml Inj ONE (07:00)
[2017-03-15] MEDS ORDERED: Propofol 200mg/20ml IV ONE (07:00)
[2017-03-15] MEDS ORDERED: Dexamethasone 4mg/ml vial ONE (07:00)
[2017-03-15] MEDS: ceFAZolin sod 1 GM in NS 55 ML IVPB SCH ×3 (07:00→23:34)
[2017-03-15] MEDS ORDERED: LR 1000ml ONE (07:00)
[2017-03-15] MEDS ORDERED: Midazolam 2mg/2ml Inj ONE (07:00)
[2017-03-15 07:52] LABS: BASOPHILS % (AUTO) 0.8 % (0.0-2.0); HEMATOCRIT 28.4 % (37.0-47.0); HEMOGLOBIN 9.3 G/DL (12.0-16.0); LYMPHOCYTES % (AUTO) 19.9 % (20.0-45.0); MEAN CORPUSCULAR VOLUME 82 FL (80-99); MONOCYTES % (AUTO) 8.3 % (1.0-10.0); NEUTROPHILS % (AUTO) 65.1 % (45.0-75.0); PLATELET COUNT 228 K/UL (150-450); RED BLOOD COUNT 3.46 M/UL (4.20-5.40); RED CELL DISTRIBUTION WIDTH 12.9 % (11.6-14.8); WHITE BLOOD COUNT 7.6 K/UL (4.8-10.8)
[2017-03-15 08:21] LABS: CHLORIDE 108 MMOL/L (98-107); POTASSIUM 4.2 MMOL/L (3.5-5.1); SODIUM 139 MMOL/L (136-145)
[2017-03-15] MEDS: Bacitracin 50000 Units Vial ONE (08:21)
[2017-03-15 08:22] LABS: ANION GAP 6 mmol/L (5-15); BLOOD UREA NITROGEN 18 mg/dL (7-18); CALCIUM 8.9 MG/DL (8.5-10.1); CARBON DIOXIDE 26 MMOL/L (21-32); CREATININE 1.1 MG/DL (0.55-1.30)
[2017-03-15] MEDS: Lidocaine 1% Plain 30 ml INJ ONE (08:22)
[2017-03-15] MEDS: Bupivacaine 0.25% Inj 30ml INJ ONE (08:23)
[2017-03-15] MEDS ORDERED: NS Irrig 1000ml IRRIG ONE (08:23)
--- NOTE | 2017-03-15 08:26 | Immediate Post-Op Evaluation ---
Immediate Post-Op Evalulation Immediate Post-Op Evalulation Procedure: Redo Pacemaker Leads Date of Evaluation: Mar 15, 2017 Time of Evaluation: 09:03 IV Fluids: 300 Blood Products: 0 Estimated Blood Loss: 7 Urinary Output: 0 Blood Pressure Systolic: 130 Blood Pressure Diastolic: 82 Pulse Rate: 89 Respiratory Rate: 16 O2 Sat by Pulse Oximetry: 100 Temperature (Fahrenheit): 97.5 Pain Score (1-10): 1 Nausea: No Vomiting: No Complications 0 Patient Status: awake, reacts, patent, extubated, none Hydration Status: adequate Dru Grams Ancef IV Given Within 1 Hr of Incision: Yes Time Given: 07:46 Tobin Ochoa MD Mar 15, 2017 08:26
--- NOTE | 2017-03-15 08:48 | Operative Note - PDOC ---
Operative Note Operative Note Date of Operation/Procedure: Mar 15, 2017 Pre-op Diagnosis: 2nd deg av block 2: 1 conduction Procedure: permanent pacemaker Post-op Diagnosis: second deg 2:1 av block Post-op Diagnosis: same as pre-op Anesthesia: local, MAC Specimen: none Complications: none Condition: stable Estimated Blood Loss: minimal Drains: none Implant(s) used?: Yes Indications for Procedure lead dislodgement Description of Procedure lead repositioning - see dictation TERRY BLUE Mar 15, 2017 08:48
[2017-03-15] MEDS: Heparin 5000 units/ml inj SUBQ SCH ×2 (09:00→23:36)
--- NOTE | 2017-03-15 09:00 | 48 Hour Post Anesthesia Eval ---
Post Anesthesia Evaluation Procedure: Redo Pacemaker Leads Date of Evaluation: Mar 15, 2017 Time of Evaluation: 11:08 Blood Pressure Systolic: 142 0: 78 Pulse Rate: 82 Respiratory Rate: 16 Temperature (Fahrenheit): 98.2 O2 Sat by Pulse Oximetry: 100 Airway: patent Nausea: No Vomiting: No Pain Intensity: 2 Hydration Status: adequate Cardiopulmonary Status: Stable Mental Status/LOC: patient returned to baseline Follow-up Care/Observations: 0 Post-Anesthesia Complications: 0 Follow-up care needed: N/A Tobin Ochoa MD Mar 15, 2017 09:00
--- NOTE | 2017-03-15 09:32 | Pulmonology Progress Note ---
Assessment/Plan Assessment/Plan ASSESSMENT Second degree heart block with 2 to 1 conduction with persistent bradycardia RBBB left anterior fascicular block s/p permanent pacemaker placement /2 s/p lead repositioning 2/3 DM HTN Anemia PLAN OF CARE DAPHNE Serial troponin x 2 negative, ECG no acute ischemic changes cardio follows s/p pacemaker implantation 2/2 empiric abx pain management, pain specialist follows prior per cardio pacemaker was not capturing to OR this am s/p repositioning of leads CTA no PE O2 HHN prn DVT prophylaxis PT/OT monitor counts, transfuse prn, remains at baseline case discussed and evaluated by supervising physician Subjective Allergies: Coded Allergies: No Known Allergies (Unverified , 07/18/12) Subjective s/p repositioning of leads this am from pacemaker implanted 03/14/17 denies cehst pain SOB intermittent pain at the site of insertion, controlled with analgesics Objective Last 24 Hour Vital Signs Date Time Temp Pulse Resp B/P (MAP) Pulse Ox O2 Delivery O2 Flow Rate FiO2 03/15/17 09:22 98.0 77 20 132/80 99 Nasal Cannula 3.0 03/15/17 09:15 75 20 137/75 99 Nasal Cannula 3.0 03/15/17 09:02 78 20 138/79 99 Simple Mask 8.0 03/15/17 09:00 82 16 100 03/15/17 08:59 89 16 100 03/15/17 08:57 79 20 134/79 99 Simple Mask 8.0 03/15/17 08:52 97.5 84 20 130/82 99 Simple Mask 8.0 03/15/17 04:00 60 03/15/17 04:00 97.7 63 20 136/73 100 Nasal Cannula 3.0 03/15/17 00:00 98.1 62 20 149/86 99 Nasal Cannula 3.0 03/14/17 23:51 59 03/14/17 22:51 65 20 95 Room Air 21 03/14/17 22:51 65 20 95 Room Air 21 03/14/17 20:00 97.9 60 20 145/71 100 Nasal Cannula 3.0 03/14/17 20:00 61 03/14/17 16:00 59 03/14/17 16:00 97.9 54 20 148/73 92 Nasal Cannula 3.0 03/14/17 12:00 97.3 62 18 142/68 96 Nasal Cannula 3.0 03/14/17 12:00 61 03/14/17 10:44 61 20 95 Room Air 21 03/14/17 10:44 61 20 95 Room Air 21 03/14/17 10:30 151/84 03/14/17 10:02 97.7 71 17 151/84 99 Nasal Cannula 3.0 03/14/17 09:55 97.8 57 16 138/71 100 Nasal Cannula 3.0 03/14/17 09:40 60 14 149/72 98 Nasal Cannula 3.0 Intake and Output 03/14/17 03/15/17 19:00 07:00 Intake Total 1355 ml 125 ml Output Total 1270 ml 1000 ml Balance 85 ml -875 ml Intake Oral 600 ml IV Total 755 ml 125 ml Output Urine Total 1250 ml 1000 ml Estimated Blood Loss 20 ml General Appearance: no acute distress, other - A/A/O x 4 morbidly obese AA female in NAD HEENT: normocephalic, atraumatic, anicteric Respiratory/Chest: lungs clear, no respiratory distress, other - elft chest pacemaker, area TTP, site clean, Cardiovascular: normal rate, regular rhythm Abdomen: normal bowel sounds, soft, non tender - obese Extremities: no edema, pedal pulses normal Neurologic/Psychiatric: alert, oriented x 3, responsive Musculoskeletal: normal muscle bulk Laboratory Tests 03/15/17 06:00: White Blood Count 7.6, Red Blood Count 3.46L, Hemoglobin 9.3L, Hematocrit 28.4L , Mean Corpuscular Volume 82, Mean Corpuscular Hemoglobin 27.0, Mean Corpuscular Hemoglobin Concent 32.8, Red Cell Distribution Width 12.9, Platelet Count 228, Mean Platelet Volume 5.9L, Neutrophils (%) (Auto) 65.1, Lymphocytes ( %) (Auto) 19.9L, Monocytes (%) (Auto) 8.3, Eosinophils (%) (Auto) 6.0H, Basophils (%) (Auto) 0.8, Sodium Level 139, Potassium Level 4.2, Chloride Level 108H, Carbon Dioxide Level 26, Anion Gap 6, Blood Urea Nitrogen 18, Creatinine 1.1, Estimat Glomerular Filtration Rate , Glucose Level 107H, Calcium Level 8.9 Current Medications Medications (Trade) Dose Ordered Sig/Harsh Route PRN Reason Start Time Stop Time Status Last Admin Dose Admin Acetaminophen (Tylenol) 650 mg Q6H PRN ORAL Mild Pain/Temp > 100.5 03/14/17 08:45 04/13/17 08:44 Acetaminophen/ Codeine Phosphate (Tylenol #3) 1 tab Q6H PRN ORAL MOD-SEVERE PAIN 03/14/17 08:45 03/21/17 08:44 Al Hydroxide/Mg Hydroxide (Mylanta II) 30 ml Q6H PRN ORAL dyspepsia 03/12/17 19:30 04/11/17 19:29 Allopurinol (Allopurinol) 300 mg DAILY ORAL 03/13/17 09:00 04/12/17 08:59 03/14/17 10:30 Budesonide/ Formoterol Fumarate (Symbicort 160/ 4.5) 2 puff BIDRT INH 03/13/17 22:00 04/12/17 21:59 03/14/17 22:51 Cefazolin Sodium 1 gm/Sodium Chloride 55 ml @ 110 mls/hr Q8H IVPB 03/14/17 15:00 03/21/17 14:59 03/14/17 22:15 Dextrose (Dextrose 50%) STAT PRN IV Hypoglycemia 03/12/17 19:30 04/11/17 19:29 Heparin Sodium (Porcine) (Heparin 5000 units/ml) 5,000 units EVERY 12 HOURS SUBQ 03/12/17 21:15 04/11/17 21:14 03/14/17 10:30 Insulin Aspart (NovoLOG) BEFORE MEALS AND HS SUBQ 03/12/17 21:15 04/11/17 21:14 03/14/17 22:13 Lorazepam (Ativan 2mg/ml 1ml) 0.5 mg Q4H PRN IV For Anxiety 03/12/17 19:30 03/19/17 19:29 Losartan Potassium (Cozaar) 50 mg DAILY ORAL 03/13/17 09:00 04/12/17 08:59 03/14/17 10:30 Morphine Sulfate (Morphine Sulfate) 2 mg Q4H PRN IVP For Pain 4-6 03/12/17 19:30 03/19/17 19:29 03/13/17 04:36 Morphine Sulfate (Morphine Sulfate) 4 mg Q4H PRN IVP For Pain 7-10 03/12/17 19:30 03/19/17 19:29 Ondansetron HCl (Zofran) 4 mg Q6H PRN IVP Nausea & Vomiting 03/12/17 19:30 04/11/17 19:29 Polyethylene Glycol (Miralax) 17 gm HSPRN PRN ORAL Constipation 03/12/17 19:30 04/11/17 19:29 Sodium Chloride 1,000 ml @ 70 mls/hr [id number] IV 03/15/17 06:00 03/15/17 20:17 03/15/17 06:02 Zolpidem Tartrate (Ambien) 5 mg HSPRN PRN ORAL Insomnia 03/12/17 19:30 03/19/17 19:29 [facility] Menjivaroverlook medical centerValeria Hannah NP Mar 15, 2017 09:32
[2017-03-15] MEDS: Losartan 50mg tab ORAL SCH (10:13)
[2017-03-15 10:15] LABS: ANION GAP 8 mmol/L (5-15); BLOOD UREA NITROGEN 17 mg/dL (7-18); CARBON DIOXIDE 24 MMOL/L (21-32); CHLORIDE 108 MMOL/L (98-107); CREATININE 1.1 MG/DL (0.55-1.30); POTASSIUM 4.5 MMOL/L (3.5-5.1); SODIUM 140 MMOL/L (136-145)
--- NOTE | 2017-03-15 11:14 | Diagnostic Imaging Report ---
Indication: Status post recent pacemaker placement Technique: One view of the chest Comparison: 03/14/2017 Findings: Altered orientation of powerpack and pacemaker wires of left chest pacemaker presumably indicates interim revision. No gross pneumothorax. The heart is enlarged. There is borderline interstitial congestion, although this may be an artifact or vascular crowding due to poor inspiration. Impression: Apparent interval revision pacemaker. No radiographic evidence complication Findings as noted
--- NOTE | 2017-03-15 13:43 | Internal Med Progress Note ---
Subjective Date of Service: Mar 15, 2017 Physician Name Mony Quintero Attending Physician Alonso Reddy MD Current Medications Medications (Trade) Dose Ordered Sig/Harsh Route PRN Reason Start Time Stop Time Status Last Admin Dose Admin Acetaminophen (Tylenol) 650 mg Q6H PRN ORAL Mild Pain/Temp > 100.5 03/14/17 08:45 04/13/17 08:44 Acetaminophen/ Codeine Phosphate (Tylenol #3) 1 tab Q6H PRN ORAL MOD-SEVERE PAIN 03/14/17 08:45 03/21/17 08:44 Al Hydroxide/Mg Hydroxide (Mylanta II) 30 ml Q6H PRN ORAL dyspepsia 03/12/17 19:30 04/11/17 19:29 Allopurinol (Allopurinol) 300 mg DAILY ORAL 03/13/17 09:00 04/12/17 08:59 03/15/17 10:13 Budesonide/ Formoterol Fumarate (Symbicort 160/ 4.5) 2 puff BIDRT INH 03/13/17 22:00 04/12/17 21:59 03/15/17 11:34 Cefazolin Sodium 1 gm/Sodium Chloride 55 ml @ 110 mls/hr Q8H IVPB 03/14/17 15:00 03/21/17 14:59 03/14/17 22:15 Dextrose (Dextrose 50%) STAT PRN IV Hypoglycemia 03/12/17 19:30 04/11/17 19:29 Heparin Sodium (Porcine) (Heparin 5000 units/ml) 5,000 units EVERY 12 HOURS SUBQ 03/12/17 21:15 04/11/17 21:14 03/14/17 10:30 Insulin Aspart (NovoLOG) BEFORE MEALS AND HS SUBQ 03/12/17 21:15 04/11/17 21:14 03/15/17 12:15 Lorazepam (Ativan 2mg/ml 1ml) 0.5 mg Q4H PRN IV For Anxiety 03/12/17 19:30 03/19/17 19:29 Losartan Potassium (Cozaar) 50 mg DAILY ORAL 03/13/17 09:00 04/12/17 08:59 03/15/17 10:13 Morphine Sulfate (Morphine Sulfate) 2 mg Q4H PRN IVP For Pain 4-6 03/12/17 19:30 03/19/17 19:29 03/13/17 04:36 Morphine Sulfate (Morphine Sulfate) 4 mg Q4H PRN IVP For Pain 7-10 03/12/17 19:30 03/19/17 19:29 Ondansetron HCl (Zofran) 4 mg Q6H PRN IVP Nausea & Vomiting 03/12/17 19:30 04/11/17 19:29 Polyethylene Glycol (Miralax) 17 gm HSPRN PRN ORAL Constipation 03/12/17 19:30 04/11/17 19:29 Zolpidem Tartrate (Ambien) 5 mg HSPRN PRN ORAL Insomnia 03/12/17 19:30 03/19/17 19:29 Allergies: Coded Allergies: No Known Allergies (Unverified , 07/18/12) ROS Limited/Unobtainable: No Constitutional: Reports: no symptoms HEENT: Reports: no symptoms Cardiovascular: Reports: no symptoms Respiratory: Reports: no symptoms Gastrointestinal/Abdominal: Reports: no symptoms Genitourinary: Reports: no symptoms Neurologic/Psychiatric: Reports: no symptoms Subjective 72 YO F admitted with chest pain and bradycardia. Cover for Int Med - Dr Reddy. DAPHNE. S/P permanent pacemaker implant 03/14/17; 2nd surgery 03/15/17 - see cardiology note. Objective Last Vital Signs Date Time Temp Pulse Resp B/P (MAP) Pulse Ox O2 Delivery O2 Flow Rate FiO2 03/15/17 12:00 96.8 85 22 145/75 99 Nasal Cannula 3.0 03/15/17 11:36 21 Laboratory Tests Test 03/15/17 06:00 03/15/17 09:45 White Blood Count 7.6 K/UL (4.8-10.8) Red Blood Count 3.46 M/UL (4.20-5.40) L Hemoglobin 9.3 G/DL (12.0-16.0) L Hematocrit 28.4 % (37.0-47.0) L Mean Corpuscular Volume 82 FL (80-99) Mean Corpuscular Hemoglobin 27.0 PG (27.0-31.0) Mean Corpuscular Hemoglobin Concent 32.8 G/DL (32.0-36.0) Red Cell Distribution Width 12.9 % (11.6-14.8) Platelet Count 228 K/UL (150-450) Mean Platelet Volume 5.9 FL (6.5-10.1) L Neutrophils (%) (Auto) 65.1 % (45.0-75.0) Lymphocytes (%) (Auto) 19.9 % (20.0-45.0) L Monocytes (%) (Auto) 8.3 % (1.0-10.0) Eosinophils (%) (Auto) 6.0 % (0.0-3.0) H Basophils (%) (Auto) 0.8 % (0.0-2.0) Sodium Level 139 MMOL/L (136-145) 140 MMOL/L (136-145) Potassium Level 4.2 MMOL/L (3.5-5.1) 4.5 MMOL/L (3.5-5.1) Chloride Level 108 MMOL/L (98-107) H 108 MMOL/L (98-107) H Carbon Dioxide Level 26 MMOL/L (21-32) 24 MMOL/L (21-32) Anion Gap 6 mmol/L (5-15) 8 mmol/L (5-15) Blood Urea Nitrogen 18 mg/dL (7-18) 17 mg/dL (7-18) Creatinine 1.1 MG/DL (0.55-1.30) 1.1 MG/DL (0.55-1.30) Estimat Glomerular Filtration Rate mL/min (>60) mL/min (>60) Glucose Level 107 MG/DL (74-106) H 114 MG/DL (74-106) H Calcium Level 8.9 MG/DL (8.5-10.1) 9.0 MG/DL (8.5-10.1) Intake and Output 03/14/17 03/15/17 19:00 07:00 Intake Total 1355 ml 125 ml Output Total 1270 ml 1000 ml Balance 85 ml -875 ml Intake Oral 600 ml IV Total 755 ml 125 ml Output Urine Total 1250 ml 1000 ml Estimated Blood Loss 20 ml Objective General Appearance: WD/WN, no apparent distress, alert EENT: PERRL/EOMI, normal ENT inspection, TMs normal Neck: non-tender, normal alignment, supple Cardiovascular: normal peripheral pulses, regular rhythm, no gallop/murmur, no JVD, bradycardia Respiratory/Chest: chest wall non-tender, lungs clear, normal breath sounds, no respiratory distress, no accessory muscle use Abdomen: normal bowel sounds, non tender, soft, no organomegaly, no mass Extremities: normal range of motion, non-tender 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 S/P pacemaker implant 03/14/17; repeat surgery 03/15/17. See Cardiology note. (2) Hypertension (3) Chest pain with moderate risk of acute coronary syndrome (4) Second degree heart block (5) Diabetes mellitus Assessment & Plan: Continue novolog sliding scale. Status: not improved MONY QUINTERO Mar 15, 2017 13:43
[2017-03-15] MEDS ORDERED: ceFAZolin sod 1 GM in D5W 55 ML IVPB SCH (14:00)
[2017-03-15] MEDS ORDERED: Albuterol/Ipratropium 3ml neb HHN PRN (15:00)
--- NOTE | 2017-03-15 18:46 | Cardiac Electrophysiology PN ---
Assessment/Plan Status: stable, progressing Status Narrative Stable, s/p revision/ repositioning of ra, rv pacing leads this am. Appropriate pacing/sensing on telemetry Assessment/Plan Complete iv ancef ( 4 doses) Analgesics prn for post op pain. Activity / wound care instructions given. dc in am if remains stable. Will see for wound check in 1 wk Subjective ROS Limited/Unobtainable: No Subjective Cardiac EP/ Cardiology for Dr. Argueta No c/o chest pain or dyspnea Objective Last 24 Hour Vital Signs Date Time Temp Pulse Resp B/P (MAP) Pulse Ox O2 Delivery O2 Flow Rate FiO2 03/15/17 16:00 97.9 103 21 122/84 98 Nasal Cannula 3.0 03/15/17 12:00 96.8 85 22 145/75 99 Nasal Cannula 3.0 03/15/17 12:00 79 03/15/17 11:36 67 16 96 Room Air 21 03/15/17 11:36 68 16 96 Room Air 21 03/15/17 10:13 136/83 03/15/17 09:49 98.3 76 20 136/83 96 Nasal Cannula 3.0 03/15/17 09:36 78 03/15/17 09:22 98.0 77 20 132/80 99 Nasal Cannula 3.0 03/15/17 09:15 75 20 137/75 99 Nasal Cannula 3.0 03/15/17 09:02 78 20 138/79 99 Simple Mask 8.0 03/15/17 09:00 82 16 100 03/15/17 08:59 89 16 100 03/15/17 08:57 79 20 134/79 99 Simple Mask 8.0 03/15/17 08:52 97.5 84 20 130/82 99 Simple Mask 8.0 03/15/17 04:00 60 03/15/17 04:00 97.7 63 20 136/73 100 Nasal Cannula 3.0 03/15/17 00:00 98.1 62 20 149/86 99 Nasal Cannula 3.0 03/14/17 23:51 59 03/14/17 22:51 65 20 95 Room Air 21 03/14/17 22:51 65 20 95 Room Air 21 03/14/17 20:00 97.9 60 20 145/71 100 Nasal Cannula 3.0 03/14/17 20:00 61 General Appearance: WD/WN, no apparent distress, alert Neck: supple, no JVD Rhythm: NSR Cardiovascular: normal rate, regular rhythm, no gallop/murmur Respiratory/Chest: lungs clear, other - L chest incision site covered w/ dry dsg Abdomen: normal bowel sounds, non tender, soft Extremities: no swelling Intake and Output 03/14/17 03/15/17 19:00 07:00 Intake Total 1355 ml 125 ml Output Total 1270 ml 1000 ml Balance 85 ml -875 ml Intake Oral 600 ml IV Total 755 ml 125 ml Output Urine Total 1250 ml 1000 ml Estimated Blood Loss 20 ml Laboratory Tests Test 03/15/17 06:00 03/15/17 09:45 White Blood Count 7.6 K/UL (4.8-10.8) Red Blood Count 3.46 M/UL (4.20-5.40) L Hemoglobin 9.3 G/DL (12.0-16.0) L Hematocrit 28.4 % (37.0-47.0) L Mean Corpuscular Volume 82 FL (80-99) Mean Corpuscular Hemoglobin 27.0 PG (27.0-31.0) Mean Corpuscular Hemoglobin Concent 32.8 G/DL (32.0-36.0) Red Cell Distribution Width 12.9 % (11.6-14.8) Platelet Count 228 K/UL (150-450) Mean Platelet Volume 5.9 FL (6.5-10.1) L Neutrophils (%) (Auto) 65.1 % (45.0-75.0) Lymphocytes (%) (Auto) 19.9 % (20.0-45.0) L Monocytes (%) (Auto) 8.3 % (1.0-10.0) Eosinophils (%) (Auto) 6.0 % (0.0-3.0) H Basophils (%) (Auto) 0.8 % (0.0-2.0) Sodium Level 139 MMOL/L (136-145) 140 MMOL/L (136-145) Potassium Level 4.2 MMOL/L (3.5-5.1) 4.5 MMOL/L (3.5-5.1) Chloride Level 108 MMOL/L (98-107) H 108 MMOL/L (98-107) H Carbon Dioxide Level 26 MMOL/L (21-32) 24 MMOL/L (21-32) Anion Gap 6 mmol/L (5-15) 8 mmol/L (5-15) Blood Urea Nitrogen 18 mg/dL (7-18) 17 mg/dL (7-18) Creatinine 1.1 MG/DL (0.55-1.30) 1.1 MG/DL (0.55-1.30) Estimat Glomerular Filtration Rate mL/min (>60) mL/min (>60) Glucose Level 107 MG/DL (74-106) H 114 MG/DL (74-106) H Calcium Level 8.9 MG/DL (8.5-10.1) 9.0 MG/DL (8.5-10.1) TERRY BLUE Mar 15, 2017 18:46
[2017-03-16] VITALS: BP 142/78
[2017-03-16 04:00] VITALS: BP 132/80
[2017-03-16 06:14] LABS: BASOPHILS % (AUTO) 0.5 % (0.0-2.0); EOSINOPHILS % (AUTO) 0.8 % (0.0-3.0); HEMATOCRIT 27.1 % (37.0-47.0); HEMOGLOBIN 9.1 G/DL (12.0-16.0); LYMPHOCYTES % (AUTO) 13.5 % (20.0-45.0); MEAN CORPUSCULAR VOLUME 82 FL (80-99); MONOCYTES % (AUTO) 8.4 % (1.0-10.0); NEUTROPHILS % (AUTO) 76.8 % (45.0-75.0); PLATELET COUNT 209 K/UL (150-450); RED BLOOD COUNT 3.31 M/UL (4.20-5.40); RED CELL DISTRIBUTION WIDTH 13.2 % (11.6-14.8); WHITE BLOOD COUNT 11.2 K/UL (4.8-10.8)
[2017-03-16] MEDS: ceFAZolin sod 1 GM in NS 55 ML IVPB SCH ×2 (06:15→15:28)
[2017-03-16] MEDS: NovoLOG Insulin Flexpen SUBQ SCH ×4 (06:20→21:03)
[2017-03-16 06:48] LABS: ANION GAP 4 mmol/L (5-15); BLOOD UREA NITROGEN 23 mg/dL (7-18); CALCIUM 8.7 MG/DL (8.5-10.1); CARBON DIOXIDE 27 MMOL/L (21-32); CHLORIDE 109 MMOL/L (98-107); CREATININE 0.9 MG/DL (0.55-1.30); POTASSIUM 4.6 MMOL/L (3.5-5.1); SODIUM 140 MMOL/L (136-145)
[2017-03-16 08:00] VITALS: BP 118/67
[2017-03-16] MEDS: Losartan 50mg tab ORAL SCH (09:19)
[2017-03-16] MEDS: Heparin 5000 units/ml inj SUBQ SCH ×2 (09:22→21:00)
--- NOTE | 2017-03-16 11:01 | General Progress Note ---
Assessment/Plan Assessment/Plan (1) Left knee pain (2) Left knee OA (3) Gout (4) Chest pain (5) Second degree heart block (6) Congestive heart failure Pt to be continued on Morphine and Tylenol #3 as needed D/w Dr. Bruner and he concurred. Subjective Date patient seen: Mar 16, 2017 Allergies: Coded Allergies: No Known Allergies (Unverified , 07/18/12) Subjective Constitutional: Reports: no symptoms HEENT: Reports: no symptoms Cardiovascular: Reports: palpitations Respiratory: Reports: no symptoms Gastrointestinal/Abdominal: Reports: no symptoms Genitourinary: Reports: no symptoms Neurologic/Psychiatric: Reports: no symptoms Endocrine: Reports: no symptoms Hematologic/Lymphatic: Reports: no symptoms Patient has been in bed and shows no signs of pain or distress. Objective Last 24 Hour Vital Signs Date Time Temp Pulse Resp B/P (MAP) Pulse Ox O2 Delivery O2 Flow Rate FiO2 03/16/17 09:19 118/67 03/16/17 08:00 97.5 84 20 118/67 99 Nasal Cannula 3.0 03/16/17 08:00 72 03/16/17 04:00 98.1 77 20 132/80 99 Nasal Cannula 3.0 03/16/17 04:00 76 03/16/17 00:00 98.1 83 20 142/78 100 Nasal Cannula 3.0 03/16/17 00:00 88 03/15/17 22:55 69 16 96 Room Air 21 03/15/17 22:48 67 16 96 Room Air 21 03/15/17 20:00 97.0 92 20 137/78 97 Nasal Cannula 3.0 03/15/17 16:00 97.9 103 21 122/84 98 Nasal Cannula 3.0 03/15/17 16:00 95 03/15/17 12:00 96.8 85 22 145/75 99 Nasal Cannula 3.0 03/15/17 12:00 79 03/15/17 11:36 67 16 96 Room Air 21 03/15/17 11:36 68 16 96 Room Air 21 Intake and Output 03/15/17 03/16/17 19:00 07:00 Intake Total 775 ml 255 ml Output Total 1007 ml 800 ml Balance -232 ml -545 ml Intake Oral 420 ml 200 ml IV Total 355 ml 55 ml Output Urine Total 1000 ml 800 ml Estimated Blood Loss 7 ml # Bowel Movements 2 Laboratory Tests 03/16/17 04:40: White Blood Count 11.2H, Red Blood Count 3.31L, Hemoglobin 9.1L, Hematocrit 27.1L, Mean Corpuscular Volume 82, Mean Corpuscular Hemoglobin 27.5, Mean Corpuscular Hemoglobin Concent 33.6, Red Cell Distribution Width 13.2, Platelet Count 209, Mean Platelet Volume 6.4L, Neutrophils (%) (Auto) 76.8H, Lymphocytes (%) (Auto) 13.5L, Monocytes (%) (Auto) 8.4, Eosinophils (%) (Auto) 0.8, Basophils (%) (Auto) 0.5, Sodium Level 140, Potassium Level 4.6, Chloride Level 109H, Carbon Dioxide Level 27, Anion Gap 4L, Blood Urea Nitrogen 23H, Creatinine 0.9, Estimat Glomerular Filtration Rate , Glucose Level 118H, Calcium Level 8.7 Height (Feet): 5 Height (Inches): 1.00 Weight (Pounds): 180 Objective General Appearance: no apparent distress, alert EENT: PERRL/EOMI, normal ENT inspection Neck: normal alignment, supple Cardiovascular: pacemaker Respiratory/Chest: lungs clear, normal breath sounds Abdomen: non tender, soft Extremities: non-tender Edema: trace edema Neurologic: alert, oriented x 3 Skin: warm/dry WILLIAMS SANCHEZ Mar 16, 2017 11:01
--- NOTE | 2017-03-16 11:18 | Pulmonology Progress Note ---
Assessment/Plan Assessment/Plan ASSESSMENT Second degree heart block with 2 to 1 conduction with persistent bradycardia RBBB left anterior fascicular block s/p permanent pacemaker placement / s/p lead repositioning 2/3 DM HTN Anemia PLAN OF CARE DAPHNE Serial troponin x 2 negative, ECG no acute ischemic changes cardio follows s/p pacemaker implantation 2/ empiric abx pain management, pain specialist follows s/p repositioning of leads 2/3 since was not capturing now appropriate sensing/pacing CTA no PE O2 HHN prn DVT prophylaxis PT/OT monitor counts, transfuse prn, remains at baseline dc plan discussed with cardio dr Owens she can be dc case discussed and evaluated by supervising physician Subjective Allergies: Coded Allergies: No Known Allergies (Unverified , 07/18/12) Subjective s/p 2/3 repositioning of leads from pacemaker implanted 03/14/17 now appropriate pacing/sensing denies chest pain SOB intermittent pain at the site of insertion, controlled with analgesics Objective Last 24 Hour Vital Signs Date Time Temp Pulse Resp B/P (MAP) Pulse Ox O2 Delivery O2 Flow Rate FiO2 03/16/17 09:19 118/67 03/16/17 08:00 97.5 84 20 118/67 99 Nasal Cannula 3.0 03/16/17 08:00 72 03/16/17 04:00 98.1 77 20 132/80 99 Nasal Cannula 3.0 03/16/17 04:00 76 03/16/17 00:00 98.1 83 20 142/78 100 Nasal Cannula 3.0 03/16/17 00:00 88 03/15/17 22:55 69 16 96 Room Air 21 03/15/17 22:48 67 16 96 Room Air 21 03/15/17 20:00 97.0 92 20 137/78 97 Nasal Cannula 3.0 03/15/17 16:00 97.9 103 21 122/84 98 Nasal Cannula 3.0 03/15/17 16:00 95 03/15/17 12:00 96.8 85 22 145/75 99 Nasal Cannula 3.0 03/15/17 12:00 79 03/15/17 11:36 67 16 96 Room Air 21 03/15/17 11:36 68 16 96 Room Air 21 Intake and Output 03/15/17 03/16/17 19:00 07:00 Intake Total 775 ml 255 ml Output Total 1007 ml 800 ml Balance -232 ml -545 ml Intake Oral 420 ml 200 ml IV Total 355 ml 55 ml Output Urine Total 1000 ml 800 ml Estimated Blood Loss 7 ml # Bowel Movements 2 Objective General Appearance: no acute distress, A/A/O x 4 morbidly obese AA female in NAD HEENT: normocephalic, atraumatic, anicteric Respiratory/Chest: lungs clear, no respiratory distress, left chest pacemaker , area TTP, site clean, Cardiovascular: normal rate, regular rhythm, pacing with SR Abdomen: normal bowel sounds, soft, non tender - obese Extremities: no edema, pedal pulses normal Neurologic/Psychiatric: alert, oriented x 3, responsive Musculoskeletal: normal muscle bulk Laboratory Tests 03/16/17 04:40: White Blood Count 11.2H, Red Blood Count 3.31L, Hemoglobin 9.1L, Hematocrit 27.1L, Mean Corpuscular Volume 82, Mean Corpuscular Hemoglobin 27.5, Mean Corpuscular Hemoglobin Concent 33.6, Red Cell Distribution Width 13.2, Platelet Count 209, Mean Platelet Volume 6.4L, Neutrophils (%) (Auto) 76.8H, Lymphocytes (%) (Auto) 13.5L, Monocytes (%) (Auto) 8.4, Eosinophils (%) (Auto) 0.8, Basophils (%) (Auto) 0.5, Sodium Level 140, Potassium Level 4.6, Chloride Level 109H, Carbon Dioxide Level 27, Anion Gap 4L, Blood Urea Nitrogen 23H, Creatinine 0.9, Estimat Glomerular Filtration Rate , Glucose Level 118H, Calcium Level 8.7 Current Medications Medications (Trade) Dose Ordered Sig/Harsh Route PRN Reason Start Time Stop Time Status Last Admin Dose Admin Acetaminophen (Tylenol) 650 mg Q6H PRN ORAL Mild Pain/Temp > 100.5 03/14/17 08:45 04/13/17 08:44 Acetaminophen/ Codeine Phosphate (Tylenol #3) 1 tab Q6H PRN ORAL MOD-SEVERE PAIN 03/14/17 08:45 03/21/17 08:44 Al Hydroxide/Mg Hydroxide (Mylanta II) 30 ml Q6H PRN ORAL dyspepsia 03/12/17 19:30 04/11/17 19:29 Albuterol/ Ipratropium (Albuterol/ Ipratropium) 3 ml Q4H PRN HHN Shortness of Breath 03/15/17 15:00 03/20/17 14:59 Allopurinol (Allopurinol) 300 mg DAILY ORAL 03/13/17 09:00 04/12/17 08:59 03/16/17 09:19 Budesonide/ Formoterol Fumarate (Symbicort 160/ 4.5) 2 puff BIDRT INH 03/13/17 22:00 04/12/17 21:59 03/15/17 22:46 Cefazolin Sodium 1 gm/Sodium Chloride 55 ml @ 110 mls/hr Q8H IVPB 03/14/17 15:00 03/21/17 14:59 03/16/17 06:15 Dextrose (Dextrose 50%) STAT PRN IV Hypoglycemia 03/12/17 19:30 04/11/17 19:29 Heparin Sodium (Porcine) (Heparin 5000 units/ml) 5,000 units EVERY 12 HOURS SUBQ 03/12/17 21:15 04/11/17 21:14 03/16/17 09:22 Insulin Aspart (NovoLOG) BEFORE MEALS AND HS SUBQ 03/12/17 21:15 04/11/17 21:14 03/16/17 06:20 Lorazepam (Ativan 2mg/ml 1ml) 0.5 mg Q4H PRN IV For Anxiety 03/12/17 19:30 03/19/17 19:29 Losartan Potassium (Cozaar) 50 mg DAILY ORAL 03/13/17 09:00 04/12/17 08:59 03/16/17 09:19 Morphine Sulfate (Morphine Sulfate) 2 mg Q4H PRN IVP For Pain 4-6 03/12/17 19:30 03/19/17 19:29 03/13/17 04:36 Morphine Sulfate (Morphine Sulfate) 4 mg Q4H PRN IVP For Pain 7-10 03/12/17 19:30 03/19/17 19:29 Ondansetron HCl (Zofran) 4 mg Q6H PRN IVP Nausea & Vomiting 03/12/17 19:30 04/11/17 19:29 Polyethylene Glycol (Miralax) 17 gm HSPRN PRN ORAL Constipation 03/12/17 19:30 04/11/17 19:29 Zolpidem Tartrate (Ambien) 5 mg HSPRN PRN ORAL Insomnia 03/12/17 19:30 03/19/17 19:29 Negrito (Sofiajeferson)Valeria NP Mar 16, 2017 11:18
[2017-03-16 11:55] VITALS: BP 124/65
--- NOTE | 2017-03-16 15:16 | Internal Med Progress Note ---
Subjective Date of Service: Mar 16, 2017 Physician Name Mony Quintero Attending Physician Alonso Reddy MD Current Medications Medications (Trade) Dose Ordered Sig/Harsh Route PRN Reason Start Time Stop Time Status Last Admin Dose Admin Acetaminophen (Tylenol) 650 mg Q6H PRN ORAL Mild Pain/Temp > 100.5 03/14/17 08:45 04/13/17 08:44 Acetaminophen/ Codeine Phosphate (Tylenol #3) 1 tab Q6H PRN ORAL MOD-SEVERE PAIN 03/14/17 08:45 03/21/17 08:44 Al Hydroxide/Mg Hydroxide (Mylanta II) 30 ml Q6H PRN ORAL dyspepsia 03/12/17 19:30 04/11/17 19:29 Albuterol/ Ipratropium (Albuterol/ Ipratropium) 3 ml Q4H PRN HHN Shortness of Breath 03/15/17 15:00 03/20/17 14:59 Allopurinol (Allopurinol) 300 mg DAILY ORAL 03/13/17 09:00 04/12/17 08:59 03/16/17 09:19 Budesonide/ Formoterol Fumarate (Symbicort 160/ 4.5) 2 puff BIDRT INH 03/13/17 22:00 04/12/17 21:59 03/16/17 11:59 Cefazolin Sodium 1 gm/Sodium Chloride 55 ml @ 110 mls/hr Q8H IVPB 03/14/17 15:00 03/21/17 14:59 03/16/17 06:15 Dextrose (Dextrose 50%) STAT PRN IV Hypoglycemia 03/12/17 19:30 04/11/17 19:29 Heparin Sodium (Porcine) (Heparin 5000 units/ml) 5,000 units EVERY 12 HOURS SUBQ 03/12/17 21:15 04/11/17 21:14 03/16/17 09:22 Insulin Aspart (NovoLOG) BEFORE MEALS AND HS SUBQ 03/12/17 21:15 04/11/17 21:14 03/16/17 11:51 Lorazepam (Ativan 2mg/ml 1ml) 0.5 mg Q4H PRN IV For Anxiety 03/12/17 19:30 03/19/17 19:29 Losartan Potassium (Cozaar) 50 mg DAILY ORAL 03/13/17 09:00 04/12/17 08:59 03/16/17 09:19 Morphine Sulfate (Morphine Sulfate) 2 mg Q4H PRN IVP For Pain 4-6 03/12/17 19:30 03/19/17 19:29 03/13/17 04:36 Morphine Sulfate (Morphine Sulfate) 4 mg Q4H PRN IVP For Pain 7-10 03/12/17 19:30 03/19/17 19:29 Ondansetron HCl (Zofran) 4 mg Q6H PRN IVP Nausea & Vomiting 03/12/17 19:30 04/11/17 19:29 Polyethylene Glycol (Miralax) 17 gm HSPRN PRN ORAL Constipation 03/12/17 19:30 04/11/17 19:29 Zolpidem Tartrate (Ambien) 5 mg HSPRN PRN ORAL Insomnia 03/12/17 19:30 03/19/17 19:29 Allergies: Coded Allergies: No Known Allergies (Unverified , 07/18/12) ROS Limited/Unobtainable: No Constitutional: Reports: no symptoms HEENT: Reports: no symptoms Cardiovascular: Reports: no symptoms Respiratory: Reports: no symptoms Gastrointestinal/Abdominal: Reports: no symptoms Genitourinary: Reports: no symptoms Neurologic/Psychiatric: Reports: no symptoms Subjective 72 YO F admitted with chest pain and bradycardia. Cover for Int Med - Dr Reddy. DAPHNE. S/P permanent pacemaker implant 03/14/17; 2nd surgery for lead placement 03/15/17 - see cardiology note. Objective Last Vital Signs Date Time Temp Pulse Resp B/P (MAP) Pulse Ox O2 Delivery O2 Flow Rate FiO2 03/16/17 12:00 84 03/16/17 11:55 97.9 20 124/65 100 Nasal Cannula 2.0 03/16/17 11:30 28 Laboratory Tests Test 03/16/17 04:40 White Blood Count 11.2 K/UL (4.8-10.8) H Red Blood Count 3.31 M/UL (4.20-5.40) L Hemoglobin 9.1 G/DL (12.0-16.0) L Hematocrit 27.1 % (37.0-47.0) L Mean Corpuscular Volume 82 FL (80-99) Mean Corpuscular Hemoglobin 27.5 PG (27.0-31.0) Mean Corpuscular Hemoglobin Concent 33.6 G/DL (32.0-36.0) Red Cell Distribution Width 13.2 % (11.6-14.8) Platelet Count 209 K/UL (150-450) Mean Platelet Volume 6.4 FL (6.5-10.1) L Neutrophils (%) (Auto) 76.8 % (45.0-75.0) H Lymphocytes (%) (Auto) 13.5 % (20.0-45.0) L Monocytes (%) (Auto) 8.4 % (1.0-10.0) Eosinophils (%) (Auto) 0.8 % (0.0-3.0) Basophils (%) (Auto) 0.5 % (0.0-2.0) Sodium Level 140 MMOL/L (136-145) Potassium Level 4.6 MMOL/L (3.5-5.1) Chloride Level 109 MMOL/L (98-107) H Carbon Dioxide Level 27 MMOL/L (21-32) Anion Gap 4 mmol/L (5-15) L Blood Urea Nitrogen 23 mg/dL (7-18) H Creatinine 0.9 MG/DL (0.55-1.30) Estimat Glomerular Filtration Rate mL/min (>60) Glucose Level 118 MG/DL (74-106) H Calcium Level 8.7 MG/DL (8.5-10.1) Intake and Output 03/15/17 03/16/17 19:00 07:00 Intake Total 775 ml 255 ml Output Total 1007 ml 800 ml Balance -232 ml -545 ml Intake Oral 420 ml 200 ml IV Total 355 ml 55 ml Output Urine Total 1000 ml 800 ml Estimated Blood Loss 7 ml # Bowel Movements 2 Objective General Appearance: WD/WN, no apparent distress, alert EENT: PERRL/EOMI, normal ENT inspection, TMs normal Neck: non-tender, normal alignment, supple Cardiovascular: normal peripheral pulses, regular rhythm, no gallop/murmur, no JVD, bradycardia Respiratory/Chest: chest wall non-tender, lungs clear, normal breath sounds, no respiratory distress, no accessory muscle use Abdomen: normal bowel sounds, non tender, soft, no organomegaly, no mass Extremities: normal range of motion, non-tender 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 S/P pacemaker implant 03/14/17; repeat surgery 03/15/17. See Cardiology note. (2) Hypertension (3) Chest pain with moderate risk of acute coronary syndrome (4) Second degree heart block (5) Diabetes mellitus Assessment & Plan: Continue novolog sliding scale. Status: not improved Assessment/Plan discharge planning MONY QUINTERO Mar 16, 2017 15:16
[2017-03-16 16:00] VITALS: BP 135/73
--- NOTE | 2017-03-16 17:01 | Cardiology Report ---
APPROVED REPORT EKG Measurement Heart [id number] Sinus bradycardia Possible Left atrial enlargement Right bundle branch block Left anterior fascicular block Bifascicular block Left ventricular hypertrophy Cannot rule out Septal infarct, age undetermined Abnormal ECG
--- NOTE | 2017-03-16 17:59 | Discharge Instructions ---
Discharge Instructions Discharge Instructions Resume Normal Activity?: No Activity: other - Limit activity w Lt arm - no raising above shoulder level or heavy lifting w/ L arm For Surgical Patients Clean and Dry: surgical site Dressing Care: keep dry and clean May shower: Yes Contact your physician for: bleeding, pain, redness, swelling, yellowish discharge in the op. site For Congestive Heart Failure Reminder Report to your physician any weight gain of 5 pounds or more in one week. TERRY BLUE Mar 16, 2017 17:59
--- NOTE | 2017-03-16 18:03 | Cardiology Progress Note ---
Assessment/Plan Status: stable, progressing Status Narrative Stable, s/p revision/ repositioning of ra, rv pacing leads on 2 Appropriate pacing/sensing on telemetry Device checked today - thresholds 0.5 v/ 0.4 ms in both chambers, and good sensing in both atr and ventr Assessment/Plan Plan for dc home today. Wound care and activity instructions given. She will return in 1 wk for wound check. Subjective ROS Limited/Unobtainable: No Subjective Cardiac EP/ Cardiology for Dr. Argueta No c/o .Events noted Objective Last 24 Hour Vital Signs Date Time Temp Pulse Resp B/P (MAP) Pulse Ox O2 Delivery O2 Flow Rate FiO2 03/16/17 16:27 85 03/16/17 12:00 84 03/16/17 11:55 97.9 75 20 124/65 100 Nasal Cannula 2.0 03/16/17 11:30 80 16 99 Nasal Cannula 2.0 28 03/16/17 11:30 80 16 99 Nasal Cannula 2.0 28 03/16/17 09:19 118/67 03/16/17 08:00 97.5 84 20 118/67 99 Nasal Cannula 3.0 03/16/17 08:00 72 03/16/17 04:00 98.1 77 20 132/80 99 Nasal Cannula 3.0 03/16/17 04:00 76 03/16/17 00:00 98.1 83 20 142/78 100 Nasal Cannula 3.0 03/16/17 00:00 88 03/15/17 22:55 69 16 96 Room Air 21 03/15/17 22:48 67 16 96 Room Air 21 03/15/17 20:00 97.0 92 20 137/78 97 Nasal Cannula 3.0 General Appearance: WD/WN, no apparent distress, alert EENT: PERRL/EOMI Neck: supple, no JVD Rhythm: NSR Cardiovascular: normal rate, no gallop/murmur Respiratory/Chest: lungs clear, other - L infraclav incision - clean, no hematoma. Tegaderm dressing intact Abdomen: non tender, soft Intake and Output 03/15/17 03/16/17 19:00 07:00 Intake Total 775 ml 255 ml Output Total 1007 ml 800 ml Balance -232 ml -545 ml Intake Oral 420 ml 200 ml IV Total 355 ml 55 ml Output Urine Total 1000 ml 800 ml Estimated Blood Loss 7 ml # Bowel Movements 2 Laboratory Tests Test 03/16/17 04:40 White Blood Count 11.2 K/UL (4.8-10.8) H Red Blood Count 3.31 M/UL (4.20-5.40) L Hemoglobin 9.1 G/DL (12.0-16.0) L Hematocrit 27.1 % (37.0-47.0) L Mean Corpuscular Volume 82 FL (80-99) Mean Corpuscular Hemoglobin 27.5 PG (27.0-31.0) Mean Corpuscular Hemoglobin Concent 33.6 G/DL (32.0-36.0) Red Cell Distribution Width 13.2 % (11.6-14.8) Platelet Count 209 K/UL (150-450) Mean Platelet Volume 6.4 FL (6.5-10.1) L Neutrophils (%) (Auto) 76.8 % (45.0-75.0) H Lymphocytes (%) (Auto) 13.5 % (20.0-45.0) L Monocytes (%) (Auto) 8.4 % (1.0-10.0) Eosinophils (%) (Auto) 0.8 % (0.0-3.0) Basophils (%) (Auto) 0.5 % (0.0-2.0) Sodium Level 140 MMOL/L (136-145) Potassium Level 4.6 MMOL/L (3.5-5.1) Chloride Level 109 MMOL/L (98-107) H Carbon Dioxide Level 27 MMOL/L (21-32) Anion Gap 4 mmol/L (5-15) L Blood Urea Nitrogen 23 mg/dL (7-18) H Creatinine 0.9 MG/DL (0.55-1.30) Estimat Glomerular Filtration Rate mL/min (>60) Glucose Level 118 MG/DL (74-106) H Calcium Level 8.7 MG/DL (8.5-10.1) TERRY BLUE Mar 16, 2017 18:03
[2017-03-16] MEDS ORDERED: Tubing IV Secondary IV ONE (18:09)
[2017-03-16] MEDS ORDERED: Norco 5mg/325mg tab ORAL ONE (19:00)
[2017-03-16 20:00] VITALS: BP 129/80
--- NOTE | 2017-03-16 23:05 | Procedure Note ---
REASON FOR PROCEDURE: Lead dislodgement. CLINICAL HISTORY: The patient is a 72-year-old woman with 2:1 second-degree heart block, who underwent permanent pacemaker on 03/14/2017. Her leads were noted to have pulled back, was non-capture. She was brought for lead revision. The implanted leads in the atrium is [employer] Tendril 2088 TC, serial number [id number] and the ventricle is [employer] Tendril 2088TC, serial number [id number]. The device is [employer] Assurity MRI 2272, serial number [id number]. PACING AND SENSING: Pacing threshold in the atrium and ventricle 0.5 volts at 0.4 milliseconds. Sensing 3.1 millivolts in the atrium, 4.5 millivolts in the ventricle. Lead impedance was 410 in the atrium, 650 ohms in the ventricle. ANESTHESIA: Local intravenous sedation. DESCRIPTION OF PROCEDURE: The patient was was brought to the operating room, received sedation as per the anesthesiologist, Dr. Ochoa. The left chest was sterilely prepped and draped in the usual manner. The skin and underlying soft tissues over the previous incision were infiltrated with 1% Xylocaine local anesthetic. An incision was made over the previous incision. This was carried down to the capsule enclosing the generator. Generator was explanted. The sutures were cut from the suture sleeves and the leads were detached from the generator. Stylettes were placed in the leads. The atrial lead was noted to have dislodged to the ventricle and the V lead had pulled back. The screws were retracted on both leads. The ventricular lead was then readvanced to the right ventricular apex. Mapping of the apical area showed relatively low sensing in multiple areas. Final lead position was as noted above. The screw was advanced under fluoroscopy. The thresholds were stable. The atrial lead was then repositioned in the right atrial appendage. The screw was advanced under fluoroscopy. The above pacing and sensing thresholds were obtained. There was no diaphragmatic stimulation with pacing at 10 volts in either chamber. The pocket was flushed with antibiotic solution. The leads were secured to the underlying fascia with two nonabsorbable sutures via the suture sleeves. The pulse generator is brought to the field. Atrial and ventricular leads were attached. The setscrews were tightened and checked. The leads and generator placed into the subcutaneous pocket with the excess lead coiled beneath the generator. The incision was then closed with 2-0 and 4-0 Monocryl absorbable suture and a sterile dressing was applied. The patient tolerated the procedure well and there were no intraprocedural complications. Ilene Ji M.D. DR: Svitlana JOB#: [id number] CC: Juvenal Argueta M.D.; Fax#: [phone] WILLIS CHATTERJEE M.D. ; FAX#: [phone]
--- NOTE | 2017-03-19 10:19 | Discharge Summary ---
Discharge Summary Hospital Course Date of Admission Mar 12, 2017 at 18:04 Date of Discharge Mar 16, 2017 at 21:30 Admitting Diagnosis CHEST PAIN [place] Lo is a 72 year old female who was admitted on Mar 12, 2017 at 18: 04 for Chest Pain Hospital Course dc summary #[id number] Discharge Medications Continued Medications: Allopurinol* (Allopurinol*) 300 Mg Tablet 300 MG ORAL DAILY, TAB Budesonide/Formoterol Fumarate (Symbicort 160-4.5 Mcg Inhaler) 10.2 Gm Hfa.aer.ad 2 PUFF IH BID, INH 0 Refills Hydrochlorothiazide* (Hydrochlorothiazide*) 25 Mg Tablet 25 MG ORAL DAILY, TAB Losartan Potassium* (Losartan Potassium*) 50 Mg Tablet 50 MG ORAL DAILY, TAB Sitagliptin Phos/Metformin Hcl (Janumet 50-1,000 Mg Tablet) 1 Each Tablet 1 TAB ORAL TWICE A DAY, TAB Discharge Condition Upon Discharge: stable Discharge Disposition Patient was discharged to Home Discharge Diagnoses: Discharge Instructions Discharge Instructions Activity: other - Limit activity w Lt arm - no raising above shoulder level or heavy lifting w/ L arm For Surgical Patients Clean and Dry: surgical site Dressing Care: keep dry and clean May shower: Yes Contact your physician for: bleeding, pain, redness, swelling, yellowish discharge in the op. site Valeria Mahan NP (Vanchtein) Mar 19, 2017 10:19
--- NOTE | 2017-03-20 04:31 | Discharge Summary 2 SIG ---
DATE OF ADMISSION: 03/12/2017 DATE OF DISCHARGE: 03/16/2017 REASON FOR ADMISSION: 72-year-old female with a history of diabetes, hypertension, hypercholesteremia, GERD and gout presented to the emergency department with increasing leg edema, bilateral flank pain and chest pain. She had a nonproductive cough. She denied fevers and chills. Chest pain was described aching and burning. The patient recently had a kidney stone removal. Upon evaluation in the emergency department, the patient's troponin was negative. EKG revealed second-degree Mobitz 2 AV block. The patient was bradycardic, heart rate -47. Chest x-ray revealed cardiomegaly with evidence of CHF. CTA of the chest revealed right renal subcapsular hematoma, cardiomegaly, atelectasis and no PE. Blood pressure was elevated-162/56. Creatinine -1.3. Troponin was negative. No leukocytosis. Anemic with hemoglobin- 9.7 and hematocrit -30.1. The patient admitted for further management with diagnosis of a second-degree AV block, congestive heart failure and chest pain. HOSPITAL COURSE: The patient admitted. Cardiology consult was requested along with cardiac electrophysiology consult. The patient was in [place]. Serial troponin x2 were negative. EKG revealed no acute ischemic changes. Therefore, the patient was ruled out for acute NM. Trim Master Operator and cardiac casting machine set up operator clsoely followed. The patient had a second-degree heart block with 2:1 conduction with persistent bradycardia along with right bundle-branch block and left anterior fascicular block. The patient required permanent pacemaker placement. The patient undergone permanent pacemaker implantation on 03/14/2017. The patient was on empiric antibiotics. Pain management provided. Pain specialist followed. However, the pacemaker was not capturing due to the dislodgement of leads. The patient subsequently next day had undergone lead repositioning. Pacemaker interrogation was done afterwards and revealed appropriate pacing/sensing on telemetry. Surgical site clean, intact, minimal edema. pain controlled. Patrol Agent cleared the patient for discharge home and follow up as outpatient. Basting Marker followed. Blood sugar was stable. Basting Marker recommended recommended to decrease the outpatient dose of Janumet 50/100 mg to 50/500 mg due to elevated creatinine. Creatinine down to normal. While in the hospital, blood sugar was managed with sliding scale of insulin. No need for sliding scale of insulin as outpatient. Continue with the Janumet , but decreased dose. DVT prophylaxis provided. Supplemental oxygen provided as needed to keep pulse oximetry above 92%. Prior to discharge, pulse oximetry stable on room air. Nebulizing treatment was on the board as needed. Counts were closely monitored. Hemoglobin and hematocrit remained at the baseline. No need for transfusion. Goal to keep hemoglobin above 7. Blood pressure was managed with current antihypertensive regimen and remained stable. The patient was discharged home. FINAL DIAGNOSES: 1. Second-degree heart block with 2:1 conduction with persistent bradycardia, 2. Right bundle-branch block 3. Left anterior fascicular block, 4. Status post permanent pacemaker placement on 03/14/2017 5. Status post lead repositioning on 03/15/2017 secondary to lead dislodgement. 6. Diabetes mellitus. 7. Hypertension. 8. Anemia. DISCHARGE MEDICATIONS: See medication reconciliation list. DISCHARGE INSTRUCTIONS: The patient discharged home. Follow up with vp strategic partnerships and casting machine set up operator as outpatient as advised. Alonso Reddy M.D. Valeria OlivierBuffalo General Medical Centerdianne NBrayden DR: LEBRON JOB#: [id number] CC: ALFONSO
== END 2017-03-16 21:30 | disposition home or self-care (01) | DRG 243 ==
LOC: EMR 17:50 → 2W 18:04 → EDBEDREQSVC 20:58 → EDBEDREQ 20:58
PROC: 0JH606Z Insertion of Pacemaker, Dual Chamber into Chest Subcutaneous Tissue and Fascia, Open Approach (ICD-10-PCS; principal; 2017-03-14 07:00)
PROC: 02HK3JZ Insertion of Pacemaker Lead into Right Ventricle, Percutaneous Approach (ICD-10-PCS; principal; 2017-03-14 07:00)
PROC: 02H63JZ Insertion of Pacemaker Lead into Right Atrium, Percutaneous Approach (ICD-10-PCS; principal; 2017-03-14 07:00)
PROC: 02WA3MZ Revision of Cardiac Lead in Heart, Percutaneous Approach (ICD-10-PCS; 2017-03-15)
DX: I44.1 Atrioventricular block, second degree (principal); T82.120A Displacement of cardiac electrode, initial encounter; E11.9 Type 2 diabetes mellitus without complications; D64.9 Anemia, unspecified; E03.9 Hypothyroidism, unspecified; I10 Essential (primary) hypertension; M10.9 Gout, unspecified; R07.9 Chest pain, unspecified; M17.12 Unilateral primary osteoarthritis, left knee; Z79.84 Long term (current) use of oral hypoglycemic drugs; R00.1 Bradycardia, unspecified; I45.2 Bifascicular block; Y83.9 Surgical procedure, unspecified as the cause of abnormal reaction of the patient, or of later complication, without mention of misadventure at the time of the procedure
CPT/HCPCS: 36415; 71045; 71275; 76001; 80048; 80053; 81003; 82550; 82962; 83880; 84443; 84484; 85025; 85610; 85730; 86850; 86900; 86901; 93005; 94003; 94150; 94640; 99285; J1815; J2250; J2405; J3490

== ENCOUNTER 2017-11-29 16:14 | Emergency (ER) | payer MEDICARE ==
[~2017-11-29] VITALS: Ht 154.9 cm; Wt 81.6 kg
[~2017-11-29 16:14] MED LIST changes: +HYDROCHLOROTHIA25 MG ORAL; +JANUMET 50-1,01 EACH ORAL; +SYMBICORT 16010.2 G1 IH
[2017-11-29 16:34] VITALS: BP 134/75
--- NOTE | 2017-11-29 17:30 | Emergency Room Report ---
History of Present Illness General Chief Complaint: Multiple Trauma/Fall Source: Medical Record Present Illness HPI 72-year-old female presents to the emergency department complaining of 10 out of 10 in severity pain in the right shoulder with 5 out of 10 in severity pain to the left knee status post mechanical trip and fall yesterday. Patient reports she was walking in a parking lot when she fell and landed on her left knee. Patient states she's not quite sure how her arm got injured she does report that pain is exacerbated upon attempts to raise her arm. Patient denies paresthesias or open wounds. Patient denies tenderness to the low forearm wrist or hand. Patient states she is able to move all joints except for the shoulder. Patient reports previous history of rotator cuff injury in the shoulder. Patient reports 10 out of 10 in severity soreness to the left forearm however she states she is not suspicious of fracture of the left forearm. She denies hitting her head she did not lose consciousness she denies midline neck or back pain. She denies chest pain or palpitations or dizziness prior to falling. Allergies: Coded Allergies: No Known Allergies (Unverified , 07/18/12) Patient History Past Medical History: see triage record Past Surgical History: none Pertinent Family History: none Reviewed Nursing Documentation: PMH: Agreed; PSxH: Agreed Nursing Documentation-PMH Past Medical History: No History, Except For Hx Cardiac Problems: Yes Hx Hypertension: Yes Hx Pacemaker: Yes Hx Asthma: No Hx COPD: No Hx Diabetes: Yes Hx Cancer: No Hx Gastrointestinal Problems: Yes - lithotripsy 01/26, 02/21/2017 at [facility] Hx Dialysis: No History Of Psychiatric Problem: No Hx Neurological Problems: No Hx Cerebrovascular Accident: No Hx Seizures: No Review of Systems All Other Systems: negative except mentioned in HPI Physical Exam Vital Signs Date Time Temp Pulse Resp B/P (MAP) Pulse Ox O2 Delivery O2 Flow Rate FiO2 11/29/17 16:27 98.9 85 16 134/75 94 Room Air 99.0 Sp02 EP Interpretation: reviewed, normal General Appearance: alert, GCS 15, non-toxic, mild distress Head: normocephalic, atraumatic Eyes: bilateral eye normal inspection, bilateral eye PERRL ENT: hearing grossly normal, normal voice Neck: full range of motion Respiratory: lungs clear, normal breath sounds, speaking full sentences Cardiovascular #1: regular rate, rhythm Musculoskeletal: back normal, gait/station normal, normal range of motion, tender - anterior left knee, no increased laxity, swelling or obvious deformity , no bruising.; Right shoulder, no obviuos d/c or step off, no clicking, pain with raising arm above 40*. NVI, FROM of elbow and wrist. no appreciable weakness Neurologic: alert, oriented x3, responsive, motor strength/tone normal, sensory intact, speech normal, other - equal stump blower strength, grossly normal Psychiatric: judgement/insight normal Skin: normal color, no rash, warm/dry, well hydrated Medical Decision Making PA Attestation Dr. benjamin is my supervising Physician whom patient management has been discussed with. Diagnostic Impression: Primary Impression: Sprain of shoulder, right Qualified Codes: S43.401A - Unspecified sprain of right shoulder joint, initial encounter Additional Impressions: Rotator cuff injury Qualified Codes: S46.001A - Unspecified injury of muscle(s) and tendon(s) of the rotator cuff of right shoulder, initial encounter Contusion of knee, left Qualified Codes: S80.02XA - Contusion of left knee, initial encounter ER Course 72-year-old female presents to the emergency department complaining of 10 out of 10 in severity pain in the right shoulder with 5 out of 10 in severity pain to the left knee status post mechanical trip and fall yesterday. Patient reports she was walking in a parking lot when she fell and landed on her left knee. Patient states she's not quite sure how her arm got injured she does report that pain is exacerbated upon attempts to raise her arm. Patient denies paresthesias or open wounds. Patient denies tenderness to the low forearm wrist or hand. Patient states she is able to move all joints except for the shoulder. Patient reports previous history of rotator cuff injury in the shoulder. Patient reports 10 out of 10 in severity soreness to the left forearm however she states she is not suspicious of fracture of the left forearm. She denies hitting her head she did not lose consciousness she denies midline neck or back pain. She denies chest pain or palpitations or dizziness prior to falling. Ddx considered but are not limited to Fracture, dislocation, contusion, Sprain/ Strain/Spasm, rotator cuff injury. Vital signs: are WNL, pt. is afebrile H&PE are most consistent with musculoskeletal injury will perform imaging to r/ o fractures/dislocations. ORDERS: - X-rays of the right shoulder and left knee - negative for fx, Dislocation, or significant soft tissue injury, per preliminary read in ED, and signed by KAYA Vernon, my supervising physician has reviewed, and agrees with my interpretation. ED INTERVENTIONS: - Tylenol PO -Lidoderm patch TP -- Right arm Sling applied by network technology instructor. Pt. remains neurovascularly intact. DISCHARGE: At this time pt. is stable for d/c to home. Will provide printed patient care instructions, and any necessary prescriptions. Care plan and follow up instructions have been discussed with the patient prior to discharge. Other X-Ray Diagnostic Results Other X-Ray Diagnostic Results #1: X-Ray ordered: Right shoulder # of Views/Limited Vs Complete: 3 View Indication: Pain EP Interpretation: Yes KAYA Xray: Interpretation reviewed, by supervising MD, and agrees with findings. Interpretation: no dislocation, no soft tissue swelling, no fractures Impression: No acute disease Electronically Signed by: Jennifer Vernon PA-C Other X-Ray Diagnostic Results #2: X-Ray ordered: LEft knee # of Views/Limited Vs Complete: 3 View Indication: Pain EP Interpretation: Yes KAYA Xray: Interpretation reviewed, by supervising MD, and agrees with findings. Interpretation: no dislocation, no fractures Impression: No acute disease Electronically Signed by: Jennifer Vernon PA-C Last Vital Signs Date Time Temp Pulse Resp B/P (MAP) Pulse Ox O2 Delivery O2 Flow Rate FiO2 11/29/17 17:22 99.0 11/29/17 16:34 16 134/75 94 Room Air 11/29/17 16:27 85 Disposition: HOME, SELF-CARE Condition: Stable Scripts Lidocaine (Lidoderm) 1 Each Adh..patch 1 PATCH TOPIC DAILY, #30 PATCH 0 Refills Patch(es) may remain in place for up to 12 hours in any 24-hour period. Prov: Jennifer Vernon 11/29/17 Acetaminophen* (TYLENOL EXTRA STRENGTH*) 500 Mg Tablet 500 MG ORAL Q6H, #20 TAB 0 Refills Prov: Jennifer Vernon 11/29/17 Patient Instructions: Contusion, [id number], Shoulder Sprain Additional Instructions: Take medications as directed. Follow up with an NETWORK ANNOUNCER in 3-5 days, even if your symptoms have resolved. If symptoms persist MRI may be required at the discretion of your PCP or Ortho Specialist. --Please review list of primary care clinics, if you do not already have a primary care provider who can give you an Orthopedic Referral. Return sooner to ED if new symptoms occur, or current symptoms become worse. - Please note that this Emergency Department Report was dictated using [employer] organizer technology software, occasionally this can lead to erroneous entry secondary to interpretation by the dictation equipment. Jennifer Vernon Nov 29, 2017 17:30
[2017-11-29] MEDS ORDERED: TYLENOL EXTRA500 MG ORAL (17:58)
[2017-11-29] MEDS ORDERED: LIDODERM700 M1 TOPIC (18:06)
--- NOTE | 2017-11-29 18:18 | Diagnostic Imaging Report ---
EXAM: XR Right Shoulder Complete, 2 or More Views CLINICAL HISTORY: PAIN TECHNIQUE: Two or more views of the right shoulder. COMPARISON: 11/24/2014 FINDINGS: Bones/joints: No acute fracture or dislocation. Mild degenerative changes of the right acromioclavicular and glenohumeral joints. Soft tissues: Unremarkable. IMPRESSION: No acute fracture or dislocation.
--- NOTE | 2017-11-29 18:19 | Diagnostic Imaging Report ---
EXAM: XR Left Knee, 3 views CLINICAL HISTORY: PAIN TECHNIQUE: Three views of the left knee. COMPARISON: 11/24/2014 FINDINGS: Bones/joints: No acute fracture or malalignment. Mild degenerative changes in the medial compartment with joint space narrowing and small osteophytes. Soft tissues: Unremarkable. IMPRESSION: No acute osseous abnormality. Mild degenerative changes.
[2017-11-29 18:44] VITALS: BP 134/75
== END 2017-11-29 18:45 | disposition home or self-care (01) ==
LOC: EMR 16:56
DX: S46.091A Other injury of muscle(s) and tendon(s) of the rotator cuff of right shoulder, initial encounter (principal); S43.491A Other sprain of right shoulder joint, initial encounter; S80.01XA Contusion of right knee, initial encounter; M25.511 Pain in right shoulder; M25.562 Pain in left knee; I10 Essential (primary) hypertension; E11.9 Type 2 diabetes mellitus without complications; Z95.0 Presence of cardiac pacemaker; W01.0XXA Fall on same level from slipping, tripping and stumbling without subsequent striking against object, initial encounter; Y93.01 Activity, walking, marching and hiking; Y92.481 Parking lot as the place of occurrence of the external cause; Y99.9 Unspecified external cause status
CPT/HCPCS: 99284

== ENCOUNTER 2018-04-26 21:09 | Emergency (ER) | payer MEDICARE ==
[~2018-04-26] VITALS: Ht 154.9 cm; Wt 81.6 kg
[~2018-04-26 21:09] MED LIST changes: +LIDODERM700 M1 TOPIC; +TYLENOL EXTRA500 MG ORAL
[2018-04-26 21:36] VITALS: BP 137/82
--- NOTE | 2018-04-26 21:38 | NUR ---
ED Nurse Note: NON-PRODUCTIVE COUGH FOR 1 WEEK, CHEST DISCOMFORT WHEN COUGHING 7/10.
[2018-04-26] MEDS ORDERED: ALBUTEROL SULF8.5 GM INH (21:44)
[2018-04-26] MEDS ORDERED: ZITHROMAX250 MG ORAL (21:44)
[2018-04-26] MEDS ORDERED: Albuterol/Ipratropium 3ml neb HHN ONE (21:45)
--- NOTE | 2018-04-26 21:45 | Emergency Room Report ---
History of Present Illness General Chief Complaint: Upper Respiratory Illness Source: Patient Present Illness HPI This is a 73-year-old female with a history diabetes, high blood pressure. She presents with chief complaint of coughing and congestion. Ongoing for a week now. Has runny nose and congestion. Cough is nonproductive in nature. Worse was lay flat. Worse when she take a deep breath. She fell possible wheezing. Denies any fever chills denies any swelling. Denies any chest pain. Allergies: Coded Allergies: No Known Allergies (Unverified , 04/26/18) Patient History Past Medical History: see triage record, old chart reviewed, DM, HTN Past Surgical History: pacemaker Pertinent Family History: none Social History: Denies: smoking Now: No Immunizations: other Reviewed Nursing Documentation: PMH: Agreed; PSxH: Agreed Nursing Documentation-PMH Hx Cardiac Problems: Yes Hx Hypertension: Yes Hx Pacemaker: Yes Hx Asthma: No Hx COPD: No Hx Diabetes: Yes Hx Cancer: No Hx Gastrointestinal Problems: Yes - lithotripsy 01/26, 02/21/2017 at [facility] Hx Dialysis: No Hx Neurological Problems: No Hx Cerebrovascular Accident: No Hx Seizures: No Review of Systems Eye: Reports: nose congestion; Denies: eye pain, blurred vision ENT: Reports: nose congestion; Denies: ear pain, throat swelling Respiratory: Reports: cough, shortness of breath Cardiovascular: Denies: chest pain, palpitations Gastrointestinal: Denies: abdominal pain, diarrhea, nausea, vomiting Musculoskeletal: Denies: back pain, joint pain Skin: Denies: rash Neurological: Denies: headache, numbness Endocrine: Denies: increased thirst, increased urine Hematologic/Lymphatic: Denies: easy bruising All Other Systems: negative except mentioned in HPI Physical Exam Vital Signs Date Time Temp Pulse Resp B/P (MAP) Pulse Ox O2 Delivery O2 Flow Rate FiO2 04/26/18 21:25 98.1 82 16 137/82 95 Room Air vitals normal Sp02 EP Interpretation: reviewed, normal General Appearance: well appearing, no apparent distress, alert Head: normocephalic, atraumatic Eyes: bilateral eye PERRL, bilateral eye EOMI ENT: hearing grossly normal, normal pharynx Neck: full range of motion, supple, no meningismus Respiratory: chest non-tender, wheezing - Slight wheezing with inspiration. Coughing with inspiration Cardiovascular #1: regular rate, rhythm, no murmur Gastrointestinal: normal bowel sounds, non tender, no mass, no organomegaly, no bruit, non-distended Musculoskeletal: back normal, gait/station normal, normal range of motion Psychiatric: mood/affect normal Skin: warm/dry Medical Decision Making Diagnostic Impression: Primary Impression: Upper respiratory infection Qualified Codes: J06.9 - Acute upper respiratory infection, unspecified Additional Impression: Reactive airway disease with wheezing Qualified Codes: J45.20 - Mild intermittent asthma, uncomplicated ER Course Patient with upper rest or infection. Most likely viral in nature. Since his been ongoing for a week, we'll put her on antibiotics based on her risk factors. No evidence of ACS, PE, dissection to name a few. Patient felt better after albuterol treatment. We'll discharge home with inhaler. Last Vital Signs Date Time Temp Pulse Resp B/P (MAP) Pulse Ox O2 Delivery O2 Flow Rate FiO2 04/26/18 21:36 98.1 82 16 137/82 95 Room Air Status: improved Disposition: HOME, SELF-CARE Condition: Stable Scripts Azithromycin* (ZITHROMAX*) 250 Mg Tablet 250 MG ORAL DAILY, #6 TAB 0 Refills Take two tables once daily for 1 day, then one tablet once daily for 4 days. Prov: Felton Barnett MD 04/26/18 Albuterol Sulfate* (ALBUTEROL SULFATE MDI*) 8.5 Gm Hfa.aer.ad 2 PUFF INH Q4H PRN for cough/wheezing, #1 EA 0 Refills Prov: Felton Barnett MD 04/26/18 Patient Instructions: Upper Respiratory Infection, Adult Additional Instructions: Follow up with your DrSerjio in 7 days. Return if symptom worsen. Felton Barnett MD Apr 26, 2018 21:45
[2018-04-26 22:00] VITALS: BP 137/82
--- NOTE | 2018-04-26 22:00 | NUR ---
ER DISCHARGE NOTE: Patient is cleared to be discharged per ERMD, pt is aox4, on room air, with stable vital signs. pt was given dc and prescription instructions, pt was able to verbalize understanding, pt id band removed. pt is able to ambulate with steady gait. pt took all belongings.
== END 2018-04-26 22:00 | disposition home or self-care (01) ==
LOC: EMR 21:53
DX: J06.9 Acute upper respiratory infection, unspecified (principal); J45.20 Mild intermittent asthma, uncomplicated; E11.9 Type 2 diabetes mellitus without complications; I10 Essential (primary) hypertension; Z95.0 Presence of cardiac pacemaker
CPT/HCPCS: 94640; 94664; 99284; J7620

== ENCOUNTER 2018-05-05 11:06 | Emergency (ER) | payer MEDICARE ==
[~2018-05-05] VITALS: Ht 154.9 cm; Wt 83.9 kg
[~2018-05-05 11:06] MED LIST changes: +ALBUTEROL SULF8.5 GM INH; +ZITHROMAX250 MG ORAL
[2018-05-05 11:17] VITALS: BP 116/72
--- NOTE | 2018-05-05 11:24 | NUR ---
ED Nurse Note: Patient presents to ER due to left ankle pain x 2 days; Patient states she forgot to take Allopurinol for the past 2 days. Reports no injury. Provided comfort measures. Bed in lowest position.
--- NOTE | 2018-05-05 11:58 | Emergency Room Report ---
History of Present Illness General Chief Complaint: Pain Source: Patient, Medical Record Present Illness HPI 73-year-old female with history diabetes and gout presents with left ankle pain started last night, she tried [place] without much relief last night, she denies any falls, injuries, redness, fevers, calf pain, any other complaints. He is achy, severe, worse with movement. Allergies: Coded Allergies: No Known Allergies (Unverified , 04/26/18) Patient History Past Medical History: see triage record Last Menstrual Period: menopause Reviewed Nursing Documentation: PMH: Agreed; PSxH: Agreed Nursing Documentation-PMH Past Medical History: No History, Except For Hx Cardiac Problems: Yes Hx Hypertension: Yes Hx Pacemaker: Yes Hx Asthma: No Hx COPD: No Hx Diabetes: Yes Hx Cancer: No Hx Gastrointestinal Problems: Yes - lithotripsy 01/26, 02/21/2017 at [facility] Hx Dialysis: No Hx Neurological Problems: No Hx Cerebrovascular Accident: No Hx Seizures: No Review of Systems All Other Systems: negative except mentioned in HPI Physical Exam Vital Signs Date Time Temp Pulse Resp B/P (MAP) Pulse Ox O2 Delivery O2 Flow Rate FiO2 05/05/18 11:16 99.0 91 16 116/72 99 Room Air Sp02 EP Interpretation: reviewed, normal General Appearance: no apparent distress, alert, non-toxic Head: normocephalic Eyes: bilateral eye normal inspection, bilateral eye PERRL, bilateral eye EOMI ENT: normal ENT inspection, hearing grossly normal, normal pharynx, no angioedema, normal voice, moist mucus membranes Neck: normal inspection, full range of motion, supple, supple/symm/no masses Respiratory: chest non-tender, lungs clear, normal breath sounds, chest symmetrical, palpation of chest normal Cardiovascular #1: normal peripheral pulses, regular rate, rhythm Cardiovascular #2: 2+ radial (R), 2+ radial (L), 2+ dorsalis pedis (R), 2+ dorsalis pedis (L) Gastrointestinal: normal inspection, non tender, soft, no mass, no guarding, no rebound Rectal: deferred Genitourinary: normal inspection, no CVA tenderness Musculoskeletal: back normal, gait/station normal, normal range of motion - Able to range left ankle but does cause some pain along the medial malleolus and foot dorsum, non-tender, no calf tenderness, Fredy's Sign negative Neurologic: alert, responsive, project facilitator III-XII nml as tested, motor strength/tone normal, sensory intact, speech normal Psychiatric: judgement/insight normal, memory normal, mood/affect normal, no suicidal/homicidal ideation Skin: normal color, no rash, warm/dry, normal turgor, other - No erythema overlying medial malleolus or foot dorsum Lymphatic: no adenopathy Medical Decision Making Diagnostic Impression: Primary Impression: Gout attack ER Course Patient with sings and symptoms c/w gout flare, given toradol and 2 norco here. WIll dc with steroids, pain meds, PMD f/u with Dr. Reddy. Other X-Ray Diagnostic Results Other X-Ray Diagnostic Results : X-Ray ordered: L ankle # of Views/Limited Vs Complete: 2 View Indication: Pain EP Interpretation: Yes Interpretation: no dislocation, no soft tissue swelling Impression: No acute disease Electronically Signed by: Joo Balderas MD Last Vital Signs Date Time Temp Pulse Resp B/P (MAP) Pulse Ox O2 Delivery O2 Flow Rate FiO2 05/05/18 11:16 99.0 91 16 116/72 99 Room Air Disposition: HOME, SELF-CARE Condition: Stable JOO BALDERAS M.D May 05, 2018 11:58
[2018-05-05] MEDS ORDERED: Ketorolac 30mg Inj IM ONE (12:00)
[2018-05-05] MEDS ORDERED: HYDROcodone/Acetamin 5/325 tab ORAL ONE (12:00)
[2018-05-05] MEDS ORDERED: IBUPROFEN600 MG ORAL (13:31)
[2018-05-05] MEDS ORDERED: NORCO 5-325 TA1 EACH ORAL (13:31)
[2018-05-05 13:40] VITALS: BP 115/62
--- NOTE | 2018-05-05 19:16 | Diagnostic Imaging Report ---
Indication: left ankle Foot pain Comparison: None Findings: 2 views of the left ankle were obtained. There is a questionable fracture of the fifth metatarsal base not adequately imaged on this examination. Recommend standard foot series for clarification. There is generalized soft tissue swelling nonspecific in nature. There is no acute fracture of the ankle or malalignment of the ankle identified. IMPRESSION: Questionable fracture at the base of the fifth metatarsal not adequately evaluated on this examination. Recommend a left foot series and more views
== END 2018-05-05 13:40 | disposition home or self-care (01) ==
LOC: EMR 12:15
DX: M10.9 Gout, unspecified (principal); I10 Essential (primary) hypertension; Z95.0 Presence of cardiac pacemaker; E11.9 Type 2 diabetes mellitus without complications
CPT/HCPCS: 73600; 96372; 99283; J1885

== ENCOUNTER 2018-11-16 18:05 | Inpatient (IN) | payer MEDICARE, OTHER ==
[~2018-11-16] VITALS: Ht 154.9 cm; Wt 83.8 kg
[~2018-11-16 18:05] MED LIST changes: +IBUPROFEN600 MG ORAL; +NORCO 5-325 TA1 EACH ORAL
[2018-11-16 18:10] VITALS: BP 126/69
--- NOTE | 2018-11-16 18:10 | NUR ---
ED Nurse Note: pt walked in to ED due to coughing for 1 week. pt denies any pain at this time. pain on upper abdomen when she cough. unable to clear the secreation. intermittent dry cough noted. mask provide. breath sound clear. respirations even and non-labored noted. skin warm to touch. no open wound noted. will wait for the further order.
[2018-11-16] MEDS ORDERED: VITAMIN D400 UNI2 PO (18:13)
[2018-11-16] MEDS ORDERED: ASPIR 8181 MG ORAL (18:13)
[2018-11-16] MEDS ORDERED: Azithromycin 250mg tab ORAL ONE (19:15)
[2018-11-16] MEDS ORDERED: cefTRIAXone 2 GM in NS 110 ML IV SCH (19:15)
--- NOTE | 2018-11-16 19:15 | NUR ---
ED Nurse Note: Report given to BETY Dubon. Patient resting in bed. No facial grimacing or guarding noted.
[2018-11-16 19:46] VITALS: BP 126/57
--- NOTE | 2018-11-16 20:36 | Emergency Room Report ---
History of Present Illness General Chief Complaint: Upper Respiratory Illness Source: Medical Record (Tristan Paula) Present Illness HPI 73-year-old female with history of diabetes,CHF, hypertension and pacemaker all controlled here complaining of 1 week of continuous cough with phlegm production. Patient reports that she has been feeling weak for the past few days after coughing excessively. Reports one episode of chest pain after coughing, without radiation to arm or jaw. Denies palpitation, abdominal pain, nausea vomiting, sore throat and congestion. Denies fever and chills. Patient has oxygenation of 94% and appears weak. Denies unilateral or generalized weakness, slurred speech, headache and dizziness. Crackles are noted in the right lower lobe. Patient speaking in full sentences and in mild distress. Has not taken any medication for symptom relief. Dr Reddy is patient's primary care physician and is aware of the status of the patient (Tristan Paula) Allergies: Coded Allergies: No Known Allergies (Unverified , 04/26/18) Patient History Past Medical History: see triage record Past Surgical History: unable to obtain Pertinent Family History: none Now: No Immunizations: UTD Reviewed Nursing Documentation: PMH: Agreed; PSxH: Agreed (Tristan Paula) Nursing Documentation-PMH Past Medical History: No History, Except For Hx Cardiac Problems: Yes Hx Hypertension: Yes Hx Pacemaker: Yes Hx Asthma: No Hx COPD: No Hx Diabetes: Yes Hx Cancer: No Hx Gastrointestinal Problems: Yes - lithotripsy 01/26, 02/21/2017 at [facility] Hx Dialysis: No Hx Neurological Problems: No Hx Cerebrovascular Accident: No Hx Seizures: No (Tristan Paula) Review of Systems All Other Systems: negative except mentioned in HPI (Tristan Paula) Physical Exam Vital Signs Date Time Temp Pulse Resp B/P (MAP) Pulse Ox O2 Delivery O2 Flow Rate FiO2 11/16/18 18:10 98.2 92 18 126/69 (88) 94 Room Air Sp02 EP Interpretation: abnormal General Appearance: alert, GCS 15, mild distress Head: normocephalic, atraumatic Eyes: bilateral eye normal inspection, bilateral eye PERRL ENT: hearing grossly normal, normal pharynx, no angioedema, normal voice, TMs + canals normal Neck: full range of motion, supple/symm/no masses Respiratory: chest non-tender, no rhonchi, no retraction, no wheezing, crackles - RLL Cardiovascular #1: regular rate, rhythm, no edema, no murmur Gastrointestinal: normal bowel sounds, non tender, soft, non-distended, no guarding, no rebound Genitourinary: normal inspection, no CVA tenderness Musculoskeletal: back normal, gait/station normal, normal range of motion, non- tender, no calf tenderness Neurologic: alert, oriented x3, responsive, motor strength/tone normal, sensory intact, speech normal Psychiatric: judgement/insight normal, memory normal, mood/affect normal, no suicidal/homicidal ideation Skin: no rash Lymphatic: normal inspection, no adenopathy (Tristan Paula) Medical Decision Making PA Attestation All my diagnosis and treatment plans were reviewed ad discussed with my supervising physician Dr. Meraz (Tristan Paula) Diagnostic Impression: Primary Impression: PNA (pneumonia) ER Course 73-year-old female with history of diabetes,CHF, hypertension and pacemaker all controlled here complaining of 1 week of continuous cough with phlegm production. Patient reports that she has been feeling weak for the past few days after coughing excessively. Reports one episode of chest pain after coughing, without radiation to arm or jaw. Denies palpitation, abdominal pain, nausea vomiting, sore throat and congestion. Denies fever and chills. Patient has oxygenation of 94% and appears weak. Denies unilateral or generalized weakness, slurred speech, headache and dizziness. Crackles are noted in the right lower lobe. Patient speaking in full sentences and in mild distress. Has not taken any medication for symptom relief. Dr Reddy is patient's primary care physician and is aware of the status of the patient Ddx considered but are not limited to: bronchitis, PNA, URI viral, CHF exacerbation, sepsis Vital signs: are WNL, pt. is afebrile H&PE are most consistent with: Pneumonia and CHF ORDERS: Sepsis work-up ED INTERVENTIONS: Rocephin and azithromycin Patient was admitted with diagnosis of pneumonia and CHF to Dr. reddy under supervision of : Kt pt stable at time of admission (Tristan Paula) ER Course patient seen and evaluated by KAYA Levy. please see her note for full history and physical based on assessment, imaging there is concern for pneumonia vs CHF. given age and comorbdities patient will require admission case endorsed to Dr Reddy. (Gigi Meraz MD) EKG Diagnostic Results Rate: normal Rhythm: NSR ST Segments: no acute changes Other Impression no acute ST changes (Tristan Paula) Chest X-Ray Diagnostic Results Chest X-Ray Diagnostic Results : Chest X-Ray Ordered: Yes # of Views/Limited/Complete: 1 View Indication: Shortness of Breath EP Interpretation: Yes PA Xray: Interpretation reviewed, by supervising MD, and agrees with findings. Interpretation: no pneumothorax, other - infiltrates RLL Impression: Other - PNA (Tristan Paula) Last Vital Signs Date Time Temp Pulse Resp B/P (MAP) Pulse Ox O2 Delivery O2 Flow Rate FiO2 11/16/18 19:46 87 18 126/57 98 Room Air 11/16/18 18:10 98.2 (Tristan Paula) Status: improved (Gigi Meraz MD) Disposition: ADMITTED INPATIENT Condition: Stable Referrals: Alonso Reddy MD (PCP) Tristan Paula Nov 16, 2018 20:36 Gigi Meraz MD Nov 16, 2018 21:57
[2018-11-16 21:00] LABS: ANION GAP 7 mmol/L (5-15); BLOOD UREA NITROGEN 34 mg/dL (7-18); CALCIUM 9.5 MG/DL (8.5-10.1); CARBON DIOXIDE 29 MMOL/L (21-32); CHLORIDE 106 MMOL/L (98-107); CREATININE 1.5 MG/DL (0.55-1.30); POTASSIUM 3.9 MMOL/L (3.5-5.1); SODIUM 142 MMOL/L (136-145)
[2018-11-16] MEDS ORDERED: Morphine Sulfate 2mg/ml Inj(IV/IM USE ONLY) IVP PRN (21:00)
[2018-11-16] MEDS ORDERED: Albuterol/Ipratropium 3ml neb HHN PRN (21:00)
[2018-11-16] MEDS ORDERED: Miralax 17gm pkt ORAL PRN (21:00)
[2018-11-16 21:04] LABS: ALANINE AMINOTRANSFERASE 29 U/L (12-78); ALBUMIN 3.6 G/DL (3.4-5.0); ALKALINE PHOSPHATASE 78 U/L (46-116); ASPARTATE AMINO TRANSFERASE 26 U/L (15-37); BILIRUBIN,TOTAL 0.5 MG/DL (0.2-1.0)
[2018-11-16 21:06] LABS: BASOPHILS % (AUTO) 1.3 % (0.0-2.0); EOSINOPHILS % (AUTO) 6.9 % (0.0-3.0); HEMATOCRIT 41.9 % (37.0-47.0); HEMOGLOBIN 13.9 G/DL (12.0-16.0); LYMPHOCYTES % (AUTO) 35.1 % (20.0-45.0); MEAN CORPUSCULAR VOLUME 83 FL (80-99); MONOCYTES % (AUTO) 9.4 % (1.0-10.0); NEUTROPHILS % (AUTO) 47.4 % (45.0-75.0); PLATELET COUNT 182 K/UL (150-450); RED BLOOD COUNT 5.04 M/UL (4.20-5.40); RED CELL DISTRIBUTION WIDTH 11.6 % (11.6-14.8); WHITE BLOOD COUNT 6.3 K/UL (4.8-10.8)
--- NOTE | 2018-11-16 21:14 | NUR ---
ED Nurse Note: IV access established by RN. Medications given as prescribed. Patient to be admitted property list completed. No comlaints of pain.
[2018-11-16 21:17] LABS: CKMB 3.4 NG/ML (0.0-3.6)
--- NOTE | 2018-11-16 21:53 | NUR ---
ED Nurse Note: type and screen order cancelled per ER provider.
[2018-11-16 22:06] VITALS: BP 122/84
--- NOTE | 2018-11-16 22:10 | NUR ---
ED Nurse Note: report given to Cecily Snow from Tele.
--- NOTE | 2018-11-16 22:30 | NUR ---
Patient transferred from ED, received report via phone from Inna ALBERT, patient in stable condition, transferred via gurney but ambulated to bed, steady gait, AOx4, denies pain at this time, IV site on left AC g 20, belongings list checked and signed, family at bedside, admission orders in, will continue to monitor and reassess
--- NOTE | 2018-11-16 22:30 | NUR ---
ED Nurse Note: Pt transferred to tele on monitor technician, sinus rhythm, vss resp even and unlabored on RA, iv intact and patent, pt care endorsed to BETY Snow, all belongings sent w/ pt w/ completed list.
[2018-11-16] MEDS ORDERED: Vancomycin 1 GM in D5W 275 ML IV SCH (23:00)
[2018-11-16] MEDS ORDERED: Vancomycin 1.5gm/NS Premix IVPB ONE (23:00)
[2018-11-16] MEDS: Heparin 5000 units/ml inj SUBQ SCH (23:33)
[2018-11-17] MEDS ORDERED: Cefepime HCl 2 GM in D5W 110 ML IV ONE (01:00)
[2018-11-17 06:35] LABS: BASOPHILS % (AUTO) 1.3 % (0.0-2.0); EOSINOPHILS % (AUTO) 6.5 % (0.0-3.0); HEMATOCRIT 38.9 % (37.0-47.0); MEAN CORPUSCULAR VOLUME 83 FL (80-99); NEUTROPHILS % (AUTO) 47.2 % (45.0-75.0); PLATELET COUNT 188 K/UL (150-450); RED BLOOD COUNT 4.67 M/UL (4.20-5.40); RED CELL DISTRIBUTION WIDTH 12.4 % (11.6-14.8); WHITE BLOOD COUNT 5.8 K/UL (4.8-10.8)
[2018-11-17 07:02] LABS: ALBUMIN 3.1 G/DL (3.4-5.0); ANION GAP 7 mmol/L (5-15); BLOOD UREA NITROGEN 32 mg/dL (7-18); CALCIUM 9.2 MG/DL (8.5-10.1); CARBON DIOXIDE 28 MMOL/L (21-32); CHLORIDE 108 MMOL/L (98-107); CREATININE 1.2 MG/DL (0.55-1.30); PHOSPHORUS 3.5 MG/DL (2.5-4.9); POTASSIUM 4.2 MMOL/L (3.5-5.1); SODIUM 143 MMOL/L (136-145)
[2018-11-17 08:00] VITALS: BP 112/55
--- NOTE | 2018-11-17 08:08 | NUR ---
NURSE NOTES: Received patient and report from Elizabeth ALBERT sitting in bed resting, denies any pain, patient is coughing needs to collect sputum, will notify MD. Patient is AAO X4, bed is on lowest position with bedside rails up x2. Brakes engaged for safety. Call light is within reach. Will continue with the plan of care.
--- NOTE | 2018-11-17 08:13 | NUR ---
HAND-OFF: Report given to BETY Beverly, patient in stable condition, plan of care endorsed.
[2018-11-17] MEDS: Heparin 5000 units/ml inj SUBQ SCH ×2 (08:57→21:50)
--- NOTE | 2018-11-17 09:59 | NUR ---
*-* INSURANCE *-* ALL AVAILABLE CLINICALS HAVE BEEN FAXED TO: LEENA APONTEM:LAURA Farnsworth; [phone] F: [phone]
[2018-11-17 12:00] VITALS: BP 110/62
[2018-11-17] MEDS ORDERED: Promethazine/Codeine 5ml UD ORAL PRN (12:15)
--- NOTE | 2018-11-17 12:22 | Consultation ---
History of Present Illness General Date patient seen: Nov 17, 2018 Chief Complaint: Upper Respiratory Illness Present Illness HPI 73-year-old female with history of diabetes,CHF, hypertension and pacemaker presented to ER complaining of 1 week of continuous cough with phlegm production.. Denies palpitation, abdominal pain, nausea vomiting, sore throat and congestion. Denies fever and chills. Her CXR in ER showed possible pneumonia and she is admitted to telemetry for further management. Allergies: Coded Allergies: No Known Allergies (Unverified , 04/26/18) Medication History Scheduled Allopurinol* (Allopurinol*), 300 MG ORAL DAILY, (Reported) Aspirin* (Aspir 81*), 81 MG ORAL DAILY, (Reported) Hydrochlorothiazide* (Hydrochlorothiazide*), 25 MG ORAL DAILY, (Reported) Losartan Potassium* (Losartan Potassium*), 50 MG ORAL DAILY, (Reported) Sitagliptin Phos/Metformin Hcl (Janumet 50-1,000 Mg Tablet), 1 TAB ORAL TWICE A DAY, (Reported) Miscellaneous Medications Cholecalciferol (Vitamin D3) (Vitamin D), 400 UNIT PO, (Reported) Discontinued Medications Albuterol Sulfate* (Albuterol Sulfate Mdi*), 2 PUFF INH Q4H PRN for cough/ wheezing Discontinued Reason: Therapy completed Azithromycin* (Zithromax*), 250 MG ORAL DAILY Discontinued Reason: Therapy completed Hydrocodone Bit/Acetaminophen 5-325* ([place] 5-325*), 2 TAB ORAL Q6H PRN for For Pain Discontinued Reason: Therapy completed Ibuprofen* (Motrin*), 600 MG ORAL Q8H PRN for For Pain Discontinued Reason: Therapy completed Patient History Healthcare decision maker Resuscitation status Advanced Directive on File Past Medical/Surgical History Past Medical/Surgical History: (1) History of pacemaker (2) Diabetes mellitus (3) Hypertension (4) CHF (congestive heart failure) Review of Systems All Other Systems: negative except mentioned in HPI Physical Exam General Appearance: WD/WN Lines, tubes and drains: peripheral HEENT: normocephalic, atraumatic, anicteric Neck: non-tender, normal alignment Respiratory/Chest: chest wall non-tender, lungs clear, normal breath sounds Breasts: no masses Cardiovascular/Chest: normal peripheral pulses, normal rate Abdomen: normal bowel sounds, soft Genitourinary/Rectal: normal genital exam, normal rectal exam Extremities: normal range of motion, non-tender Neurologic: blacktop paver operator II-XII grossly normal Last 24 Hour Vital Signs Date Time Temp Pulse Resp B/P (MAP) Pulse Ox O2 Delivery O2 Flow Rate FiO2 11/17/18 09:00 Room Air 11/17/18 08:00 98.6 88 18 112/55 (74) 97 11/17/18 08:00 88 11/17/18 05:40 92 11/17/18 00:00 92 11/16/18 23:02 Room Air 11/16/18 22:49 75 11/16/18 22:30 98.7 86 16 125/53 99 Room Air 11/16/18 22:06 98.2 84 18 122/84 98 Room Air 11/16/18 19:46 87 18 126/57 98 Room Air 11/16/18 18:10 92 18 Room Air 11/16/18 18:10 98.2 92 18 126/69 94 Room Air 11/16/18 18:10 98.2 92 18 126/69 (88) 94 Room Air Intake and Output 11/16/18 11/17/18 19:00 07:00 # Bowel Movements 1 Laboratory Tests Test 11/16/18 20:15 11/17/18 05:19 White Blood Count 6.3 K/UL (4.8-10.8) 5.8 K/UL (4.8-10.8) Red Blood Count 5.04 M/UL (4.20-5.40) 4.67 M/UL (4.20-5.40) Hemoglobin 13.9 G/DL (12.0-16.0) 13.0 G/DL (12.0-16.0) Hematocrit 41.9 % (37.0-47.0) 38.9 % (37.0-47.0) Mean Corpuscular Volume 83 FL (80-99) 83 FL (80-99) Mean Corpuscular Hemoglobin 27.5 PG (27.0-31.0) 27.8 PG (27.0-31.0) Mean Corpuscular Hemoglobin Concent 33.1 G/DL (32.0-36.0) 33.3 G/DL (32.0-36.0) Red Cell Distribution Width 11.6 % (11.6-14.8) 12.4 % (11.6-14.8) Platelet Count 182 K/UL (150-450) 188 K/UL (150-450) Mean Platelet Volume 6.5 FL (6.5-10.1) 6.3 FL (6.5-10.1) L Neutrophils (%) (Auto) 47.4 % (45.0-75.0) 47.2 % (45.0-75.0) Lymphocytes (%) (Auto) 35.1 % (20.0-45.0) 36.0 % (20.0-45.0) Monocytes (%) (Auto) 9.4 % (1.0-10.0) 9.0 % (1.0-10.0) Eosinophils (%) (Auto) 6.9 % (0.0-3.0) H 6.5 % (0.0-3.0) H Basophils (%) (Auto) 1.3 % (0.0-2.0) 1.3 % (0.0-2.0) Prothrombin Time 10.6 SEC (9.30-11.50) Prothromb Time International Ratio 1.0 (0.9-1.1) Activated Partial Thromboplast Time 26 SEC (23-33) Sodium Level 142 MMOL/L (136-145) 143 MMOL/L (136-145) Potassium Level 3.9 MMOL/L (3.5-5.1) 4.2 MMOL/L (3.5-5.1) Chloride Level 106 MMOL/L (98-107) 108 MMOL/L (98-107) H Carbon Dioxide Level 29 MMOL/L (21-32) 28 MMOL/L (21-32) Anion Gap 7 mmol/L (5-15) 7 mmol/L (5-15) Blood Urea Nitrogen 34 mg/dL (7-18) H 32 mg/dL (7-18) H Creatinine 1.5 MG/DL (0.55-1.30) H 1.2 MG/DL (0.55-1.30) Estimat Glomerular Filtration Rate mL/min (>60) mL/min (>60) Glucose Level 123 MG/DL (74-106) H 227 MG/DL (74-106) #H Lactic Acid Level 0.90 mmol/L (0.4-2.0) Calcium Level 9.5 MG/DL (8.5-10.1) 9.2 MG/DL (8.5-10.1) Total Bilirubin 0.5 MG/DL (0.2-1.0) Aspartate Amino Transf (AST/SGOT) 26 U/L (15-37) Alanine Aminotransferase (ALT/SGPT) 29 U/L (12-78) Alkaline Phosphatase 78 U/L (46-116) Total Creatine Kinase 278 U/L (26-308) Creatine Kinase MB 3.4 NG/ML (0.0-3.6) Creatine Kinase MB Relative Index 1.2 Troponin I 0.005 ng/mL (0.000-0.056) Pro-B-Type Natriuretic Peptide 669 pg/mL (0-125) H Total Protein 7.3 G/DL (6.4-8.2) Albumin 3.6 G/DL (3.4-5.0) 3.1 G/DL (3.4-5.0) L Globulin 3.7 g/dL Albumin/Globulin Ratio 1.0 (1.0-2.7) Phosphorus Level 3.5 MG/DL (2.5-4.9) Height (Feet): 5 Height (Inches): 1.00 Weight (Pounds): 180 Medications Current Medications Medications (Trade) Dose Ordered Sig/Harsh Route PRN Reason Start Time Stop Time Status Last Admin Dose Admin Acetaminophen (Tylenol) 650 mg Q4H PRN ORAL T>100.5 11/16/18 21:00 12/16/18 20:59 Albuterol/ Ipratropium (Albuterol/ Ipratropium) 3 ml Q4H PRN HHN Shortness of Breath 11/16/18 21:00 11/21/18 20:59 Allopurinol (Allopurinol) 300 mg DAILY ORAL 11/17/18 09:00 12/17/18 08:59 11/17/18 08:55 Cefepime HCl 1 gm/ Dextrose 55 ml @ 110 mls/hr Q24H IVPB 11/18/18 01:00 11/25/18 00:59 Dextrose (Dextrose 50%) 25 ml Q30M PRN IV Hypoglycemia 11/16/18 21:00 12/16/18 20:59 Dextrose (Dextrose 50%) 50 ml Q30M PRN IV Hypoglycemia 11/16/18 21:00 12/16/18 20:59 Heparin Sodium (Porcine) (Heparin 5000 units/ml) 5,000 units EVERY 12 HOURS SUBQ 11/16/18 22:00 12/16/18 21:59 11/17/18 08:57 Hydrochlorothiazide (Hydrodiuril) 25 mg DAILY ORAL 11/17/18 09:00 12/17/18 08:59 11/17/18 08:55 Morphine Sulfate (Morphine Sulfate) 2 mg Q4H PRN IVP Severe Pain (Pain Scale 7-10) 11/16/18 21:00 11/23/18 20:59 Ondansetron HCl (Zofran) 4 mg Q6H PRN IVP Nausea & Vomiting 11/16/18 21:00 12/16/18 20:59 Polyethylene Glycol (Miralax) 17 gm DAILYPRN PRN ORAL Constipation 11/16/18 21:00 12/16/18 20:59 Promethazine HCl/ Codeine (Phenergan with Codeine) 5 ml Q4H PRN ORAL For Cough 11/17/18 12:15 12/17/18 12:14 UNV Theophylline (John-Dur) 100 mg EVERY 12 HOURS ORAL 11/17/18 21:00 12/17/18 20:59 UNV Vancomycin HCl (Vanco rx to dose) 1 ea DAILY PRN MISC . 11/16/18 21:45 12/16/18 21:44 Assessment/Plan Problem List: (1) Pneumonia ICD Codes: J18.9 - Pneumonia, unspecified organism SNOMED: 967671113 (2) Hypertension ICD Codes: I10 - Essential (primary) hypertension SNOMED: 58346614 (3) Diabetes mellitus ICD Codes: E11.9 - Type 2 diabetes mellitus without complications SNOMED: 38163189 (4) CHF (congestive heart failure) ICD Codes: I50.9 - Heart failure, unspecified SNOMED: 96156178 (5) History of pacemaker ICD Codes: Z95.0 - Presence of cardiac pacemaker SNOMED: 874489353 Assessment/Plan: respiratory treatment check sputum antitussives echocardiogram check BNP symptomatic treatment sliding scale diabetic diet. Sussy Edwards MD Nov 17, 2018 12:22
--- NOTE | 2018-11-17 12:25 | Consultation ---
History of Present Illness General Date patient seen: Nov 17, 2018 Chief Complaint: Upper Respiratory Illness Present Illness HPI 73 y/o F with hx of Dm2, CHF, HTN, nephrolithiasis s/p lithotripsy 01/2018 & 2017, s/p PPM presented to ED on 11/16 with 1 week of productive cough, weakness , chset pain. Upon admission Sat O2 94% at RA and noted to have crackles on RLL. Denied palpitation, abd pain, n/v/d, sore throat, congestion, f/c. Allergies: Coded Allergies: No Known Allergies (Unverified , 04/26/18) Medication History Scheduled Allopurinol* (Allopurinol*), 300 MG ORAL DAILY, (Reported) Aspirin* (Aspir 81*), 81 MG ORAL DAILY, (Reported) Hydrochlorothiazide* (Hydrochlorothiazide*), 25 MG ORAL DAILY, (Reported) Losartan Potassium* (Losartan Potassium*), 50 MG ORAL DAILY, (Reported) Sitagliptin Phos/Metformin Hcl (Janumet 50-1,000 Mg Tablet), 1 TAB ORAL TWICE A DAY, (Reported) Miscellaneous Medications Cholecalciferol (Vitamin D3) (Vitamin D), 400 UNIT PO, (Reported) Discontinued Medications Albuterol Sulfate* (Albuterol Sulfate Mdi*), 2 PUFF INH Q4H PRN for cough/ wheezing Discontinued Reason: Therapy completed Azithromycin* (Zithromax*), 250 MG ORAL DAILY Discontinued Reason: Therapy completed Hydrocodone Bit/Acetaminophen 5-325* (Walden 5-325*), 2 TAB ORAL Q6H PRN for For Pain Discontinued Reason: Therapy completed Ibuprofen* (Motrin*), 600 MG ORAL Q8H PRN for For Pain Discontinued Reason: Therapy completed Patient History Healthcare decision maker Resuscitation status Advanced Directive on File Patient History Narrative Pmhx: as above Shx: reviewed Fhx: non contributory Physical Exam Physical Exam Narrative General Appearance: alert, mild distress Head: normocephalic, atraumatic Eyes: bilateral eye normal inspection, bilateral eye PERRL ENT: hearing grossly normal, normal pharynx, no angioedema, normal voice, TMs + canals normal Neck: full range of motion, supple/symm/no masses Respiratory: chest non-tender, no rhonchi, no retraction, no wheezing, crackles - RLL Cardiovascular #1: regular rate, rhythm, no edema, no murmur Gastrointestinal: normal bowel sounds, non tender, soft, non-distended, no guarding, no rebound Genitourinary: normal inspection, no CVA tenderness Musculoskeletal: back normal, gait/station normal, normal range of motion, non- tender, no calf tenderness Neurologic: alert, oriented x3, responsive, motor strength/tone normal, sensory intact, speech normal Last 24 Hour Vital Signs Date Time Temp Pulse Resp B/P (MAP) Pulse Ox O2 Delivery O2 Flow Rate FiO2 11/17/18 09:00 Room Air 11/17/18 08:00 98.6 88 18 112/55 (74) 97 11/17/18 08:00 88 11/17/18 05:40 92 11/17/18 00:00 92 11/16/18 23:02 Room Air 11/16/18 22:49 75 11/16/18 22:30 98.7 86 16 125/53 99 Room Air 11/16/18 22:06 98.2 84 18 122/84 98 Room Air 11/16/18 19:46 87 18 126/57 98 Room Air 11/16/18 18:10 92 18 Room Air 11/16/18 18:10 98.2 92 18 126/69 94 Room Air 11/16/18 18:10 98.2 92 18 126/69 (88) 94 Room Air Intake and Output 11/16/18 11/17/18 19:00 07:00 # Bowel Movements 1 Laboratory Tests Test 11/16/18 20:15 11/17/18 05:19 White Blood Count 6.3 K/UL (4.8-10.8) 5.8 K/UL (4.8-10.8) Red Blood Count 5.04 M/UL (4.20-5.40) 4.67 M/UL (4.20-5.40) Hemoglobin 13.9 G/DL (12.0-16.0) 13.0 G/DL (12.0-16.0) Hematocrit 41.9 % (37.0-47.0) 38.9 % (37.0-47.0) Mean Corpuscular Volume 83 FL (80-99) 83 FL (80-99) Mean Corpuscular Hemoglobin 27.5 PG (27.0-31.0) 27.8 PG (27.0-31.0) Mean Corpuscular Hemoglobin Concent 33.1 G/DL (32.0-36.0) 33.3 G/DL (32.0-36.0) Red Cell Distribution Width 11.6 % (11.6-14.8) 12.4 % (11.6-14.8) Platelet Count 182 K/UL (150-450) 188 K/UL (150-450) Mean Platelet Volume 6.5 FL (6.5-10.1) 6.3 FL (6.5-10.1) L Neutrophils (%) (Auto) 47.4 % (45.0-75.0) 47.2 % (45.0-75.0) Lymphocytes (%) (Auto) 35.1 % (20.0-45.0) 36.0 % (20.0-45.0) Monocytes (%) (Auto) 9.4 % (1.0-10.0) 9.0 % (1.0-10.0) Eosinophils (%) (Auto) 6.9 % (0.0-3.0) H 6.5 % (0.0-3.0) H Basophils (%) (Auto) 1.3 % (0.0-2.0) 1.3 % (0.0-2.0) Prothrombin Time 10.6 SEC (9.30-11.50) Prothromb Time International Ratio 1.0 (0.9-1.1) Activated Partial Thromboplast Time 26 SEC (23-33) Sodium Level 142 MMOL/L (136-145) 143 MMOL/L (136-145) Potassium Level 3.9 MMOL/L (3.5-5.1) 4.2 MMOL/L (3.5-5.1) Chloride Level 106 MMOL/L (98-107) 108 MMOL/L (98-107) H Carbon Dioxide Level 29 MMOL/L (21-32) 28 MMOL/L (21-32) Anion Gap 7 mmol/L (5-15) 7 mmol/L (5-15) Blood Urea Nitrogen 34 mg/dL (7-18) H 32 mg/dL (7-18) H Creatinine 1.5 MG/DL (0.55-1.30) H 1.2 MG/DL (0.55-1.30) Estimat Glomerular Filtration Rate mL/min (>60) mL/min (>60) Glucose Level 123 MG/DL (74-106) H 227 MG/DL (74-106) #H Lactic Acid Level 0.90 mmol/L (0.4-2.0) Calcium Level 9.5 MG/DL (8.5-10.1) 9.2 MG/DL (8.5-10.1) Total Bilirubin 0.5 MG/DL (0.2-1.0) Aspartate Amino Transf (AST/SGOT) 26 U/L (15-37) Alanine Aminotransferase (ALT/SGPT) 29 U/L (12-78) Alkaline Phosphatase 78 U/L (46-116) Total Creatine Kinase 278 U/L (26-308) Creatine Kinase MB 3.4 NG/ML (0.0-3.6) Creatine Kinase MB Relative Index 1.2 Troponin I 0.005 ng/mL (0.000-0.056) Pro-B-Type Natriuretic Peptide 669 pg/mL (0-125) H Total Protein 7.3 G/DL (6.4-8.2) Albumin 3.6 G/DL (3.4-5.0) 3.1 G/DL (3.4-5.0) L Globulin 3.7 g/dL Albumin/Globulin Ratio 1.0 (1.0-2.7) Phosphorus Level 3.5 MG/DL (2.5-4.9) Height (Feet): 5 Height (Inches): 1.00 Weight (Pounds): 180 Medications Current Medications Medications (Trade) Dose Ordered Sig/Harsh Route PRN Reason Start Time Stop Time Status Last Admin Dose Admin Acetaminophen (Tylenol) 650 mg Q4H PRN ORAL T>100.5 11/16/18 21:00 12/16/18 20:59 Albuterol/ Ipratropium (Albuterol/ Ipratropium) 3 ml Q4H PRN HHN Shortness of Breath 11/16/18 21:00 11/21/18 20:59 Allopurinol (Allopurinol) 300 mg DAILY ORAL 11/17/18 09:00 12/17/18 08:59 11/17/18 08:55 Cefepime HCl 1 gm/ Dextrose 55 ml @ 110 mls/hr Q24H IVPB 11/18/18 01:00 11/25/18 00:59 Dextrose (Dextrose 50%) 25 ml Q30M PRN IV Hypoglycemia 11/16/18 21:00 12/16/18 20:59 Dextrose (Dextrose 50%) 50 ml Q30M PRN IV Hypoglycemia 11/16/18 21:00 12/16/18 20:59 Heparin Sodium (Porcine) (Heparin 5000 units/ml) 5,000 units EVERY 12 HOURS SUBQ 11/16/18 22:00 12/16/18 21:59 11/17/18 08:57 Hydrochlorothiazide (Hydrodiuril) 25 mg DAILY ORAL 11/17/18 09:00 12/17/18 08:59 11/17/18 08:55 Morphine Sulfate (Morphine Sulfate) 2 mg Q4H PRN IVP Severe Pain (Pain Scale 7-10) 11/16/18 21:00 11/23/18 20:59 Ondansetron HCl (Zofran) 4 mg Q6H PRN IVP Nausea & Vomiting 11/16/18 21:00 12/16/18 20:59 Polyethylene Glycol (Miralax) 17 gm DAILYPRN PRN ORAL Constipation 11/16/18 21:00 12/16/18 20:59 Vancomycin HCl (Vanco rx to dose) 1 ea DAILY PRN MISC . 11/16/18 21:45 12/16/18 21:44 Assessment/Plan Assessment/Plan: Abx: IV Vancomycin 11/16- Cefepime 11/16- Ceftriaxone x1 11/16 Assessment: Probable PNA -CXR: p Afebrile No leukocytosis Dm2 CHF HTN nephrolithiasis s/p lithotripsy 01/2018 & 02/2017 s/p PPM Plan: -Continue empiric IV Vancomycin and Cefepime #2 and add PO Azithromycin -f/u cx -Monitor CBC/CMP, temperatures -sp cx, legionella ag urine, influenza sc Thank you for this consultation. Will continue to follow along with you. Discussed with Veda Romero M.D. Nov 17, 2018 12:25
--- NOTE | 2018-11-17 14:03 | Cardiology Report ---
APPROVED REPORT sinus likely v pacing
[2018-11-17] MEDS: Azithromycin 250mg tab ORAL SCH (14:14)
--- NOTE | 2018-11-17 14:37 | Cardiology Report ---
APPROVED REPORT EXAM: Two-dimensional and M-mode echocardiogram with Doppler and color Doppler. INDICATION CAD M-Mode DIMENSIONS IVSd1.0 (0.7-1.1cm)Left Atrium (MM)3.8 (1.6-4.0cm) LVDd6.8 (3.5-5.6cm)Aortic Root2.9 (2.0-3.7cm) PWd1.0 (0.7-1.1cm)Aortic Cusp Exc.1.8 (1.5-2.0cm) IVSs1.4 cm LVDs5.8 (2.5-4.0cm) PWs1.4 cm Technically difficult study due to poor acoustical windows. Mild left ventricular enlargement . Global left ventricular hypokinesis worse in septum apical and lateral wall hypokinesis , ant and inferiro wall endocaredium is nto adequtely visualized INCREASED APICAL ECHOES NOTED, ALTHOUGH NOT TYPICAL FOR THROMBUS, ONE CANNOT BE EXCLUDED BASED ON THESE RECORDED IMAGES Left ventricular ejection fraction estimated to be 25-30%. No evidence left ventricular hypertrophy. Anterior Echo-free space, may be due to pericardial fat or effusion. All other cardiac chamber sizes are within normal limits. Aortic valve calcification with normal cusp excursion . Mildly thickened mitral valve leaflets with normal excursion. Mild mitral annulus and aortic root calcification. Pulmonic valve not well visualized. IVC at size 2.1 cm without physiologic collapse. Pacemaker wire present in the right side chambers. A color flow and spectral Doppler study was performed and revealed: No aortic insufficiency . Cannot determine Left ventricular diastolic function due to A-FIB. Trace mitral regurgitation. Mild tricuspid regurgitation. Tricuspid systolic velocities suggests peak right ventricular systolic pressure of 38mmHg,consistent with mild pulmonary hypertension. Pulmonic regurgitation present.
--- NOTE | 2018-11-17 14:50 | NUR ---
CASE MANAGEMENT:REVIEW 73 YR OLD FEMALE PRESENTED TO ER CC: WEAKNESS AND EXCESSIVE COUGHING. CXR IN ER (+) POSSIBLE PNA SI: PNEUMONIA 98.2 92 18 126/69 94% ON RA BUN+34 CR+1.5 IS: IV ROCEPHIN AZITHROMYCIN PO BLOOD CX SPUTUM CX : TO TELEMETRY
--- NOTE | 2018-11-17 15:50 | Cardiology Progress Note ---
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 lv systolic function suspected increase apcial echo noted but not typical of a thrombus evaluate cause of cough cath reproted in 2012 did not shwo any sig cad would be rather unusual b(but to impossible) for her to now have an ischemic cm tropare neg will consider perfusion imaging to see if lv function is indeed poor and if so will address again [id number] Objective Last 24 Hour Vital Signs Date Time Temp Pulse Resp B/P (MAP) Pulse Ox O2 Delivery O2 Flow Rate FiO2 11/17/18 12:00 77 11/17/18 12:00 98.2 77 18 110/62 (78) 98 11/17/18 09:00 Room Air 11/17/18 08:00 98.6 88 18 112/55 (74) 97 11/17/18 08:00 88 11/17/18 05:40 92 11/17/18 00:00 92 11/16/18 23:02 Room Air 11/16/18 22:49 75 11/16/18 22:30 98.7 86 16 125/53 99 Room Air 11/16/18 22:06 98.2 84 18 122/84 98 Room Air 11/16/18 19:46 87 18 126/57 98 Room Air 11/16/18 18:10 92 18 Room Air 11/16/18 18:10 98.2 92 18 126/69 94 Room Air 11/16/18 18:10 98.2 92 18 126/69 (88) 94 Room Air Intake and Output 11/16/18 11/17/18 19:00 07:00 # Bowel Movements 1 Laboratory Tests Test 11/16/18 20:15 11/17/18 05:19 White Blood Count 6.3 K/UL (4.8-10.8) 5.8 K/UL (4.8-10.8) Red Blood Count 5.04 M/UL (4.20-5.40) 4.67 M/UL (4.20-5.40) Hemoglobin 13.9 G/DL (12.0-16.0) 13.0 G/DL (12.0-16.0) Hematocrit 41.9 % (37.0-47.0) 38.9 % (37.0-47.0) Mean Corpuscular Volume 83 FL (80-99) 83 FL (80-99) Mean Corpuscular Hemoglobin 27.5 PG (27.0-31.0) 27.8 PG (27.0-31.0) Mean Corpuscular Hemoglobin Concent 33.1 G/DL (32.0-36.0) 33.3 G/DL (32.0-36.0) Red Cell Distribution Width 11.6 % (11.6-14.8) 12.4 % (11.6-14.8) Platelet Count 182 K/UL (150-450) 188 K/UL (150-450) Mean Platelet Volume 6.5 FL (6.5-10.1) 6.3 FL (6.5-10.1) L Neutrophils (%) (Auto) 47.4 % (45.0-75.0) 47.2 % (45.0-75.0) Lymphocytes (%) (Auto) 35.1 % (20.0-45.0) 36.0 % (20.0-45.0) Monocytes (%) (Auto) 9.4 % (1.0-10.0) 9.0 % (1.0-10.0) Eosinophils (%) (Auto) 6.9 % (0.0-3.0) H 6.5 % (0.0-3.0) H Basophils (%) (Auto) 1.3 % (0.0-2.0) 1.3 % (0.0-2.0) Prothrombin Time 10.6 SEC (9.30-11.50) Prothromb Time International Ratio 1.0 (0.9-1.1) Activated Partial Thromboplast Time 26 SEC (23-33) Sodium Level 142 MMOL/L (136-145) 143 MMOL/L (136-145) Potassium Level 3.9 MMOL/L (3.5-5.1) 4.2 MMOL/L (3.5-5.1) Chloride Level 106 MMOL/L (98-107) 108 MMOL/L (98-107) H Carbon Dioxide Level 29 MMOL/L (21-32) 28 MMOL/L (21-32) Anion Gap 7 mmol/L (5-15) 7 mmol/L (5-15) Blood Urea Nitrogen 34 mg/dL (7-18) H 32 mg/dL (7-18) H Creatinine 1.5 MG/DL (0.55-1.30) H 1.2 MG/DL (0.55-1.30) Estimat Glomerular Filtration Rate mL/min (>60) mL/min (>60) Glucose Level 123 MG/DL (74-106) H 227 MG/DL (74-106) #H Lactic Acid Level 0.90 mmol/L (0.4-2.0) Calcium Level 9.5 MG/DL (8.5-10.1) 9.2 MG/DL (8.5-10.1) Total Bilirubin 0.5 MG/DL (0.2-1.0) Aspartate Amino Transf (AST/SGOT) 26 U/L (15-37) Alanine Aminotransferase (ALT/SGPT) 29 U/L (12-78) Alkaline Phosphatase 78 U/L (46-116) Total Creatine Kinase 278 U/L (26-308) Creatine Kinase MB 3.4 NG/ML (0.0-3.6) Creatine Kinase MB Relative Index 1.2 Troponin I 0.005 ng/mL (0.000-0.056) Pro-B-Type Natriuretic Peptide 669 pg/mL (0-125) H Total Protein 7.3 G/DL (6.4-8.2) Albumin 3.6 G/DL (3.4-5.0) 3.1 G/DL (3.4-5.0) L Globulin 3.7 g/dL Albumin/Globulin Ratio 1.0 (1.0-2.7) Phosphorus Level 3.5 MG/DL (2.5-4.9) Juvenal Argueta MD Nov 17, 2018 15:50
[2018-11-17 16:00] VITALS: BP 117/75
--- NOTE | 2018-11-17 17:05 | Diagnostic Imaging Report ---
Indication: Cough Technique: One view of the chest Comparison: March 15, 2017 Findings: Body habitus limits evaluation Left chest pacemaker is again demonstrated. The heart is enlarged. No definite acute infiltrates, effusions, congestion Impression: Cardiomegaly. No definite acute process
--- NOTE | 2018-11-17 17:59 | History & Physical ---
History and Physical History & Physicial Dictated for Int Med-DR Reddy no. [id number] Dionciio Romero MD Nov 17, 2018 17:59
--- NOTE | 2018-11-17 19:00 | NUR ---
NURSE NOTES Received report from BETY Beverly, patient in stable condition, AOx4, denies pain at this time, IV site on left AC g 20, family at bedside,bed low&locked, side rails upx2, call light within reach, will continue to monitor and reassess
--- NOTE | 2018-11-17 19:19 | NUR ---
HAND-OFF: Report given to BETY Johnson.Patient is in stab le condition.
[2018-11-17 20:00] VITALS: BP 108/61
[2018-11-17] MEDS: Theophylline ER 100mg ORAL SCH (21:49)
--- NOTE | 2018-11-17 23:00 | History and Physical Report ---
DATE OF ADMISSION: 11/16/2018 CHIEF COMPLAINT: The patient is a 73-year-old female, who presents with a chief complaint of cough and chest pain. HISTORY OF PRESENT ILLNESS: Began "a few days" prior to admission. The patient began to experience cough, which was productive of a yellowish phlegm. The patient felt like she had the flu. The patient was also weak. The patient reported chest pain, which may or may not have been related to the cough. Chest pain did not radiate to the left arm or to the jaw. The patient presented to [facility] complaining of cough. The patient was found to have oxygen saturation 94% on room air. The patient was admitted for hypoxia and chest pain to rule out acute coronary syndrome. REVIEW OF SYSTEMS: CONSTITUTIONAL: The patient denies weight loss or weight gain. The patient denies fevers or chills. HEENT: The patient denies ear or throat pain. The patient denies headache. CARDIOVASCULAR: The patient complains of chest pain as above. The patient denies palpitations. ABDOMEN: The patient denies nausea or vomiting. CHEST: The patient complains of productive cough as above. The patient denies wheezes. ABDOMEN: The patient denies nausea, vomiting, diarrhea, or constipation. GENITOURINARY: The patient denies dysuria or increased frequency of urination. NEUROMUSCULAR: The patient complains of generalized weakness. The patient denies seizures. PAST MEDICAL HISTORY: Significant for, 1. Type 2 diabetes. 2. Congestive heart failure. 3. Hypertension. 4. Second degree 2:1 AV block, status post pacemaker implantation. 5. History of gout. PAST SURGICAL HISTORY: Significant for, 1. Cystoscopy in January 2017 and again in February 2017 for renal calculi. 2. Total abdominal hysterectomy. 3. Pacemaker implantation in March 2017 with subsequent atrial lead repositioning. CURRENT MEDICATIONS: 1. Allopurinol 300 mg p.o. daily. 2. Aspirin 81 mg p.o. daily. 3. Vitamin D 400 units p.o. daily. 4. Hydrochlorothiazide 25 mg p.o. daily. 5. Losartan 50 mg p.o. daily. 6. Sitagliptin/metformin mg 1 tab p.o. twice daily. ALLERGIES: No known drug allergies. SOCIAL HISTORY: The patient is . The patient denies tobacco or alcohol use. PHYSICAL EXAMINATION: VITAL SIGNS: Temperature 98.2 degrees, respirations 18, pulse 92, blood pressure 126/69, and pulse ox 94% on room air. GENERAL: The patient is well-developed and well-nourished female, who is in moderate respiratory distress. HEENT: Eyes, pupils equal and responsive to light and accommodation. Extraocular movements are intact. NECK: Supple without lymphadenopathy. CHEST: Lungs are clear to auscultation bilaterally without wheezes or rales. CARDIOVASCULAR: Regular rate. S1 and S2 normal without murmurs, rubs, or gallops. ABDOMEN: Soft, nontender, and nondistended. Positive bowel sounds. No evidence of hepatosplenomegaly. Currently, no rebound or guarding noted. EXTREMITIES: Negative for clubbing, cyanosis, or edema. RECTAL/GENITAL: Not performed. NEUROLOGIC: Cranial nerves II through XII are grossly intact without focal deficits. Motor strength is 5/5 bilaterally intact. Deep tendon reflexes are 2+ plantar. LABORATORY AND IMAGING STUDIES: WBC 6.3, hemoglobin 13.9, hematocrit 41.9, and platelets 182,000. Sodium 142, potassium 3.9, chloride 106, CO2 29, BUN 34, creatinine 1.5, and glucose 123. Troponin 0.005. BNP elevated at 669. Chest x-ray was reported as cardiomegaly with no acute disease. ASSESSMENT: This is a 73-year-old female with: 1. Chest pain. 2. Cough. 3. Hypoxia. 4. Second-degree AV block. 5. Congestive heart failure. 6. Diabetes type 2. 7. Hypertension. 8. Gout. 9. Pacemaker in situ. TREATMENT: 1. Chest pain. A Cardiology consultation has been obtained with Dr. Juvenal Argueta. We will follow recommendations of Cardiology. Serial troponin levels will be performed. 2. Cough. A Pulmonary consultation has been obtained with Dr. Sussy Edwards. An initial chest x-ray was reported as no acute disease. The patient has been started empirically on azithromycin and cefepime for possible bronchitis. 3. Second-degree AV block. The patient is status post pacemaker implantation in March 2017. 4. Congestive heart failure. As above, a Cardiology consultation has been obtained with Dr. Juvenal Argueta. 5. Diabetes type 2. Continue sitagliptin/metformin as above. 6. Hypertension. Continue hydrochlorothiazide as above. 7. Gout. Continue allopurinol as above. 8. Pacemaker in situ. Dionicio Romero M.D. DR: EMA JOB#: [id number] CC:
--- NOTE | 2018-11-17 23:30 | Consultation ---
DATE OF CONSULTATION: 11/17/2018 CARDIOLOGY CONSULTATION CONSULTING PHYSICIAN: Juvenal Argueta M.D. REFERRING PHYSICIANS: 1. Alonso Reddy M.D. 2. Sussy Edwards M.D. REASON FOR REFERRAL: Shortness of breath and coughing. HISTORY OF PRESENT ILLNESS: This is an elderly female who is known to me, though I have not seen her in the past year. She presented to the hospital emergency room because of complaints of shortness of breath that has been going on for some time to the point that when she coughs, she now has pain in the chest wall area. She has had some shortness of breath, but according to herself, that pre-dates placement of a pacemaker that occurred a year and a half ago, not something recently. She has had shortness of breath on exertion. There is no shortness of breath at rest. There is no PND or orthopnea and she uses two pillows. There is no dizziness or lightheadedness. She denies any heart pounding or palpitations. PAST MEDICAL HISTORY: Bilateral renal calculi, status post bilateral ureteroscopy and stent placement with subsequent removal; history of AV block with permanent pacemaker implantation; abnormal cardiac enzymes secondary to demand within normal coronaries documented in 2013 by cardiac catheterization at [facility]; diabetes mellitus; nephrolithiasis; gout; systemic hypertension; urinary tract infection; history of right breast lumpectomy; hysterectomy as well as cystoscopy. ALLERGIES: She is not allergic to any medication. SOCIAL HISTORY: She does not smoke. Does not use drugs. Does not use alcoholic beverages. REVIEW OF SYSTEMS: GASTROINTESTINAL: Positive for constipation. No black or bloody stool. GENITOURINARY: Negative. PULMONARY: Positive for cough sputum production. No wheezing. CONSTITUTIONAL: No fever, chills, or night sweats. PHYSICAL EXAMINATION: VITAL SIGNS: Blood pressure is anywhere between 110/62 to 126/69, and heart rate in the 70s. GENERAL: Shows to be a middle-aged female, in no respiratory distress. LUNGS: Relatively clear to auscultation and percussion. CARDIAC: S1 is normal. S2 is normal. Regular rate and rhythm. No heaves or thrills noted. ABDOMEN: Soft and nontender. Positive bowel sounds. EXTREMITIES: There is no clubbing or cyanosis nor is there any edema. NEUROLOGICAL: She is awake, alert, and responsive. LABORATORY VALUES: Her blood tests show white count of 5.8, hemoglobin of 13, and platelet count of 188,000. Sodium is 142, potassium 4.3, chloride 108, bicarbonate 28, BUN 32, creatinine 1.2, and glucose of 227. Lactic acid was 0.9 at the time of admission. Phosphorus of 3.1 and calcium is 9.2. Albumin of 3.1. Troponin 0.05. ProBNP is only 669. INR 1 and PTT of 26. MEDICATIONS: Medications that she apparently reportedly takes at home include allopurinol, aspirin, hydrochlorothiazide, losartan, and Janumet. ASSESSMENT AND PLAN: 1. Cough. 2. Questionable left ventricular systolic dysfunction. 3. Permanent pacemaker implantation. 4. Increased LV apical echoes. 5. Exertional shortness of breath. This patient was seen in cardiac consultation. She does have some chronic shortness of breath with cough recently. She has not had a chest x-ray to review, which she should have. I will order the chest x-ray. We will order an EKG. The EKG showed ventricular pacing, and therefore, nondiagnostic. She has had echocardiogram before that had shown normal left ventricular systolic function. At this time, the echocardiogram was technically difficult and appears to show some global hypokinesis with increased apical echoes that needs to be clarified and may be repeated, possibly a nuclear medicine scan should be performed to evaluate the systolic function. She may require further testing to see if she does have indeed any left ventricular systolic function. Increased apical echoes are not typical of thrombus, and of course, unfortunately that cannot be entirely excluded, maybe if ejection fraction can be reevaluated with nuclear medicine study, if truly will consider other alternatives. Juvenal Argueta M.D. DR: GABBY JOB#: [id number] CC:
[2018-11-18] VITALS: BP 109/61
[2018-11-18] MEDS ORDERED: Cefepime 1gm/D5W 55ml IVPB SCH ×2 (01:00)
[2018-11-18 04:00] VITALS: BP 120/70
--- NOTE | 2018-11-18 07:12 | NUR ---
NURSE NOTES: Received patient and report from Elizabeth ALBERT in bed resting, denies any pain, Patient is AAO X4, all needs anticipated and met. Bed is on lowest position with bedside rails up x2. Brakes engaged for safety. Call light is within reach. Will continue with the plan of care.
--- NOTE | 2018-11-18 07:31 | NUR ---
HAND-OFF: Report given to BETY Beverly, patient in stable comdition, plan of care endorsed.
[2018-11-18 08:00] VITALS: BP 117/75
[2018-11-18] MEDS: Theophylline ER 100mg ORAL SCH ×2 (08:17→22:00)
[2018-11-18] MEDS: Azithromycin 250mg tab ORAL SCH (08:17)
[2018-11-18] MEDS: Heparin 5000 units/ml inj SUBQ SCH ×2 (08:18→22:02)
--- NOTE | 2018-11-18 10:40 | NUR ---
CASE MANAGEMENT:REVIEW 11/18/18 SI: CHEST PAIN. COUGH. CHF 2ND DEGREE AV BLOCK...S/P PACEMAKER 97.6 80 19 117/75 97% ON RA IS: IV VANCOMYCIN Q24 IV CEFEPIME Q24 ELLEN-DUR PO Q12 AZITHROMAX PO Q24 ALLOPURINOL PO QD HCTZ PO QD HEPARIN SQ Q12 : TELEMETRY STATUS DCP: PATIENT IS FROM HOME PLAN: F/U ON LEGIONELLA ANTIGEN AND INFLUENZA A&B
[2018-11-18] MEDS ORDERED: Vancomycin 1gm/D5W 275ml IVPB SCH ×2 (11:00)
--- NOTE | 2018-11-18 11:32 | Pulmonology Progress Note ---
Assessment/Plan Problems: (1) Acute bronchitis (2) EF 20%-30% (3) Hypertension (4) Diabetes mellitus (5) CHF (congestive heart failure) (6) History of pacemaker Assessment/Plan improving cardiology note reviewed might need perfusion study symptomatic treatment check electrolytes Subjective ROS Limited/Unobtainable: No Constitutional: Reports: no symptoms HEENT: Repors: no symptoms Respiratory: Reports: no symptoms Cardiovascular: Reports: no symptoms Allergies: Coded Allergies: No Known Allergies (Unverified , 04/26/18) Objective Last 24 Hour Vital Signs Date Time Temp Pulse Resp B/P (MAP) Pulse Ox O2 Delivery O2 Flow Rate FiO2 11/18/18 09:00 Room Air 11/18/18 08:00 97.6 80 19 117/75 (89) 97 11/18/18 08:00 82 11/18/18 04:00 97.9 98 20 120/70 (87) 99 11/18/18 03:58 78 11/18/18 00:00 98.1 84 18 109/61 (77) 98 11/18/18 00:00 86 11/17/18 21:00 Room Air 11/17/18 20:00 98.1 76 18 108/61 (77) 95 11/17/18 20:00 93 11/17/18 16:00 97.9 90 18 117/75 (89) 99 11/17/18 16:00 90 11/17/18 12:00 77 11/17/18 12:00 98.2 77 18 110/62 (78) 98 Intake and Output 11/17/18 11/18/18 19:00 07:00 Intake Total 920 ml 370 ml Balance 920 ml 370 ml Intake Oral 920 ml 120 ml Other 250 ml # Voids 4 3 # Bowel Movements 1 1 Objective no cough, no SOb General Appearance: WD/WN HEENT: normocephalic, atraumatic Respiratory/Chest: chest wall non-tender, no respiratory distress Breasts: no masses Cardiovascular: normal rate, no gallop/murmur Abdomen: normal bowel sounds Microbiology Date/Time Source Procedure Growth Status 11/16/18 20:20 Blood Blood Culture - Preliminary NO GROWTH AFTER 24 HOURS Resulted 11/16/18 20:15 Blood Blood Culture - Preliminary NO GROWTH AFTER 24 HOURS Resulted Current Medications Medications (Trade) Dose Ordered Sig/Harsh Route PRN Reason Start Time Stop Time Status Last Admin Dose Admin Acetaminophen (Tylenol) 650 mg Q4H PRN ORAL T>100.5 11/16/18 21:00 12/16/18 20:59 Albuterol/ Ipratropium (Albuterol/ Ipratropium) 3 ml Q4H PRN HHN Shortness of Breath 11/16/18 21:00 11/21/18 20:59 Allopurinol (Allopurinol) 300 mg DAILY ORAL 11/17/18 09:00 12/17/18 08:59 11/18/18 08:17 Azithromycin (Zithromax) 500 mg DAILY ORAL 11/17/18 14:00 11/24/18 13:59 11/18/18 08:17 Cefepime HCl 1 gm/ Dextrose 55 ml @ 110 mls/hr Q24H IVPB 11/18/18 01:00 11/25/18 00:59 11/18/18 00:22 Dextrose (Dextrose 50%) 25 ml Q30M PRN IV Hypoglycemia 11/18/18 11:30 12/18/18 11:29 Dextrose (Dextrose 50%) 50 ml Q30M PRN IV Hypoglycemia 11/18/18 11:30 12/18/18 11:29 Heparin Sodium (Porcine) (Heparin 5000 units/ml) 5,000 units EVERY 12 HOURS SUBQ 11/16/18 22:00 12/16/18 21:59 11/18/18 08:18 Hydrochlorothiazide (Hydrodiuril) 25 mg DAILY ORAL 11/17/18 09:00 12/17/18 08:59 11/18/18 08:17 Insulin Aspart (NovoLOG) BEFORE MEALS AND HS SUBQ 11/18/18 11:30 12/18/18 11:29 Morphine Sulfate (Morphine Sulfate) 2 mg Q4H PRN IVP Severe Pain (Pain Scale 7-10) 11/16/18 21:00 11/23/18 20:59 Ondansetron HCl (Zofran) 4 mg Q6H PRN IVP Nausea & Vomiting 11/16/18 21:00 12/16/18 20:59 Polyethylene Glycol (Miralax) 17 gm DAILYPRN PRN ORAL Constipation 11/16/18 21:00 12/16/18 20:59 Promethazine HCl/ Codeine (Phenergan with Codeine) 5 ml Q4H PRN ORAL For Cough 11/17/18 12:15 12/17/18 12:14 Theophylline (John-Dur) 100 mg EVERY 12 HOURS ORAL 11/17/18 21:00 12/17/18 20:59 11/18/18 08:17 Vancomycin HCl (Vanco rx to dose) 1 ea DAILY PRN MISC . 11/16/18 21:45 12/16/18 21:44 Vancomycin HCl 1 gm/Dextrose 275 ml @ 183.708 mls/hr Q24H IVPB 11/18/18 11:00 11/23/18 10:59 Sussy Edwards MD Nov 18, 2018 11:32
--- NOTE | 2018-11-18 11:43 | Internal Med Progress Note ---
Subjective Date of Service: Nov 18, 2018 Physician Name Dionicio Romero Attending Physician Alonso Reddy MD Current Medications Medications (Trade) Dose Ordered Sig/Harsh Route PRN Reason Start Time Stop Time Status Last Admin Dose Admin Acetaminophen (Tylenol) 650 mg Q4H PRN ORAL T>100.5 11/16/18 21:00 12/16/18 20:59 Albuterol/ Ipratropium (Albuterol/ Ipratropium) 3 ml Q4H PRN HHN Shortness of Breath 11/16/18 21:00 11/21/18 20:59 Allopurinol (Allopurinol) 300 mg DAILY ORAL 11/17/18 09:00 12/17/18 08:59 11/18/18 08:17 Azithromycin (Zithromax) 500 mg DAILY ORAL 11/17/18 14:00 11/24/18 13:59 11/18/18 08:17 Cefepime HCl 1 gm/ Dextrose 55 ml @ 110 mls/hr Q24H IVPB 11/18/18 01:00 11/25/18 00:59 11/18/18 00:22 Dextrose (Dextrose 50%) 25 ml Q30M PRN IV Hypoglycemia 11/18/18 11:30 12/18/18 11:29 Dextrose (Dextrose 50%) 50 ml Q30M PRN IV Hypoglycemia 11/18/18 11:30 12/18/18 11:29 Heparin Sodium (Porcine) (Heparin 5000 units/ml) 5,000 units EVERY 12 HOURS SUBQ 11/16/18 22:00 12/16/18 21:59 11/18/18 08:18 Hydrochlorothiazide (Hydrodiuril) 25 mg DAILY ORAL 11/17/18 09:00 12/17/18 08:59 11/18/18 08:17 Insulin Aspart (NovoLOG) BEFORE MEALS AND HS SUBQ 11/18/18 11:30 12/18/18 11:29 Morphine Sulfate (Morphine Sulfate) 2 mg Q4H PRN IVP Severe Pain (Pain Scale 7-10) 11/16/18 21:00 11/23/18 20:59 Ondansetron HCl (Zofran) 4 mg Q6H PRN IVP Nausea & Vomiting 11/16/18 21:00 12/16/18 20:59 Polyethylene Glycol (Miralax) 17 gm DAILYPRN PRN ORAL Constipation 11/16/18 21:00 12/16/18 20:59 Promethazine HCl/ Codeine (Phenergan with Codeine) 5 ml Q4H PRN ORAL For Cough 11/17/18 12:15 12/17/18 12:14 Theophylline (John-Dur) 100 mg EVERY 12 HOURS ORAL 11/17/18 21:00 12/17/18 20:59 11/18/18 08:17 Vancomycin HCl (Vanco rx to dose) 1 ea DAILY PRN MISC . 11/16/18 21:45 12/16/18 21:44 Vancomycin HCl 1 gm/Dextrose 275 ml @ 183.708 mls/hr Q24H IVPB 11/18/18 11:00 11/23/18 10:59 Allergies: Coded Allergies: No Known Allergies (Unverified , 04/26/18) ROS Limited/Unobtainable: No Constitutional: Reports: no symptoms HEENT: Reports: no symptoms Cardiovascular: Reports: chest pain Respiratory: Reports: shortness of breath Gastrointestinal/Abdominal: Reports: no symptoms Genitourinary: Reports: no symptoms Neurologic/Psychiatric: Reports: no symptoms Subjective 73 YO F admitted with cough and chest pain. Now purulent bronchitis and CHF. Cover for Int Med-DR Reddy Objective Last Vital Signs Date Time Temp Pulse Resp B/P (MAP) Pulse Ox O2 Delivery O2 Flow Rate FiO2 11/18/18 09:00 Room Air 11/18/18 08:00 97.6 80 19 117/75 (89) 97 General Appearance: WD/WN, no apparent distress, alert EENT: PERRL/EOMI, normal ENT inspection Neck: non-tender, normal alignment, supple, normal inspection Cardiovascular: normal peripheral pulses, normal rate, regular rhythm, no gallop/murmur, no JVD Respiratory/Chest: chest wall non-tender, no accessory muscle use, crackles/ rales, expiratory wheezing Abdomen: normal bowel sounds, non tender, soft, no organomegaly, no mass Extremities: normal range of motion, non-tender Neurologic: dna sequencing associate II-XII grossly normal, no motor/sensory deficits Skin: normal pigmentation, warm/dry Microbiology Date/Time Source Procedure Growth Status 11/16/18 20:20 Blood Blood Culture - Preliminary NO GROWTH AFTER 24 HOURS Resulted 11/16/18 20:15 Blood Blood Culture - Preliminary NO GROWTH AFTER 24 HOURS Resulted Intake and Output 11/17/18 11/18/18 19:00 07:00 Intake Total 920 ml 370 ml Balance 920 ml 370 ml Intake Oral 920 ml 120 ml Other 250 ml # Voids 4 3 # Bowel Movements 1 1 Assessment/Plan Problem List: (1) PNA (pneumonia) Assessment & Plan: Continue azithromycin (oral), cefepime and vanco. See pulmonary note=DR Edwards (2) Pacemaker (3) Gout Assessment & Plan: continue allopurinol (4) SOB (shortness of breath) (5) Hypoxia (6) Cough (7) Acute purulent bronchitis (8) Chest pain with moderate risk of acute coronary syndrome (9) CHF (congestive heart failure) Assessment & Plan: LVEF=25-30%. See cardiology note=Dr Argueta. (10) EF 20%-30% (11) Diabetes mellitus Assessment & Plan: Continue novolog sliding scale (12) Hypertension Assessment & Plan: Continue hydrochlorothiazide. (13) Second degree atrioventricular block Assessment & Plan: S/P pacemaker Status: not improved Dionicio Romero MD Nov 18, 2018 11:43
[2018-11-18 12:00] VITALS: BP 115/84
--- NOTE | 2018-11-18 12:04 | GI Initial Consult Note ---
History of Present Illness General Date patient seen: Nov 18, 2018 Time patient seen: 12:03 Reason for Hospitalization: Upper Respiratory Illness Referring physician: PATT LUTHER Reason for Consultation: Plan colonoscopy Present Illness HPI 73-year-old female with history of diabetes,CHF, hypertension and pacemaker all controlled here complaining of 1 week of continuous cough with phlegm production. Patient reports that she has been feeling weak for the past few days after coughing excessively. Reports one episode of chest pain after coughing, without radiation to arm or jaw. Denies palpitation, abdominal pain, nausea vomiting, sore throat and congestion. Denies fever and chills. Patient has oxygenation of 94% and appears weak. Denies unilateral or generalized weakness, slurred speech, headache and dizziness. Crackles are noted in the right lower lobe. Patient speaking in full sentences and in mild distress. Has not taken any medication for symptom relief. Dr Luther is patient's primary care physician and is aware of the status of the patient. GI consulted for planned colonoscopy. Patient was seen, awake alert oriented x4 no apparent distress. No active signs of nausea or vomiting. The patient presents today with complaint of pain of continuous productive cough with phlegm. Labs reviewed; no anemia, no leukocytosis, no transaminitis. The patient states that she had a colonoscopy approximately 3 years ago noted with multiple colonic polyps. The patient noted that she had an appointment scheduled with Dr. Ramirez tomorrow for scheduled colonoscopy. Home Meds Reported Medications Cholecalciferol (Vitamin D3) (VITAMIN D) 400 Unit Capsule, 400 UNIT PO, CAP 11/16/18 Aspirin* (ASPIR 81*) 81 Mg Tablet.dr, 81 MG ORAL DAILY, TAB 11/16/18 Hydrochlorothiazide* (HYDROCHLOROTHIAZIDE*) 25 Mg Tablet, 25 MG ORAL DAILY, TAB 03/12/17 Sitagliptin Phos/Metformin Hcl (JANUMET 50-1,000 MG TABLET) 1 Each Tablet, 1 TAB ORAL TWICE A DAY, TAB 03/12/17 Losartan Potassium* (LOSARTAN POTASSIUM*) 50 Mg Tablet, 50 MG ORAL DAILY, TAB 05/10/13 Allopurinol* (ALLOPURINOL*) 300 Mg Tablet, 300 MG ORAL DAILY, TAB 05/10/13 Discontinued Scripts Ibuprofen* (MOTRIN*) 600 Mg Tablet, 600 MG ORAL Q8H PRN for For Pain, #10 TAB 0 Refills Prov:BALDERAS,JOO M.D 05/05/18 Hydrocodone Bit/Acetaminophen 5-325* (NORCO 5-325*) 1 Each Tablet, 2 TAB ORAL Q6H PRN for For Pain, #20 TAB 0 Refills Prov:JOO BALDERAS M.D 05/05/18 Azithromycin* (ZITHROMAX*) 250 Mg Tablet, 250 MG ORAL DAILY, #6 TAB 0 Refills Take two tables once daily for 1 day, then one tablet once daily for 4 days. Prov:Felton Barnett MD 04/26/18 Albuterol Sulfate* (ALBUTEROL SULFATE MDI*) 8.5 Gm Hfa.aer.ad, 2 PUFF INH Q4H PRN for cough/wheezing, #1 EA 0 Refills Prov:Felton Barnett MD 04/26/18 Med list reviewed/reconciled: Yes Allergies: Coded Allergies: No Known Allergies (Unverified , 04/26/18) Patient History PMH Narrative Past Medical History: see triage record Past Surgical History: unable to obtain Pertinent Family History: none Now: No Immunizations: UTD Reviewed Nursing Documentation: PMH: Agreed; PSxH: Agreed Nursing Documentation-PMH Past Medical History: No History, Except For Hx Cardiac Problems: Yes Hx Hypertension: Yes Hx Pacemaker: Yes Hx Asthma: No Hx COPD: No Hx Diabetes: Yes Hx Cancer: No Hx Gastrointestinal Problems: Yes - lithotripsy 01/26, 02/21/2017 at [facility] Hx Dialysis: No Hx Neurological Problems: No Hx Cerebrovascular Accident: No Hx Seizures: No Social History: Denies: smoking, alcohol use, drug use, other Review of Systems All Other Systems: negative except mentioned in HPI Physical Exam Vital Signs Date Time Temp Pulse Resp B/P (MAP) Pulse Ox O2 Delivery O2 Flow Rate FiO2 11/16/18 18:10 98.2 92 18 126/69 (88) 94 Room Air Sp02 EP Interpretation: reviewed, normal General Appearance: well appearing, no apparent distress, alert Head: normocephalic EENT: PERRL/EOMI, normal ENT inspection Neck: supple Respiratory: normal breath sounds, no respiratory distress Cardiovascular: normal rate Gastrointestinal: normal inspection, non tender, soft, normal bowel sounds, non -distended, other - Abdomen is soft, nontender, nondistended. No signs of any rebounding or guarding. Rectal: deferred Genitourinary: no CVA tenderness Musculoskeletal: normal inspection, back normal Neurologic: normal inspection, alert, oriented x3, responsive Psychiatric: normal inspection, judgement/insight normal, memory normal Skin: normal inspection, normal color, no rash, warm/dry, palpation normal, well hydrated Lymphatic: normal inspection, no adenopathy Current Medications Current Medications Medications (Trade) Dose Ordered Sig/Harsh Route PRN Reason Start Time Stop Time Status Last Admin Dose Admin Acetaminophen (Tylenol) 650 mg Q4H PRN ORAL T>100.5 11/16/18 21:00 12/16/18 20:59 Albuterol/ Ipratropium (Albuterol/ Ipratropium) 3 ml Q4H PRN HHN Shortness of Breath 11/16/18 21:00 11/21/18 20:59 Allopurinol (Allopurinol) 300 mg DAILY ORAL 11/17/18 09:00 12/17/18 08:59 11/18/18 08:17 Azithromycin (Zithromax) 500 mg DAILY ORAL 11/17/18 14:00 11/24/18 13:59 11/18/18 08:17 Cefepime HCl 1 gm/ Dextrose 55 ml @ 110 mls/hr Q24H IVPB 11/18/18 01:00 11/25/18 00:59 11/18/18 00:22 Dextrose (Dextrose 50%) 25 ml Q30M PRN IV Hypoglycemia 11/18/18 11:30 12/18/18 11:29 Dextrose (Dextrose 50%) 50 ml Q30M PRN IV Hypoglycemia 11/18/18 11:30 12/18/18 11:29 Heparin Sodium (Porcine) (Heparin 5000 units/ml) 5,000 units EVERY 12 HOURS SUBQ 11/16/18 22:00 12/16/18 21:59 11/18/18 08:18 Hydrochlorothiazide (Hydrodiuril) 25 mg DAILY ORAL 11/17/18 09:00 12/17/18 08:59 11/18/18 08:17 Insulin Aspart (NovoLOG) BEFORE MEALS AND HS SUBQ 11/18/18 11:30 12/18/18 11:29 Morphine Sulfate (Morphine Sulfate) 2 mg Q4H PRN IVP Severe Pain (Pain Scale 7-10) 11/16/18 21:00 11/23/18 20:59 Ondansetron HCl (Zofran) 4 mg Q6H PRN IVP Nausea & Vomiting 11/16/18 21:00 12/16/18 20:59 Polyethylene Glycol (Miralax) 17 gm DAILYPRN PRN ORAL Constipation 11/16/18 21:00 12/16/18 20:59 Promethazine HCl/ Codeine (Phenergan with Codeine) 5 ml Q4H PRN ORAL For Cough 11/17/18 12:15 12/17/18 12:14 Theophylline (John-Dur) 100 mg EVERY 12 HOURS ORAL 11/17/18 21:00 12/17/18 20:59 11/18/18 08:17 Vancomycin HCl (Vanco rx to dose) 1 ea DAILY PRN MISC . 11/16/18 21:45 12/16/18 21:44 Vancomycin HCl 1 gm/Dextrose 275 ml @ 183.708 mls/hr Q24H IVPB 11/18/18 11:00 11/23/18 10:59 GI: Plan Problems: (1) Colon polyps (2) Diabetes mellitus Plan No plans for any inpatient GI procedures. Patient to follow-up with us as outpatient to schedule her colonoscopy. Follow-up pulmonary recommendations Symptomatic treatment Advance to regular diet, patient is tolerating Zofran as needed PPI Follow labs Discussed with Dr. Ramirez. Thank you for this patient referral, we will follow. The patient was seen and examined at bedside and all new and available data was reviewed in the patients chart. I agree with the above findings, impression and plan. (Patient seen earlier today. Signature stamp does not reflect patient encounter time.). - MD Ericka Welch,[facility] TERRAZZO INSTALLER Nov 18, 2018 12:04
--- NOTE | 2018-11-18 12:12 | Infectious Diseases Prog Note ---
Assessment/Plan Assessment/Plan Abx: IV Vancomycin 11/16- Cefepime 11/16- Ceftriaxone x1 11/16 Assessment: Probable early PNA vs acute bronchitis -CXR: Cardiomegaly. No definite acute process Afebrile No leukocytosis NELLY, improving Dm2 CHF HTN nephrolithiasis s/p lithotripsy 01/2018 & 02/2017 s/p PPM Plan: -Switch empiric IV Vancomycin #3, Cefepime #3 and PO Azithromycin #2 to PO Levaquin -11/16 SP Ceftriaxone x1 -f/u cx -Monitor CBC/CMP, temperatures -f/u sp cx, legionella ag urine, influenza sc Thank you for this consultation. Will continue to follow along with you. Discussed with RN Subjective Allergies: Coded Allergies: No Known Allergies (Unverified , 04/26/18) Subjective afebrile no leukocytosis Objective Vital Signs Last 24 Hour Vital Signs Date Time Temp Pulse Resp B/P (MAP) Pulse Ox O2 Delivery O2 Flow Rate FiO2 11/18/18 09:00 Room Air 11/18/18 08:00 97.6 80 19 117/75 (89) 97 11/18/18 08:00 82 11/18/18 04:00 97.9 98 20 120/70 (87) 99 11/18/18 03:58 78 11/18/18 00:00 98.1 84 18 109/61 (77) 98 11/18/18 00:00 86 11/17/18 21:00 Room Air 11/17/18 20:00 98.1 76 18 108/61 (77) 95 11/17/18 20:00 93 11/17/18 16:00 97.9 90 18 117/75 (89) 99 11/17/18 16:00 90 Height (Feet): 5 Height (Inches): 1.00 Weight (Pounds): 184 Objective General Appearance: alert, mild distress Head: normocephalic, atraumatic Eyes: bilateral eye normal inspection, bilateral eye PERRL ENT: hearing grossly normal, normal pharynx, no angioedema, normal voice, TMs + canals normal Neck: full range of motion, supple/symm/no masses Respiratory: chest non-tender, no rhonchi, no retraction, no wheezing, crackles - RLL Cardiovascular #1: regular rate, rhythm, no edema, no murmur Gastrointestinal: normal bowel sounds, non tender, soft, non-distended, no guarding, no rebound Genitourinary: normal inspection, no CVA tenderness Musculoskeletal: back normal, gait/station normal, normal range of motion, non- tender, no calf tenderness Neurologic: alert, oriented x3, responsive, motor strength/tone normal, sensory intact, speech normal Microbiology Date/Time Source Procedure Growth Status 11/16/18 20:20 Blood Blood Culture - Preliminary NO GROWTH AFTER 24 HOURS Resulted 11/16/18 20:15 Blood Blood Culture - Preliminary NO GROWTH AFTER 24 HOURS Resulted Current Medications Medications (Trade) Dose Ordered Sig/Harsh Route PRN Reason Start Time Stop Time Status Last Admin Dose Admin Acetaminophen (Tylenol) 650 mg Q4H PRN ORAL T>100.5 11/16/18 21:00 12/16/18 20:59 Albuterol/ Ipratropium (Albuterol/ Ipratropium) 3 ml Q4H PRN HHN Shortness of Breath 11/16/18 21:00 11/21/18 20:59 Allopurinol (Allopurinol) 300 mg DAILY ORAL 11/17/18 09:00 12/17/18 08:59 11/18/18 08:17 Azithromycin (Zithromax) 500 mg DAILY ORAL 11/17/18 14:00 11/24/18 13:59 11/18/18 08:17 Cefepime HCl 1 gm/ Dextrose 55 ml @ 110 mls/hr Q24H IVPB 11/18/18 01:00 11/25/18 00:59 11/18/18 00:22 Dextrose (Dextrose 50%) 25 ml Q30M PRN IV Hypoglycemia 11/18/18 11:30 12/18/18 11:29 Dextrose (Dextrose 50%) 50 ml Q30M PRN IV Hypoglycemia 11/18/18 11:30 12/18/18 11:29 Heparin Sodium (Porcine) (Heparin 5000 units/ml) 5,000 units EVERY 12 HOURS SUBQ 11/16/18 22:00 12/16/18 21:59 11/18/18 08:18 Hydrochlorothiazide (Hydrodiuril) 25 mg DAILY ORAL 11/17/18 09:00 12/17/18 08:59 11/18/18 08:17 Insulin Aspart (NovoLOG) BEFORE MEALS AND HS SUBQ 11/18/18 11:30 12/18/18 11:29 Morphine Sulfate (Morphine Sulfate) 2 mg Q4H PRN IVP Severe Pain (Pain Scale 7-10) 11/16/18 21:00 11/23/18 20:59 Ondansetron HCl (Zofran) 4 mg Q6H PRN IVP Nausea & Vomiting 11/16/18 21:00 12/16/18 20:59 Polyethylene Glycol (Miralax) 17 gm DAILYPRN PRN ORAL Constipation 11/16/18 21:00 12/16/18 20:59 Promethazine HCl/ Codeine (Phenergan with Codeine) 5 ml Q4H PRN ORAL For Cough 11/17/18 12:15 12/17/18 12:14 Theophylline (John-Dur) 100 mg EVERY 12 HOURS ORAL 11/17/18 21:00 12/17/18 20:59 11/18/18 08:17 Vancomycin HCl (Vanco rx to dose) 1 ea DAILY PRN MISC . 11/16/18 21:45 12/16/18 21:44 Vancomycin HCl 1 gm/Dextrose 275 ml @ 183.708 mls/hr Q24H IVPB 11/18/18 11:00 11/23/18 10:59 Veda Arellano M.D. Nov 18, 2018 12:12
[2018-11-18] MEDS: NovoLOG Insulin Flexpen SUBQ SCH ×3 (12:35→22:03)
--- NOTE | 2018-11-18 12:47 | NUR ---
*-* INSURANCE *-* ALL AVAILABLE CLINICALS HAVE BEEN FAXED TO: LEENA APONTEM:LAURA Farnsworth; [phone] F: [phone]
[2018-11-18 16:00] VITALS: BP 123/84
--- NOTE | 2018-11-18 19:32 | NUR ---
HAND-OFF: Report given to BETY Causey.Patient is in stable condition.
--- NOTE | 2018-11-18 19:46 | NUR ---
NURSE NOTES: Received pt and report from BETY Beverly. Observed pt resting on the side of the bed with both feet on the ground and friend/family member at bedside. windows mobile developer is in placed, IV site intact, asymptomatic, and patent. Bed is in the lowest position and locked, call light within reach. No signs/symptoms of acute distress noted at this time. Will continue plan of care.
[2018-11-18 20:00] VITALS: BP 115/79
[2018-11-18] MEDS ORDERED: Lexiscan 0.4mg/5ml syringe IV PRN (22:15)
--- NOTE | 2018-11-18 22:29 | Consultation ---
Consult Note Consult Note Cardiac EP Full consult dictated # [id number] Ilene Ji MD Nov 18, 2018 22:29
[2018-11-19] VITALS: BP 120/67
--- NOTE | 2018-11-19 00:01 | Consultation ---
DATE OF CONSULTATION: 11/18/2018 CARDIAC ELECTROPHYSIOLOGY CONSULTATION CONSULTING PHYSICIAN: Ilene Ji M.D. REQUESTING PHYSICIAN: Juvenal Argueta M.D. REASON FOR CONSULTATION: Cardiomyopathy with new onset congestive heart failure in patient with permanent pacemaker and history of second-degree AV block. HISTORY OF PRESENT ILLNESS: The patient is a 73-year-old woman known to me from previous hospitalizations and the office who has a history of second degree AV block and is status post permanent pacemaker placement about one year ago. She also has a history of hypertension and previous negative cardiac catheterization in 2013 for obstructive coronary artery disease. She was admitted on 11/17/2018 with increasing dyspnea, nonproductive cough, and lower extremity edema ongoing for a few days prior to admission. She had two pillow orthopnea. No PND or chest pain. Evaluation so far has included an echo, which shows significant worsening left ventricular function with ejection fraction of 25% to 30%, global left ventricular hypokinesis worse in the septum, apex, and lateral wallace. There was question of apical thrombus. Cardiac electrophysiology evaluation was requested. She denies any palpitations, lightheadedness, dizziness or syncope. She has not had any focal motor or sensory changes, speech changes, or vision change. MEDICATIONS: Levaquin 500 mg daily, insulin sliding scale, theophylline 100 mg every 12 hours, allopurinol 300 mg daily, hydrochlorothiazide 25 mg daily, subcutaneous heparin 5000 units q.12 hours, Zofran as needed, MiraLAX p.r.n., morphine as needed, aspirin as needed, ipratropium albuterol nebulizer as needed. ALLERGIES: No known drug allergies. PAST MEDICAL HISTORY: As noted above. SOCIAL HISTORY: The patient is a nonsmoker. She has no history of alcohol or drug use. REVIEW OF SYSTEMS: As per history of present illness. PHYSICAL EXAMINATION: VITAL SIGNS: Blood pressure is 115/79, pulse 91 regular, respirations 18, and afebrile. GENERAL: Alert, well-developed female, in no acute distress. HEENT: Normocephalic and atraumatic. Pupils are equal, round, and reactive to light. Sclerae anicteric. NECK: Supple. There is no jugular venous distention. No carotid bruits. LUNGS: Clear to auscultation bilaterally. HEART: Regular S1 and S2. No murmur or S3. ABDOMEN: Soft, nontender, obese. Normoactive bowel sounds. EXTREMITIES: A 1+ pedal edema bilaterally. NEUROLOGIC: No gross focal motor deficits. LABORATORY AND DIAGNOSTIC DATA: Hemoglobin 13, white blood count 5800, platelets 188,000. Sodium 143, potassium 4.2, chloride 108, bicarbonate 28, BUN 32, creatinine 1.2. Troponin 0.005. BNP 669. Chest x-ray shows a dual-chamber pacemaker leads in the right atrium and right ventricle entering from the left, no infiltrates, mild cephalization. Echo shows an ejection fraction of 25 to 30%, global hypokinesis with worse wall motion of the septum, apex, and lateral wall, cannot rule out apical thrombus. Per the echo report, the patient was in atrial fibrillation at the time of study. Doppler showed mild tricuspid regurgitation and mild pulmonary hypertension. ASSESSMENT AND RECOMMENDATIONS: The patient is a 73-year-old woman with a history of second-degree AV block status post permanent dual-chamber pacemaker placement, history of diabetes, and hypertension, who was admitted with increasing shortness of breath, orthopnea, and peripheral edema. She is noted to be in heart failure and has significantly decreased left ventricular function compared to her baseline. Ejection fraction was previously normal and is now down to 25 to 30% with some focal wall motion abnormalities. She may also have superimposed acute bronchitis. I would recommend starting treatment for her cardiomyopathy including GRETEL inhibitors, Coreg, and diuretics titrated to clinical response. I would also favor repeat noninvasive testing for ischemia to rule this out as a cause for her new LV dysfunction. We would consider contrast echo to better determine if the patient has an apical thrombus. She has evidence for congestive heart failure due to left ventricular systolic dysfunction with a significant decline in ejection fraction currently compared with previous echo. She also has an acute bronchitis which may be contributing to her left ventricular dysfunction. However I would agree with noninvasive evaluation for ischemia to rule this out as a cause for her new onset congestive heart failure. I would favor starting Coreg, GRETEL inhibitor, or ARB and diuresing as tolerated and GRETEL inhibitor or ARB for afterload reduction. We would give diuretics for treatment of pulmonary vascular congestion with close monitoring of intake and output, weights, and renal function. I will arrange for interrogation of her pacemaker to determine if any atrial fibrillation has been detected as the echo reported that she was in atrial fibrillation at the time of the study. We would also consider contrast echo to better determine whether the patient has an apical thrombus. She may be a candidate for upgrade of her pacemaker to an ICD or biventricular ICD but she needs to have ischemia ruled out and also would need a trial of at least three months of optimal medical therapy for her cardiomyopathy. Ilene Ji M.D. DR: Teresita JOB#: [id number] CC:
[2018-11-19 04:00] VITALS: BP 108/58
--- NOTE | 2018-11-19 04:03 | NUR ---
NURSE NOTES: Observed pt ambulating to bathroom. Pt is steady. No signs/symptoms of acute distress noted at this time. Will continue plan of care.
[2018-11-19] MEDS: NovoLOG Insulin Flexpen SUBQ SCH ×4 (06:46→21:01)
[2018-11-19 07:22] LABS: BASOPHILS % (AUTO) 1.6 % (0.0-2.0); EOSINOPHILS % (AUTO) 8.3 % (0.0-3.0); HEMATOCRIT 38.6 % (37.0-47.0); LYMPHOCYTES % (AUTO) 37.8 % (20.0-45.0); MEAN CORPUSCULAR VOLUME 82 FL (80-99); MONOCYTES % (AUTO) 11.3 % (1.0-10.0); NEUTROPHILS % (AUTO) 41.1 % (45.0-75.0); PLATELET COUNT 204 K/UL (150-450); RED BLOOD COUNT 4.68 M/UL (4.20-5.40); RED CELL DISTRIBUTION WIDTH 12.3 % (11.6-14.8); WHITE BLOOD COUNT 5.4 K/UL (4.8-10.8)
[2018-11-19 07:45] LABS: ANION GAP 6 mmol/L (5-15); BLOOD UREA NITROGEN 23 mg/dL (7-18); CALCIUM 9.4 MG/DL (8.5-10.1); CARBON DIOXIDE 27 MMOL/L (21-32); CHLORIDE 106 MMOL/L (98-107); CREATININE 1.3 MG/DL (0.55-1.30); POTASSIUM 4.2 MMOL/L (3.5-5.1); SODIUM 139 MMOL/L (136-145)
--- NOTE | 2018-11-19 07:54 | NUR ---
HAND-OFF: Report given to BETY Robledo. Pt is in stable condition. Plan of care endorsed.
[2018-11-19 08:00] VITALS: BP 112/73
--- NOTE | 2018-11-19 08:04 | NUR ---
Received report from BETY Causey. Patient is A/O x4. Awake and responsive. Breathing regular with no distress noted at this time. Reenforced patient to use call light when in need of assistance. Patient verbalizes understanding. Bed is in lowest position with breaks enclosed and call light within reach. Patient is in stable condition at this time. Will continue plan of care.
[2018-11-19] MEDS: Theophylline ER 100mg ORAL SCH ×2 (08:47→21:04)
[2018-11-19] MEDS: Heparin 5000 units/ml inj SUBQ SCH ×2 (08:49→20:51)
[2018-11-19] MEDS ORDERED: Levofloxacin 500mg tab ORAL SCH (09:00)
--- NOTE | 2018-11-19 10:51 | GI Progress Note ---
Assessment/Plan Problems: (1) Diabetes mellitus ICD Codes: E11.9 - Type 2 diabetes mellitus without complications SNOMED: 11952469 (2) Colon polyps ICD Codes: K63.5 - Colon polyps SNOMED: 84503402 (3) CHF (congestive heart failure) ICD Codes: I50.9 - Heart failure, unspecified SNOMED: 52601255 Status: stable Status Narrative Discussed with Dr. Ramirez. Assessment/Plan No plans for any inpatient GI procedures. Patient to follow-up with us as outpatient to schedule her colonoscopy. Follow-up pulmonary recommendations Symptomatic treatment Regular diet, patient is tolerating Zofran as needed PPI Follow labs The patient was seen and examined at bedside and all new and available data was reviewed in the patients chart. I agree with the above findings, impression and plan. (Patient seen earlier today. Signature stamp does not reflect patient encounter time.). - Franc Ramirez MD Subjective Gastrointestinal/Abdominal: Reports: no symptoms Objective Last 24 Hour Vital Signs Date Time Temp Pulse Resp B/P (MAP) Pulse Ox O2 Delivery O2 Flow Rate FiO2 11/19/18 09:30 79 20 97 Room Air 21 77 20 93 11/19/18 08:15 89 18 99 Room Air 21 11/19/18 08:00 Room Air 11/19/18 08:00 98.7 82 20 112/73 (86) 95 11/19/18 08:00 80 11/19/18 04:00 98.6 96 19 108/58 (75) 96 11/19/18 04:00 96 11/19/18 00:00 98.4 80 17 120/67 (84) 98 11/19/18 00:00 80 11/18/18 21:00 Room Air 11/18/18 20:07 85 18 97 Room Air 21 11/18/18 20:00 98.7 91 18 115/79 (91) 97 11/18/18 20:00 90 11/18/18 16:00 88 11/18/18 16:00 98.4 88 20 123/84 (97) 97 11/18/18 12:00 97.8 88 20 115/84 (94) 97 11/18/18 12:00 88 Intake and Output 11/18/18 11/19/18 18:59 06:59 Intake Total 260 ml 250 ml Balance 260 ml 250 ml Intake Oral 260 ml 250 ml # Voids 3 2 # Bowel Movements 1 Laboratory Tests Test 11/19/18 06:55 White Blood Count 5.4 K/UL (4.8-10.8) Red Blood Count 4.68 M/UL (4.20-5.40) Hemoglobin 13.0 G/DL (12.0-16.0) Hematocrit 38.6 % (37.0-47.0) Mean Corpuscular Volume 82 FL (80-99) Mean Corpuscular Hemoglobin 27.9 PG (27.0-31.0) Mean Corpuscular Hemoglobin Concent 33.8 G/DL (32.0-36.0) Red Cell Distribution Width 12.3 % (11.6-14.8) Platelet Count 204 K/UL (150-450) Mean Platelet Volume 6.7 FL (6.5-10.1) Neutrophils (%) (Auto) 41.1 % (45.0-75.0) L Lymphocytes (%) (Auto) 37.8 % (20.0-45.0) Monocytes (%) (Auto) 11.3 % (1.0-10.0) H Eosinophils (%) (Auto) 8.3 % (0.0-3.0) H Basophils (%) (Auto) 1.6 % (0.0-2.0) Sodium Level 139 MMOL/L (136-145) Potassium Level 4.2 MMOL/L (3.5-5.1) Chloride Level 106 MMOL/L (98-107) Carbon Dioxide Level 27 MMOL/L (21-32) Anion Gap 6 mmol/L (5-15) Blood Urea Nitrogen 23 mg/dL (7-18) H Creatinine 1.3 MG/DL (0.55-1.30) Estimat Glomerular Filtration Rate mL/min (>60) Glucose Level 151 MG/DL (74-106) H Calcium Level 9.4 MG/DL (8.5-10.1) Height (Feet): 5 Height (Inches): 1.00 Weight (Pounds): 184 General Appearance: WD/WN, no apparent distress, alert Cardiovascular: normal rate Respiratory/Chest: normal breath sounds, no respiratory distress Abdominal Exam: normal bowel sounds, non tender, soft Extremities: normal range of motion, non-tender Barnett,Olga Lidia-Dayne JANITORIAL TECH Nov 19, 2018 10:51
--- NOTE | 2018-11-19 11:27 | NUR ---
CASE MANAGEMENT:REVIEW 11/19/18 SI: CHEST PAIN. COUGH. CHF 2ND DEGREE AV BLOCK...S/P PACEMAKER 98.7 82 20 112/73 95% ON RA BUN+23 GLUCOSE+151 IS: IV LEXISCAN LEVAQUIN PO QOD ELLEN-DUR PO Q12 AZITHROMAX PO Q24 ALLOPURINOL PO QD HCTZ PO QD HEPARIN SQ Q12 : TELEMETRY STATUS DCP: PATIENT IS FROM HOME PLAN: STRESS TEST SCHEDULED FOR TODAY TO R/O ISCHEMIA ~ MAY NEED TO HAVE [employer]PER[employer] UPGRADED TO ICD
[2018-11-19 11:51] VITALS: BP 121/74
--- NOTE | 2018-11-19 12:06 | NUR ---
NM Myocardial Perfusion scan complete.
--- NOTE | 2018-11-19 12:18 | Infectious Diseases Prog Note ---
Assessment/Plan Assessment/Plan Assessment: Probable early PNA vs acute bronchitis -CXR: Cardiomegaly. No definite acute process Afebrile No leukocytosis NELLY, improving Dm2 CHF HTN nephrolithiasis s/p lithotripsy 01/2018 & 02/2017 s/p PPM Plan: -Continue PO Levaquin #2 (abx d #4/5) -11/18 SP IV Vancomycin #3, Cefepime #3, Azithromycin #2 -11/16 SP Ceftriaxone x1 -f/u cx -Monitor CBC/CMP, temperatures -f/u sp cx, legionella ag urine, influenza sc Thank you for this consultation. Will continue to follow along with you. Discussed with RN Subjective Allergies: Coded Allergies: No Known Allergies (Unverified , 04/26/18) Subjective afebrile no leukocytosis Objective Vital Signs Last 24 Hour Vital Signs Date Time Temp Pulse Resp B/P (MAP) Pulse Ox O2 Delivery O2 Flow Rate FiO2 11/19/18 11:51 98.6 90 18 121/74 (90) 95 11/19/18 09:30 79 20 97 Room Air 21 77 20 93 11/19/18 08:15 89 18 99 Room Air 21 11/19/18 08:00 Room Air 11/19/18 08:00 98.7 82 20 112/73 (86) 95 11/19/18 08:00 80 11/19/18 04:00 98.6 96 19 108/58 (75) 96 11/19/18 04:00 96 11/19/18 00:00 98.4 80 17 120/67 (84) 98 11/19/18 00:00 80 11/18/18 21:00 Room Air 11/18/18 20:07 85 18 97 Room Air 21 11/18/18 20:00 98.7 91 18 115/79 (91) 97 11/18/18 20:00 90 11/18/18 16:00 88 11/18/18 16:00 98.4 88 20 123/84 (97) 97 Height (Feet): 5 Height (Inches): 1.00 Weight (Pounds): 184 Objective General Appearance: alert, mild distress Head: normocephalic, atraumatic Eyes: bilateral eye normal inspection, bilateral eye PERRL ENT: hearing grossly normal, normal pharynx, no angioedema, normal voice, TMs + canals normal Neck: full range of motion, supple/symm/no masses Respiratory: chest non-tender, no rhonchi, no retraction, no wheezing, crackles - RLL Cardiovascular #1: regular rate, rhythm, no edema, no murmur Gastrointestinal: normal bowel sounds, non tender, soft, non-distended, no guarding, no rebound Genitourinary: normal inspection, no CVA tenderness Musculoskeletal: back normal, gait/station normal, normal range of motion, non- tender, no calf tenderness Neurologic: alert, oriented x3, responsive, motor strength/tone normal, sensory intact, speech normal Microbiology Date/Time Source Procedure Growth Status 11/16/18 20:20 Blood Blood Culture - Preliminary NO GROWTH AFTER 48 HOURS Resulted 11/16/18 20:15 Blood Blood Culture - Preliminary NO GROWTH AFTER 48 HOURS Resulted 11/17/18 22:50 Sputum Gram Stain - Final Resulted 11/17/18 22:50 Sputum Sputum Culture Pending Resulted Laboratory Tests Test 11/19/18 06:55 White Blood Count 5.4 K/UL (4.8-10.8) Red Blood Count 4.68 M/UL (4.20-5.40) Hemoglobin 13.0 G/DL (12.0-16.0) Hematocrit 38.6 % (37.0-47.0) Mean Corpuscular Volume 82 FL (80-99) Mean Corpuscular Hemoglobin 27.9 PG (27.0-31.0) Mean Corpuscular Hemoglobin Concent 33.8 G/DL (32.0-36.0) Red Cell Distribution Width 12.3 % (11.6-14.8) Platelet Count 204 K/UL (150-450) Mean Platelet Volume 6.7 FL (6.5-10.1) Neutrophils (%) (Auto) 41.1 % (45.0-75.0) L Lymphocytes (%) (Auto) 37.8 % (20.0-45.0) Monocytes (%) (Auto) 11.3 % (1.0-10.0) H Eosinophils (%) (Auto) 8.3 % (0.0-3.0) H Basophils (%) (Auto) 1.6 % (0.0-2.0) Sodium Level 139 MMOL/L (136-145) Potassium Level 4.2 MMOL/L (3.5-5.1) Chloride Level 106 MMOL/L (98-107) Carbon Dioxide Level 27 MMOL/L (21-32) Anion Gap 6 mmol/L (5-15) Blood Urea Nitrogen 23 mg/dL (7-18) H Creatinine 1.3 MG/DL (0.55-1.30) Estimat Glomerular Filtration Rate mL/min (>60) Glucose Level 151 MG/DL (74-106) H Calcium Level 9.4 MG/DL (8.5-10.1) Current Medications Medications (Trade) Dose Ordered Sig/Harsh Route PRN Reason Start Time Stop Time Status Last Admin Dose Admin Acetaminophen (Tylenol) 650 mg Q4H PRN ORAL T>100.5 11/16/18 21:00 12/16/18 20:59 Albuterol/ Ipratropium (Albuterol/ Ipratropium) 3 ml Q4H PRN HHN Shortness of Breath 11/16/18 21:00 11/21/18 20:59 11/19/18 09:22 Allopurinol (Allopurinol) 300 mg DAILY ORAL 11/17/18 09:00 12/17/18 08:59 11/19/18 08:47 Dextrose (Dextrose 50%) 25 ml Q30M PRN IV Hypoglycemia 11/18/18 11:30 12/18/18 11:29 Dextrose (Dextrose 50%) 50 ml Q30M PRN IV Hypoglycemia 11/18/18 11:30 12/18/18 11:29 Heparin Sodium (Porcine) (Heparin 5000 units/ml) 5,000 units EVERY 12 HOURS SUBQ 11/16/18 22:00 12/16/18 21:59 11/19/18 08:49 Hydrochlorothiazide (Hydrodiuril) 25 mg DAILY ORAL 11/17/18 09:00 12/17/18 08:59 11/19/18 08:47 Insulin Aspart (NovoLOG) BEFORE MEALS AND HS SUBQ 11/18/18 11:30 12/18/18 11:29 11/19/18 11:40 Levofloxacin (Levaquin) 500 mg EVERY OTHER DAY ORAL 11/19/18 09:00 11/26/18 08:59 11/19/18 08:47 Morphine Sulfate (Morphine Sulfate) 2 mg Q4H PRN IVP Severe Pain (Pain Scale 7-10) 11/16/18 21:00 11/23/18 20:59 Ondansetron HCl (Zofran) 4 mg Q6H PRN IVP Nausea & Vomiting 11/16/18 21:00 12/16/18 20:59 Polyethylene Glycol (Miralax) 17 gm DAILYPRN PRN ORAL Constipation 11/16/18 21:00 12/16/18 20:59 Promethazine HCl/ Codeine (Phenergan with Codeine) 5 ml Q4H PRN ORAL For Cough 11/17/18 12:15 12/17/18 12:14 Regadenoson (Lexiscan) 0.4 mg ONCE PRN IV STRESS TEST 11/18/18 22:15 11/20/18 22:14 11/19/18 10:23 Theophylline (John-Dur) 100 mg EVERY 12 HOURS ORAL 11/17/18 21:00 12/17/18 20:59 11/19/18 08:47 Veda Arellano M.D. Nov 19, 2018 12:18
--- NOTE | 2018-11-19 13:08 | Diagnostic Imaging Report ---
Indications: Chest pain, dyspnea, congestive heart failure Technique: Single day single isotope protocol utilized. Initially, resting images obtained using IV administration 10.9 millicuries 99M technetium Myoview. Subsequently, patient underwent lexiscan stress testing. See cardiology report for details. During Lexiscan infusion, IV administration 31.2 mCi 99 M technetium Myoview. SPECT and planar images obtained. SPECT images gated to 8 phases of the cardiac cycle were also obtained, and reformatted into cine images for evaluation of ejection fraction. Comparison: 05/17/2013 Findings: Presence or absence of symptoms during infusion is not described on the cardiology report. Per cardiology report, resting EKG demonstrates arteriovenous pacing. Presence or absence of ST changes is not described. Imaging demonstrates a large fixed perfusion defect involving the apex and extending into the anteroseptal wall this is considerably larger than the reversible defect reported on the prior exam. No reversible perfusion abnormality demonstrated currently. Calculated post stress ejection fraction 34%. There is diffuse hypokinesis, most notable at the apex Impression: Nonischemic clinical response to pharmacologic stress, per cardiology report Nondiagnostic electrocardiographic response to pharmacologic stress, per cardiology report Large fixed apical perfusion defect, consistent with infarct. This is a new finding since prior 2014 exam. No imaging findings to suggest ischemia, at level of stress achieved. Calculated post stress ejection fraction 34%
--- NOTE | 2018-11-19 13:15 | Pulmonology Progress Note ---
Assessment/Plan Problems: (1) Acute bronchitis (2) EF 20%-30% (3) Hypertension (4) Diabetes mellitus (5) CHF (congestive heart failure) (6) History of pacemaker Assessment/Plan all reviewed f/u cariology recommendations improving cardiology note reviewed might need perfusion study symptomatic treatment check electrolytes Subjective ROS Limited/Unobtainable: No Constitutional: Reports: no symptoms HEENT: Repors: no symptoms Allergies: Coded Allergies: No Known Allergies (Unverified , 04/26/18) Objective Last 24 Hour Vital Signs Date Time Temp Pulse Resp B/P (MAP) Pulse Ox O2 Delivery O2 Flow Rate FiO2 11/19/18 12:00 90 11/19/18 11:51 98.6 90 18 121/74 (90) 95 11/19/18 09:30 79 20 97 Room Air 21 77 20 93 11/19/18 08:15 89 18 99 Room Air 21 11/19/18 08:00 Room Air 11/19/18 08:00 98.7 82 20 112/73 (86) 95 11/19/18 08:00 80 11/19/18 04:00 98.6 96 19 108/58 (75) 96 11/19/18 04:00 96 11/19/18 00:00 98.4 80 17 120/67 (84) 98 11/19/18 00:00 80 11/18/18 21:00 Room Air 11/18/18 20:07 85 18 97 Room Air 21 11/18/18 20:00 98.7 91 18 115/79 (91) 97 11/18/18 20:00 90 11/18/18 16:00 88 11/18/18 16:00 98.4 88 20 123/84 (97) 97 Intake and Output 11/18/18 11/19/18 19:00 07:00 Intake Total 140 ml 250 ml Balance 140 ml 250 ml Intake Oral 140 ml 250 ml # Voids 3 2 # Bowel Movements 1 Objective no cough, no SOb General Appearance: WD/WN HEENT: normocephalic, atraumatic Respiratory/Chest: chest wall non-tender, lungs clear Breasts: no masses Cardiovascular: normal peripheral pulses Abdomen: normal bowel sounds, soft, non tender Genitourinary: normal external genitalia Skin: no rash Microbiology Date/Time Source Procedure Growth Status 11/16/18 20:20 Blood Blood Culture - Preliminary NO GROWTH AFTER 48 HOURS Resulted 11/16/18 20:15 Blood Blood Culture - Preliminary NO GROWTH AFTER 48 HOURS Resulted 11/17/18 22:50 Sputum Gram Stain - Final Resulted 11/17/18 22:50 Sputum Sputum Culture Pending Resulted Laboratory Tests 11/19/18 06:55: White Blood Count 5.4, Red Blood Count 4.68, Hemoglobin 13.0, Hematocrit 38.6, Mean Corpuscular Volume 82, Mean Corpuscular Hemoglobin 27.9, Mean Corpuscular Hemoglobin Concent 33.8, Red Cell Distribution Width 12.3, Platelet Count 204, Mean Platelet Volume 6.7, Neutrophils (%) (Auto) 41.1L, Lymphocytes (%) (Auto) 37.8, Monocytes (%) (Auto) 11.3H, Eosinophils (%) (Auto) 8.3H, Basophils (%) ( Auto) 1.6, Sodium Level 139, Potassium Level 4.2, Chloride Level 106, Carbon Dioxide Level 27, Anion Gap 6, Blood Urea Nitrogen 23H, Creatinine 1.3, Estimat Glomerular Filtration Rate , Glucose Level 151H, Calcium Level 9.4 Current Medications Medications (Trade) Dose Ordered Sig/Harsh Route PRN Reason Start Time Stop Time Status Last Admin Dose Admin Acetaminophen (Tylenol) 650 mg Q4H PRN ORAL T>100.5 11/16/18 21:00 12/16/18 20:59 Albuterol/ Ipratropium (Albuterol/ Ipratropium) 3 ml Q4H PRN HHN Shortness of Breath 11/16/18 21:00 11/21/18 20:59 11/19/18 09:22 Allopurinol (Allopurinol) 300 mg DAILY ORAL 11/17/18 09:00 12/17/18 08:59 11/19/18 08:47 Dextrose (Dextrose 50%) 25 ml Q30M PRN IV Hypoglycemia 11/18/18 11:30 12/18/18 11:29 Dextrose (Dextrose 50%) 50 ml Q30M PRN IV Hypoglycemia 11/18/18 11:30 12/18/18 11:29 Heparin Sodium (Porcine) (Heparin 5000 units/ml) 5,000 units EVERY 12 HOURS SUBQ 11/16/18 22:00 12/16/18 21:59 11/19/18 08:49 Hydrochlorothiazide (Hydrodiuril) 25 mg DAILY ORAL 11/17/18 09:00 12/17/18 08:59 11/19/18 08:47 Insulin Aspart (NovoLOG) BEFORE MEALS AND HS SUBQ 11/18/18 11:30 12/18/18 11:29 11/19/18 11:40 Levofloxacin (Levaquin) 500 mg EVERY OTHER DAY ORAL 11/19/18 09:00 11/26/18 08:59 11/19/18 08:47 Morphine Sulfate (Morphine Sulfate) 2 mg Q4H PRN IVP Severe Pain (Pain Scale 7-10) 11/16/18 21:00 11/23/18 20:59 Ondansetron HCl (Zofran) 4 mg Q6H PRN IVP Nausea & Vomiting 11/16/18 21:00 12/16/18 20:59 Polyethylene Glycol (Miralax) 17 gm DAILYPRN PRN ORAL Constipation 11/16/18 21:00 12/16/18 20:59 Promethazine HCl/ Codeine (Phenergan with Codeine) 5 ml Q4H PRN ORAL For Cough 11/17/18 12:15 12/17/18 12:14 Regadenoson (Lexiscan) 0.4 mg ONCE PRN IV STRESS TEST 11/18/18 22:15 11/20/18 22:14 11/19/18 10:23 Theophylline (John-Dur) 100 mg EVERY 12 HOURS ORAL 11/17/18 21:00 12/17/18 20:59 11/19/18 08:47 Sussy Edwards MD Nov 19, 2018 13:14
--- NOTE | 2018-11-19 15:33 | NUR ---
*-* INSURANCE *-* ALL AVAILABLE CLINICALS HAVE BEEN FAXED TO: LEENA APONTEM:LAURA Farnsworth; [phone] F: [phone]
[2018-11-19 16:00] VITALS: BP 112/84
--- NOTE | 2018-11-19 17:47 | Internal Med Progress Note ---
Subjective Date of Service: Nov 19, 2018 Physician Name Dionicio Romero Attending Physician Alonso Reddy MD Current Medications Medications (Trade) Dose Ordered Sig/Harsh Route PRN Reason Start Time Stop Time Status Last Admin Dose Admin Acetaminophen (Tylenol) 650 mg Q4H PRN ORAL T>100.5 11/16/18 21:00 12/16/18 20:59 Albuterol/ Ipratropium (Albuterol/ Ipratropium) 3 ml Q4H PRN HHN Shortness of Breath 11/16/18 21:00 11/21/18 20:59 11/19/18 09:22 Allopurinol (Allopurinol) 300 mg DAILY ORAL 11/17/18 09:00 12/17/18 08:59 11/19/18 08:47 Dextrose (Dextrose 50%) 25 ml Q30M PRN IV Hypoglycemia 11/18/18 11:30 12/18/18 11:29 Dextrose (Dextrose 50%) 50 ml Q30M PRN IV Hypoglycemia 11/18/18 11:30 12/18/18 11:29 Heparin Sodium (Porcine) (Heparin 5000 units/ml) 5,000 units EVERY 12 HOURS SUBQ 11/16/18 22:00 12/16/18 21:59 11/19/18 08:49 Hydrochlorothiazide (Hydrodiuril) 25 mg DAILY ORAL 11/17/18 09:00 12/17/18 08:59 11/19/18 08:47 Insulin Aspart (NovoLOG) BEFORE MEALS AND HS SUBQ 11/18/18 11:30 12/18/18 11:29 11/19/18 11:40 Levofloxacin (Levaquin) 500 mg EVERY OTHER DAY ORAL 11/19/18 09:00 11/26/18 08:59 11/19/18 08:47 Morphine Sulfate (Morphine Sulfate) 2 mg Q4H PRN IVP Severe Pain (Pain Scale 7-10) 11/16/18 21:00 11/23/18 20:59 Ondansetron HCl (Zofran) 4 mg Q6H PRN IVP Nausea & Vomiting 11/16/18 21:00 12/16/18 20:59 Polyethylene Glycol (Miralax) 17 gm DAILYPRN PRN ORAL Constipation 11/16/18 21:00 12/16/18 20:59 Promethazine HCl/ Codeine (Phenergan with Codeine) 5 ml Q4H PRN ORAL For Cough 11/17/18 12:15 12/17/18 12:14 Regadenoson (Lexiscan) 0.4 mg ONCE PRN IV STRESS TEST 11/18/18 22:15 11/20/18 22:14 11/19/18 10:23 Theophylline (John-Dur) 100 mg EVERY 12 HOURS ORAL 11/17/18 21:00 12/17/18 20:59 11/19/18 08:47 Allergies: Coded Allergies: No Known Allergies (Unverified , 04/26/18) Subjective 73 YO F admitted with cough and chest pain. Now purulent bronchitis and CHF. Cover for Int Med-DR Reddy Objective Last Vital Signs Date Time Temp Pulse Resp B/P (MAP) Pulse Ox O2 Delivery O2 Flow Rate FiO2 11/19/18 16:00 93 11/19/18 16:00 98.3 18 112/84 (93) 98 11/19/18 09:30 Room Air 21 Laboratory Tests Test 11/19/18 06:55 White Blood Count 5.4 K/UL (4.8-10.8) Red Blood Count 4.68 M/UL (4.20-5.40) Hemoglobin 13.0 G/DL (12.0-16.0) Hematocrit 38.6 % (37.0-47.0) Mean Corpuscular Volume 82 FL (80-99) Mean Corpuscular Hemoglobin 27.9 PG (27.0-31.0) Mean Corpuscular Hemoglobin Concent 33.8 G/DL (32.0-36.0) Red Cell Distribution Width 12.3 % (11.6-14.8) Platelet Count 204 K/UL (150-450) Mean Platelet Volume 6.7 FL (6.5-10.1) Neutrophils (%) (Auto) 41.1 % (45.0-75.0) L Lymphocytes (%) (Auto) 37.8 % (20.0-45.0) Monocytes (%) (Auto) 11.3 % (1.0-10.0) H Eosinophils (%) (Auto) 8.3 % (0.0-3.0) H Basophils (%) (Auto) 1.6 % (0.0-2.0) Sodium Level 139 MMOL/L (136-145) Potassium Level 4.2 MMOL/L (3.5-5.1) Chloride Level 106 MMOL/L (98-107) Carbon Dioxide Level 27 MMOL/L (21-32) Anion Gap 6 mmol/L (5-15) Blood Urea Nitrogen 23 mg/dL (7-18) H Creatinine 1.3 MG/DL (0.55-1.30) Estimat Glomerular Filtration Rate mL/min (>60) Glucose Level 151 MG/DL (74-106) H Calcium Level 9.4 MG/DL (8.5-10.1) Microbiology Date/Time Source Procedure Growth Status 11/16/18 20:20 Blood Blood Culture - Preliminary NO GROWTH AFTER 48 HOURS Resulted 11/16/18 20:15 Blood Blood Culture - Preliminary NO GROWTH AFTER 48 HOURS Resulted 11/17/18 22:50 Sputum Gram Stain - Final Resulted 11/17/18 22:50 Sputum Sputum Culture Pending Resulted Intake and Output 11/18/18 11/19/18 19:00 07:00 Intake Total 140 ml 250 ml Balance 140 ml 250 ml Intake Oral 140 ml 250 ml # Voids 3 2 # Bowel Movements 1 Objective General Appearance: WD/WN, no apparent distress, alert EENT: PERRL/EOMI, normal ENT inspection Neck: non-tender, normal alignment, supple, normal inspection Cardiovascular: normal peripheral pulses, normal rate, regular rhythm, no gallop/murmur, no JVD Respiratory/Chest: chest wall non-tender, no accessory muscle use, crackles/ rales, expiratory wheezing Abdomen: normal bowel sounds, non tender, soft, no organomegaly, no mass Extremities: normal range of motion, non-tender Neurologic: toy maker II-XII grossly normal, no motor/sensory deficits Skin: normal pigmentation, warm/dry Assessment/Plan Problem List: (1) PNA (pneumonia) Assessment & Plan: Continue azithromycin (oral), cefepime and vanco. See pulmonary note=DR Edwards (2) Pacemaker (3) Gout Assessment & Plan: continue allopurinol (4) SOB (shortness of breath) (5) Hypoxia (6) Cough (7) Acute purulent bronchitis Assessment & Plan: Continue oral Levaquin per ID (8) Chest pain with moderate risk of acute coronary syndrome (9) CHF (congestive heart failure) Assessment & Plan: LVEF=25-30%. See cardiology note=Dr Argueta. (10) EF 20%-30% (11) Diabetes mellitus Assessment & Plan: Continue novolog sliding scale (12) Hypertension Assessment & Plan: Continue hydrochlorothiazide. (13) Second degree atrioventricular block Assessment & Plan: S/P pacemaker Dionicio Romero MD Nov 19, 2018 17:47
--- NOTE | 2018-11-19 19:18 | NUR ---
HAND-OFF: Report given to BETY Goddard. Pt is in stable condition; plan of care endorsed.
--- NOTE | 2018-11-19 19:47 | NUR ---
Received handoff and pt from BETY Robledo. Patient on side of bed eating meal. monitoring analyst is in place, IV intact, asymptomatic, and patent. bed locked and in lowest position, call light within reach. No signs and symptoms of acute distress. Will continue plan of care.
--- NOTE | 2018-11-19 19:57 | Cardiology Progress Note ---
Assessment/Plan Assessment/Plan 1. Cough. 2. ICM ef 34% large fixed defect 3. Permanent pacemaker implantation. 4. Increased LV apical echoes. 5. chf systolic d/w pt result of mpi showing large non reversible lesion in lad territory in light of dysfunction the apical echos may potentially represent thombus no contrast echo is available here at this hospital willl have done as outpt at [facility] will start on Coumadin now will startt on acei tonite i have discussed with pt the need to restrict na and fluid intake she is aware of couamdin and i have explained need for frequent monitoring and interaction with diet an meds Subjective Cardiovascular: Denies: lightheadedness, palpitations Respiratory: Reports: cough; Denies: shortness of breath Gastrointestinal/Abdominal: Denies: abdomen distended, abdominal pain Genitourinary: Denies: burning Objective Last 24 Hour Vital Signs Date Time Temp Pulse Resp B/P (MAP) Pulse Ox O2 Delivery O2 Flow Rate FiO2 11/19/18 16:00 93 11/19/18 16:00 98.3 90 18 112/84 (93) 98 11/19/18 12:00 90 11/19/18 11:51 98.6 90 18 121/74 (90) 95 11/19/18 09:30 79 20 97 Room Air 21 77 20 93 11/19/18 08:15 89 18 99 Room Air 21 11/19/18 08:00 Room Air 11/19/18 08:00 98.7 82 20 112/73 (86) 95 11/19/18 08:00 80 11/19/18 04:00 98.6 96 19 108/58 (75) 96 11/19/18 04:00 96 11/19/18 00:00 98.4 80 17 120/67 (84) 98 11/19/18 00:00 80 11/18/18 21:00 Room Air 11/18/18 20:07 85 18 97 Room Air 21 11/18/18 20:00 98.7 91 18 115/79 (91) 97 11/18/18 20:00 90 General Appearance: no apparent distress, alert Cardiovascular: normal rate, regular rhythm Respiratory/Chest: lungs clear Abdomen: normal bowel sounds, non tender, soft Extremities: no swelling Intake and Output 11/18/18 11/19/18 19:00 07:00 Intake Total 140 ml 250 ml Balance 140 ml 250 ml Intake Oral 140 ml 250 ml # Voids 3 2 # Bowel Movements 1 Laboratory Tests Test 11/19/18 06:55 White Blood Count 5.4 K/UL (4.8-10.8) Red Blood Count 4.68 M/UL (4.20-5.40) Hemoglobin 13.0 G/DL (12.0-16.0) Hematocrit 38.6 % (37.0-47.0) Mean Corpuscular Volume 82 FL (80-99) Mean Corpuscular Hemoglobin 27.9 PG (27.0-31.0) Mean Corpuscular Hemoglobin Concent 33.8 G/DL (32.0-36.0) Red Cell Distribution Width 12.3 % (11.6-14.8) Platelet Count 204 K/UL (150-450) Mean Platelet Volume 6.7 FL (6.5-10.1) Neutrophils (%) (Auto) 41.1 % (45.0-75.0) L Lymphocytes (%) (Auto) 37.8 % (20.0-45.0) Monocytes (%) (Auto) 11.3 % (1.0-10.0) H Eosinophils (%) (Auto) 8.3 % (0.0-3.0) H Basophils (%) (Auto) 1.6 % (0.0-2.0) Sodium Level 139 MMOL/L (136-145) Potassium Level 4.2 MMOL/L (3.5-5.1) Chloride Level 106 MMOL/L (98-107) Carbon Dioxide Level 27 MMOL/L (21-32) Anion Gap 6 mmol/L (5-15) Blood Urea Nitrogen 23 mg/dL (7-18) H Creatinine 1.3 MG/DL (0.55-1.30) Estimat Glomerular Filtration Rate mL/min (>60) Glucose Level 151 MG/DL (74-106) H Calcium Level 9.4 MG/DL (8.5-10.1) Microbiology Date/Time Source Procedure Growth Status 11/16/18 20:20 Blood Blood Culture - Preliminary NO GROWTH AFTER 48 HOURS Resulted 11/16/18 20:15 Blood Blood Culture - Preliminary NO GROWTH AFTER 48 HOURS Resulted 11/17/18 22:50 Sputum Gram Stain - Final Resulted 11/17/18 22:50 Sputum Sputum Culture Pending Resulted Juvenal Argueta MD Nov 19, 2018 19:56
[2018-11-19 20:00] VITALS: BP 112/85
[2018-11-19] MEDS: Lisinopril 2.5mg tab ORAL SCH (21:03)
[2018-11-19] MEDS ORDERED: Warfarin Sodium 5mg ORAL ONE (22:30)
[2018-11-20] VITALS: BP 125/79
[2018-11-20 04:00] VITALS: BP 125/79
[2018-11-20] MEDS: NovoLOG Insulin Flexpen SUBQ SCH ×3 (06:22→17:26)
[2018-11-20 07:15] LABS: BASOPHILS % (AUTO) 1.8 % (0.0-2.0); EOSINOPHILS % (AUTO) 7.6 % (0.0-3.0); HEMATOCRIT 39.1 % (37.0-47.0); HEMOGLOBIN 13.4 G/DL (12.0-16.0); LYMPHOCYTES % (AUTO) 36.6 % (20.0-45.0); MEAN CORPUSCULAR VOLUME 82 FL (80-99); MONOCYTES % (AUTO) 9.3 % (1.0-10.0); NEUTROPHILS % (AUTO) 44.7 % (45.0-75.0); PLATELET COUNT 201 K/UL (150-450); RED CELL DISTRIBUTION WIDTH 11.8 % (11.6-14.8); WHITE BLOOD COUNT 5.9 K/UL (4.8-10.8)
--- NOTE | 2018-11-20 07:35 | NUR ---
Report given to Yvette ALBERT. Patient is stable. Plan of care was endorsed.
[2018-11-20 07:38] LABS: ANION GAP 7 mmol/L (5-15); BLOOD UREA NITROGEN 28 mg/dL (7-18); CALCIUM 9.6 MG/DL (8.5-10.1); CARBON DIOXIDE 25 MMOL/L (21-32); CHLORIDE 106 MMOL/L (98-107); CREATININE 1.2 MG/DL (0.55-1.30); POTASSIUM 4.2 MMOL/L (3.5-5.1); SODIUM 138 MMOL/L (136-145)
--- NOTE | 2018-11-20 07:40 | NUR ---
NURSE NOTES: Patient received from Rupesh ALBERT. Patient stable sleeping in bed. No s/sx of pain or distress. RR even and unlabored on RA. Side rails up x2, bed low and locked. Will continue to monitor.
[2018-11-20 08:00] VITALS: BP 121/63
[2018-11-20] MEDS: Theophylline ER 100mg ORAL SCH (08:54)
[2018-11-20] MEDS: Lisinopril 2.5mg tab ORAL SCH (08:54)
[2018-11-20] MEDS: Heparin 5000 units/ml inj SUBQ SCH (08:59)
[2018-11-20 11:54] VITALS: BP 119/68
--- NOTE | 2018-11-20 11:57 | NUR ---
CASE MANAGEMENT:REVIEW 11/20/18 SI: CHEST PAIN. COUGH. CHF 2ND DEGREE AV BLOCK...S/P PACEMAKER 98.1 85 21 119/68 98% ON RA BUN+28 IS: COUMADIN 5MG PO X1 LISINOPRIL PO QD LEVAQUIN PO QOD ELLEN-DUR PO Q12 ALLOPURINOL PO QD HCTZ PO QD HEPARIN SQ Q12 : TELEMETRY STATUS DCP: PATIENT IS FROM HOME PLAN: S/P STRESS TEST ~ WAITING FOR CARDIAC CLEARANCE FOR DISCHARGE
--- NOTE | 2018-11-20 12:58 | Infectious Diseases Prog Note ---
Assessment/Plan Assessment/Plan Assessment: Probable early PNA vs acute bronchitis -CXR: Cardiomegaly. No definite acute process Afebrile No leukocytosis NELLY, improving Dm2 CHF HTN nephrolithiasis s/p lithotripsy 01/2018 & 02/2017 s/p PPM Plan: -Continue PO Levaquin #3 (abx d #5/5) -11/18 SP IV Vancomycin #3, Cefepime #3, Azithromycin #2 -11/16 SP Ceftriaxone x1 -f/u cx -Monitor CBC/CMP, temperatures -f/u sp cx, legionella ag urine, influenza sc Thank you for this consultation. Will continue to follow along with you. Discussed with RN Subjective Allergies: Coded Allergies: No Known Allergies (Unverified , 04/26/18) Subjective afebrile no leukocytosis Objective Vital Signs Last 24 Hour Vital Signs Date Time Temp Pulse Resp B/P (MAP) Pulse Ox O2 Delivery O2 Flow Rate FiO2 11/20/18 11:54 98.1 85 21 119/68 (85) 98 11/20/18 09:00 Room Air 11/20/18 08:54 121/63 11/20/18 08:00 81 11/20/18 08:00 97.9 73 21 121/63 (82) 95 11/20/18 07:17 73 18 99 Room Air 21 11/20/18 04:00 98.6 92 18 125/79 (94) 99 11/20/18 04:00 84 11/20/18 00:00 98.6 92 18 125/79 (94) 99 11/19/18 21:03 112/85 11/19/18 21:00 Room Air 11/19/18 20:00 88 18 97 Room Air 21 11/19/18 20:00 98.4 91 16 112/85 (94) 97 11/19/18 20:00 93 11/19/18 16:00 93 11/19/18 16:00 98.3 90 18 112/84 (93) 98 Height (Feet): 5 Height (Inches): 1.00 Weight (Pounds): 184 Objective General Appearance: alert, mild distress Head: normocephalic, atraumatic Eyes: bilateral eye normal inspection, bilateral eye PERRL ENT: hearing grossly normal, normal pharynx, no angioedema, normal voice, TMs + canals normal Neck: full range of motion, supple/symm/no masses Respiratory: chest non-tender, no rhonchi, no retraction, no wheezing, crackles - RLL Cardiovascular #1: regular rate, rhythm, no edema, no murmur Gastrointestinal: normal bowel sounds, non tender, soft, non-distended, no guarding, no rebound Genitourinary: normal inspection, no CVA tenderness Musculoskeletal: back normal, gait/station normal, normal range of motion, non- tender, no calf tenderness Neurologic: alert, oriented x3, responsive, motor strength/tone normal, sensory intact, speech normal Microbiology Date/Time Source Procedure Growth Status 11/19/18 08:45 Sputum Gram Stain - Final Resulted 11/19/18 08:45 Sputum Sputum Culture Pending Resulted 11/17/18 22:50 Sputum Gram Stain - Final Complete 11/17/18 22:50 Sputum Culture - Final Mary Albicans Usual Upper Respiratory Debora Complete Laboratory Tests Test 11/19/18 20:50 11/20/18 06:30 Prothrombin Time 10.4 SEC (9.30-11.50) 10.4 SEC (9.30-11.50) Prothromb Time International Ratio 1.0 (0.9-1.1) 1.0 (0.9-1.1) White Blood Count 5.9 K/UL (4.8-10.8) Red Blood Count 4.80 M/UL (4.20-5.40) Hemoglobin 13.4 G/DL (12.0-16.0) Hematocrit 39.1 % (37.0-47.0) Mean Corpuscular Volume 82 FL (80-99) Mean Corpuscular Hemoglobin 27.9 PG (27.0-31.0) Mean Corpuscular Hemoglobin Concent 34.2 G/DL (32.0-36.0) Red Cell Distribution Width 11.8 % (11.6-14.8) Platelet Count 201 K/UL (150-450) Mean Platelet Volume 6.5 FL (6.5-10.1) Neutrophils (%) (Auto) 44.7 % (45.0-75.0) L Lymphocytes (%) (Auto) 36.6 % (20.0-45.0) Monocytes (%) (Auto) 9.3 % (1.0-10.0) Eosinophils (%) (Auto) 7.6 % (0.0-3.0) H Basophils (%) (Auto) 1.8 % (0.0-2.0) Sodium Level 138 MMOL/L (136-145) Potassium Level 4.2 MMOL/L (3.5-5.1) Chloride Level 106 MMOL/L (98-107) Carbon Dioxide Level 25 MMOL/L (21-32) Anion Gap 7 mmol/L (5-15) Blood Urea Nitrogen 28 mg/dL (7-18) H Creatinine 1.2 MG/DL (0.55-1.30) Estimat Glomerular Filtration Rate mL/min (>60) Glucose Level 131 MG/DL (74-106) H Calcium Level 9.6 MG/DL (8.5-10.1) Current Medications Medications (Trade) Dose Ordered Sig/Harsh Route PRN Reason Start Time Stop Time Status Last Admin Dose Admin Acetaminophen (Tylenol) 650 mg Q4H PRN ORAL T>100.5 11/16/18 21:00 12/16/18 20:59 Albuterol/ Ipratropium (Albuterol/ Ipratropium) 3 ml Q4H PRN HHN Shortness of Breath 11/16/18 21:00 11/21/18 20:59 11/19/18 09:22 Allopurinol (Allopurinol) 300 mg DAILY ORAL 11/17/18 09:00 12/17/18 08:59 11/20/18 08:54 Dextrose (Dextrose 50%) 25 ml Q30M PRN IV Hypoglycemia 11/18/18 11:30 12/18/18 11:29 Dextrose (Dextrose 50%) 50 ml Q30M PRN IV Hypoglycemia 11/18/18 11:30 12/18/18 11:29 Heparin Sodium (Porcine) (Heparin 5000 units/ml) 5,000 units EVERY 12 HOURS SUBQ 11/16/18 22:00 12/16/18 21:59 11/20/18 08:59 Hydrochlorothiazide (Hydrodiuril) 25 mg DAILY ORAL 11/17/18 09:00 12/17/18 08:59 11/20/18 08:54 Insulin Aspart (NovoLOG) BEFORE MEALS AND HS SUBQ 11/18/18 11:30 12/18/18 11:29 11/20/18 11:45 Levofloxacin (Levaquin) 500 mg EVERY OTHER DAY ORAL 11/19/18 09:00 11/26/18 08:59 11/19/18 08:47 Lisinopril (Zestril) 2.5 mg DAILY ORAL 11/19/18 20:00 12/19/18 19:59 11/20/18 08:54 Morphine Sulfate (Morphine Sulfate) 2 mg Q4H PRN IVP Severe Pain (Pain Scale 7-10) 11/16/18 21:00 11/23/18 20:59 Ondansetron HCl (Zofran) 4 mg Q6H PRN IVP Nausea & Vomiting 11/16/18 21:00 12/16/18 20:59 Polyethylene Glycol (Miralax) 17 gm DAILYPRN PRN ORAL Constipation 11/16/18 21:00 12/16/18 20:59 Promethazine HCl/ Codeine (Phenergan with Codeine) 5 ml Q4H PRN ORAL For Cough 11/17/18 12:15 12/17/18 12:14 Regadenoson (Lexiscan) 0.4 mg ONCE PRN IV STRESS TEST 11/18/18 22:15 11/20/18 22:14 11/19/18 10:23 Theophylline (John-Dur) 100 mg EVERY 12 HOURS ORAL 11/17/18 21:00 12/17/18 20:59 11/20/18 08:54 Warfarin Sodium (Coumadin per pharmacy) 1 ea DAILY PRN MISC Per rx protocol 11/19/18 20:00 12/19/18 19:59 Warfarin Sodium (Coumadin) 5 mg COUMADIN ORAL 11/20/18 17:00 11/20/18 18:00 Veda Arellano M.D. Nov 20, 2018 12:58
--- NOTE | 2018-11-20 13:04 | NUR ---
NURSE NOTES: Dr. Argueta called regarding cardiac clearance for discharge. No answer. Will call back.
--- NOTE | 2018-11-20 14:21 | NUR ---
NURSE NOTES: Patient aware that urine sample needed. Specimen cup given.
--- NOTE | 2018-11-20 14:49 | NUR ---
RESPIRATORY NOTE: pt refusing scheduled CPT. RN notified and aware. Pt wanted to make sure everything is okay with her heart, as stated.
--- NOTE | 2018-11-20 14:54 | Pulmonology Progress Note ---
Assessment/Plan Problems: (1) Acute bronchitis (2) EF 20%-30% (3) Hypertension (4) Diabetes mellitus (5) CHF (congestive heart failure) (6) History of pacemaker Assessment/Plan all reviewed, on Coumadin now f/u cariology recommendations improving cardiology note reviewed might need perfusion study symptomatic treatment check electrolytes Subjective ROS Limited/Unobtainable: No Interval Events: no new complains Constitutional: Reports: no symptoms HEENT: Repors: no symptoms Allergies: Coded Allergies: No Known Allergies (Unverified , 04/26/18) Objective Last 24 Hour Vital Signs Date Time Temp Pulse Resp B/P (MAP) Pulse Ox O2 Delivery O2 Flow Rate FiO2 11/20/18 12:00 80 11/20/18 11:54 98.1 85 21 119/68 (85) 98 11/20/18 09:00 Room Air 11/20/18 08:54 121/63 11/20/18 08:00 81 11/20/18 08:00 97.9 73 21 121/63 (82) 95 11/20/18 07:17 73 18 99 Room Air 21 11/20/18 04:00 98.6 92 18 125/79 (94) 99 11/20/18 04:00 84 11/20/18 00:00 98.6 92 18 125/79 (94) 99 11/19/18 21:03 112/85 11/19/18 21:00 Room Air 11/19/18 20:00 88 18 97 Room Air 21 11/19/18 20:00 98.4 91 16 112/85 (94) 97 11/19/18 20:00 93 11/19/18 16:00 93 11/19/18 16:00 98.3 90 18 112/84 (93) 98 Intake and Output 11/19/18 11/20/18 19:00 07:00 # Voids 2 2 Objective no cough, no SOb General Appearance: WD/WN HEENT: atraumatic Respiratory/Chest: chest wall non-tender, normal breath sounds Cardiovascular: normal peripheral pulses, normal rate Abdomen: normal bowel sounds, no mass Extremities: no cyanosis, no clubbing Microbiology Date/Time Source Procedure Growth Status 11/19/18 08:45 Sputum Gram Stain - Final Resulted 11/19/18 08:45 Sputum Sputum Culture Pending Resulted 11/17/18 22:50 Sputum Gram Stain - Final Complete 11/17/18 22:50 Sputum Culture - Final Mary Albicans Usual Upper Respiratory Debora Complete Laboratory Tests 11/19/18 20:50: Prothrombin Time 10.4, Prothromb Time International Ratio 1.0 11/20/18 06:30: Prothrombin Time 10.4, Prothromb Time International Ratio 1.0, White Blood Count 5.9, Red Blood Count 4.80, Hemoglobin 13.4, Hematocrit 39.1, Mean Corpuscular Volume 82, Mean Corpuscular Hemoglobin 27.9, Mean Corpuscular Hemoglobin Concent 34.2, Red Cell Distribution Width 11.8, Platelet Count 201, Mean Platelet Volume 6.5, Neutrophils (%) (Auto) 44.7L, Lymphocytes (%) (Auto) 36.6, Monocytes (%) (Auto) 9.3, Eosinophils (%) (Auto) 7.6H, Basophils (%) (Auto ) 1.8, Sodium Level 138, Potassium Level 4.2, Chloride Level 106, Carbon Dioxide Level 25, Anion Gap 7, Blood Urea Nitrogen 28H, Creatinine 1.2, Estimat Glomerular Filtration Rate , Glucose Level 131H, Calcium Level 9.6 Current Medications Medications (Trade) Dose Ordered Sig/Harsh Route PRN Reason Start Time Stop Time Status Last Admin Dose Admin Acetaminophen (Tylenol) 650 mg Q4H PRN ORAL T>100.5 11/16/18 21:00 12/16/18 20:59 Albuterol/ Ipratropium (Albuterol/ Ipratropium) 3 ml Q4H PRN HHN Shortness of Breath 11/16/18 21:00 11/21/18 20:59 11/19/18 09:22 Allopurinol (Allopurinol) 300 mg DAILY ORAL 11/17/18 09:00 12/17/18 08:59 11/20/18 08:54 Dextrose (Dextrose 50%) 25 ml Q30M PRN IV Hypoglycemia 11/18/18 11:30 12/18/18 11:29 Dextrose (Dextrose 50%) 50 ml Q30M PRN IV Hypoglycemia 11/18/18 11:30 12/18/18 11:29 Heparin Sodium (Porcine) (Heparin 5000 units/ml) 5,000 units EVERY 12 HOURS SUBQ 11/16/18 22:00 12/16/18 21:59 11/20/18 08:59 Hydrochlorothiazide (Hydrodiuril) 25 mg DAILY ORAL 11/17/18 09:00 12/17/18 08:59 11/20/18 08:54 Insulin Aspart (NovoLOG) BEFORE MEALS AND HS SUBQ 11/18/18 11:30 12/18/18 11:29 11/20/18 11:45 Lisinopril (Zestril) 2.5 mg DAILY ORAL 11/19/18 20:00 12/19/18 19:59 11/20/18 08:54 Morphine Sulfate (Morphine Sulfate) 2 mg Q4H PRN IVP Severe Pain (Pain Scale 7-10) 11/16/18 21:00 11/23/18 20:59 Ondansetron HCl (Zofran) 4 mg Q6H PRN IVP Nausea & Vomiting 11/16/18 21:00 12/16/18 20:59 Polyethylene Glycol (Miralax) 17 gm DAILYPRN PRN ORAL Constipation 11/16/18 21:00 12/16/18 20:59 Promethazine HCl/ Codeine (Phenergan with Codeine) 5 ml Q4H PRN ORAL For Cough 11/17/18 12:15 12/17/18 12:14 Regadenoson (Lexiscan) 0.4 mg ONCE PRN IV STRESS TEST 11/18/18 22:15 11/20/18 22:14 11/19/18 10:23 Theophylline (John-Dur) 100 mg EVERY 12 HOURS ORAL 11/17/18 21:00 12/17/18 20:59 11/20/18 08:54 Warfarin Sodium (Coumadin per pharmacy) 1 ea DAILY PRN MISC Per rx protocol 11/19/18 20:00 12/19/18 19:59 Warfarin Sodium (Coumadin) 5 mg COUMADIN ORAL 11/20/18 17:00 11/20/18 18:00 Sussy Edwards MD Nov 20, 2018 14:53
--- NOTE | 2018-11-20 15:21 | NUR ---
NURSE NOTES: Spoke with Dr. Argueta. Pt is cleared from cardiac standpoint after taking coumadin dose of 5mg today. To be discharged with Coumadin 4mg for 5 days until appointment with Dr. Argueta next week. Dr. Reddy called and stated he will be coming in.
[2018-11-20 16:00] VITALS: BP 108/66
--- NOTE | 2018-11-20 16:00 | Discharge Summary ---
Discharge Summary Hospital Course Date of Admission Nov 16, 2018 at 20:56 Date of Discharge Admitting Diagnosis PNEUMONIA ALEXANDRIA Lo is a 73 year old female who was admitted on Nov 16, 2018 at 20:56 for Pneumonia Hospital Course Last 24 Hour Vital Signs Date Time Temp Pulse Resp B/P (MAP) Pulse Ox O2 Delivery O2 Flow Rate FiO2 11/20/18 12:00 80 11/20/18 11:54 98.1 85 21 119/68 (85) 98 11/20/18 09:00 Room Air 11/20/18 08:54 121/63 11/20/18 08:00 81 11/20/18 08:00 97.9 73 21 121/63 (82) 95 11/20/18 07:17 73 18 99 Room Air 21 11/20/18 04:00 98.6 92 18 125/79 (94) 99 11/20/18 04:00 84 11/20/18 00:00 98.6 92 18 125/79 (94) 99 11/19/18 21:03 112/85 11/19/18 21:00 Room Air 11/19/18 20:00 88 18 97 Room Air 21 11/19/18 20:00 98.4 91 16 112/85 (94) 97 11/19/18 20:00 93 11/19/18 16:00 93 11/19/18 16:00 98.3 90 18 112/84 (93) 98 Physical Exam General: No acute distress, awake and alert HEENT: NCAT, sclera anicteric, PERRL, EOMI. Neck: Supple, no significant jugular venous distention, Lungs: Good inspiratory effort, no accessory muscle use, clear to auscultation bilaterally, no Wheeze or Rales. Heart: Regular rate and rhythm, normal S1/S2, no murmur, + PPM @ LCW Abdomen: soft, nontender, nondistended. Normoactive bowel sounds, Morbid obesity. / Rectal: Refused and deferred. Extremities: No Cyanosis , clubbing or edema. Neuro: A&O x 3, Able to move all extremities Skin: warm, no rash Psych: Normal mood and affect Discharge Discharge Disposition Patient was discharged to home JoB # [id number] Alonso Reddy MD Nov 20, 2018 16:00
--- NOTE | 2018-11-20 16:51 | NUR ---
*-* INSURANCE *-* ALL AVAILABLE CLINICALS HAVE BEEN FAXED TO: LEENA APONTEM:LAURA Farnsworth; [phone] F: [phone] Addendum: 11/20/18 at 1653 by FREDI KUMAR CM AND DISCHARGE SUMMARY FAXED
[2018-11-20] MEDS ORDERED: Warfarin Sodium 5mg ORAL SCH (17:00)
--- NOTE | 2018-11-20 19:21 | NUR ---
HAND-OFF: Report given to Rupesh ALBERT. Patient stable.
--- NOTE | 2018-11-20 19:41 | NUR ---
Report was taken from Yvette ALBERT. Patient stable. Patient signed discharge release form and verbalized understanding of instructions to follow up with Dr Argueta and Dr Reddy next week. Patient was also given her prescription and understands usage of medications prescribed. Patient was safely wheeled down stairs to front main entrance, and family has picked her up. Patient verbalized that she is very grateful for the care received at this facility.
--- NOTE | 2018-11-20 21:15 | Discharge Summary ---
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 Shortly after initial evaluation, the patient was admitted to the hospital with possible pneumonia and hypoxemia. Throughout the hospital course, the patient was consulted with Dr. Ilene Ji from Cardiology Electrophysiology, Dr. Juvenal Argueta, Cardiology, Dr. Arellano from Infection, Dr. Edwards, Pulmonary, Critical Care. The patient is started on broad-spectrum antibiotics with Rocephin and azithromycin and subsequently the patient was switched to Levaquin. The patient was able to tolerate five days of Levaquin p.o. and status gradually improved and subsequently was discharged home to be followed up as outpatient in my office within one week as well as Dr. Juvenal Argueta within 1 to 2 weeks. FINAL DIAGNOSES: 1. Cough, most likely secondary to bronchitis. 2. Ischemic cardiomyopathy with decreased ejection fraction. 3. Acute on chronic congestive heart failure with systolic dysfunction with a reduced ejection fraction. 4. Status post pacemaker. 5. Increased left ventricular apical . 6. Diabetes type 2. 7. Morbid obesity. 8. Gout. MEDICATIONS ON DISCHARGE: Continue discharge medication list. ACTIVITY: As tolerated. DIET: Would be 1800-ADA cardiac diet. The patient was advised to follow up in my office within one week. The patient presently discharged on Coumadin 5 mg to be followed in my office for INR within one week. Code Status is Full Code. Alonso Reddy M.D. DR: DUANE JOB#: [id number] CC:
== END 2018-11-20 19:35 | disposition home or self-care (01) | DRG 202 ==
LOC: EMR 19:00 → CMPBEDREQ 19:11 → 2E 20:56 → EDBEDREQ 21:26 → 2E 11-19 03:47
DX: J20.9 Acute bronchitis, unspecified (principal); I50.23 Acute on chronic systolic (congestive) heart failure; N17.9 Acute kidney failure, unspecified; E11.9 Type 2 diabetes mellitus without complications; I11.0 Hypertensive heart disease with heart failure; I50.9 Heart failure, unspecified; Z95.0 Presence of cardiac pacemaker; M10.9 Gout, unspecified; R09.02 Hypoxemia; E66.9 Obesity, unspecified; I44.1 Atrioventricular block, second degree; I25.5 Ischemic cardiomyopathy; E66.01 Morbid (severe) obesity due to excess calories; I48.91 Unspecified atrial fibrillation; I36.1 Nonrheumatic tricuspid (valve) insufficiency; I27.20 Pulmonary hypertension, unspecified; K63.5 Polyp of colon
CPT/HCPCS: 36415; 71045; 78452; 80048; 80053; 80069; 82550; 82553; 82962; 83605; 83880; 84484; 85025; 85610; 85730; 87040; 87070; 87181; 87205; 93005; 93017; 93306; 94640; 94664; 96365; 96366; 99285; J1815; J2785; J7620

== ENCOUNTER 2019-12-18 17:30 | Emergency (ER) | payer MEDICARE ==
[~2019-12-18] VITALS: Ht 154.9 cm; Wt 83.9 kg
[~2019-12-18 17:30] MED LIST changes: +ASPIR 8181 MG ORAL; +VITAMIN D400 UNI2 PO
[2019-12-18] MEDS ORDERED: Ketorolac 30mg Inj IM ONE (18:00)
[2019-12-18 18:18] VITALS: BP 133/75
--- NOTE | 2019-12-18 18:19 | NUR ---
ED Nurse Note:pt. c/i right foot and left knee pain from gout, pain meds given
--- NOTE | 2019-12-18 18:42 | Emergency Room Report ---
History of Present Illness General Chief Complaint: Pain Present Illness HPI 74-year-old female with history of gout, arthritis, hypertension, diabetes, fluid overload currently on Lasix, hydrochlorothiazide, allopurinol, Metformin here complaining of a gout attack right foot and left knee pain x2 days. Reports that the right foot pain started after she had shrimp and red meats. Reports that she also forgot to take her allopurinol for 2 days. Denies any fall or injury. Reports that she has been ambulating with a cane and feels like pressure in the left knee. Has full range of motion of the knee denies any tingling numbness. Denies any tingling or numbness. Denies taking any blood thinners. 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 COVID-19 Screening: Negative COVID-19 COVID-19 Testing Source: drive thru Patient History Past Medical History: see triage record Past Surgical History: none Pertinent Family History: none Now: No Immunizations: UTD Reviewed Nursing Documentation: PMH: Agreed; PSxH: Agreed Nursing Documentation-PMH Hx Cardiac Problems: Yes - gout Hx Hypertension: Yes Hx Pacemaker: Yes Hx Asthma: No Hx COPD: No Hx Diabetes: Yes Hx Cancer: No Hx Gastrointestinal Problems: Yes - lithotripsy 01/26, 02/21/2017 at [facility] Hx Dialysis: No Hx Neurological Problems: No Hx Cerebrovascular Accident: No Hx Parkinson's Disease: No Hx Seizures: No Review of Systems All Other Systems: negative except mentioned in HPI Physical Exam Vital Signs Date Time Temp Pulse Resp B/P (MAP) Pulse Ox O2 Delivery O2 Flow Rate FiO2 12/18/19 17:33 98.4 81 17 133/75 (94) 98 Room Air Sp02 EP Interpretation: reviewed, normal General Appearance: no apparent distress, alert, GCS 15, non-toxic Head: normocephalic, atraumatic Eyes: bilateral eye normal inspection, bilateral eye PERRL ENT: hearing grossly normal, normal pharynx, no angioedema, normal voice Neck: full range of motion, supple/symm/no masses Respiratory: chest non-tender, lungs clear, normal breath sounds, no rhonchi, no retraction, speaking full sentences Cardiovascular #1: regular rate, rhythm, no edema Cardiovascular #2: 2+ carotid (R), 2+ carotid (L), 2+ radial (R), 2+ radial (L), 2+ dorsalis pedis (R), 2+ dorsalis pedis (L) Gastrointestinal: normal bowel sounds, non tender, soft, non-distended, no guarding, no rebound Musculoskeletal: back normal, no calf tenderness, pelvis stable, Fredy's Sign negative, non-tender, swelling - Right foot Neurologic: alert, motor strength/tone normal, oriented x3, sensory intact, responsive, speech normal Psychiatric: judgement/insight normal, memory normal, mood/affect normal, no suicidal/homicidal ideation Skin: no rash Lymphatic: no adenopathy Medical Decision Making PA Attestation All diagnoses and treatment plans were reviewed and discussed with my supervising physician Dr. Neri Diagnostic Impression: Primary Impression: Acute gout Additional Impression: Arthritis of knee ER Course 74-year-old female with history of gout, arthritis, hypertension, diabetes, fluid overload currently on Lasix, hydrochlorothiazide, allopurinol, Metformin here complaining of a gout attack right foot and left knee pain x2 days. Reports that the right foot pain started after she had shrimp and red meats. Reports that she also forgot to take her allopurinol for 2 days. Denies any fall or injury. Reports that she has been ambulating with a cane and feels like pressure in the left knee. Has full range of motion of the knee denies any tingling numbness. Denies any tingling or numbness. Denies taking any blood thinners. No calf tenderness noted Ddx considered but are not limited to: Ankle fracture versus sprain versus strain versus gout, knee sprain, strain, fracture, contusion, meniscus tear i njury Patient is already aware of the bunion Vital signs: are WNL, pt. is afebrile H&PE are most consistent with: Acute gout, arthritis knee ORDERS: Knee x-ray, foot x-ray, indomethacin, Voltaren gel ER intervention: Toradol IM which patient reported relief after receiving a shot DISCHARGE: At this time pt. is stable for d/c to home. Will provide printed patient care instructions, and any necessary prescriptions. Care plan and follow up instructions have been discussed with the patient prior to discharge. Patient, patient to hold on allopurinol while taking indomethacin and resume taking allopurinol after, if worsening symptoms return to the emergency room also follow-up primary care provider. Other X-Ray Diagnostic Results Other X-Ray Diagnostic Results #1: X-Ray ordered: Left knee # of Views/Limited Vs Complete: 3 View Indication: Pain PA Xray: by supervising MD, and agrees with findings. Interpretation: no dislocation, no soft tissue swelling, no fractures Impression: No acute disease Electronically Signed by: Tristan KIRKPATRICK Scribe Text EXAM: XR Left Knee, 3 Views CLINICAL HISTORY: PAIN TECHNIQUE: Three views of the left knee. COMPARISON: No relevant prior studies available. FINDINGS: Bones/joints: Moderate osteoarthrosis of the medial compartment. No acute fracture. No dislocation. Soft tissues: Unremarkable. IMPRESSION: No acute findings. Moderate osteoarthrosis of the medial compartment. Other X-Ray Diagnostic Results #2: X-Ray ordered: Right foot # of Views/Limited Vs Complete: 3 View Indication: Pain EP Interpretation: Yes PA Xray: Interpretation reviewed, by supervising MD, and agrees with findings. Interpretation: no dislocation, no soft tissue swelling, no fractures Impression: No acute disease Electronically Signed by: Tristan KIRKPATRICK Scribe Text FINDINGS: Bones/joints: Hallux valgus deformity and bunion formation. Mild/moderate degenerative changes of the first metatarsophalangeal joint and sesamoid/first metatarsal head articulations. Mild degenerative changes also noted throughout the tarsus and tibiotalar joint. No acute fracture. No dislocation. Soft tissues: Diffuse soft tissue swelling, particularly within the dorsum of the foot. No radiopaque foreign body. IMPRESSION: Diffuse soft tissue swelling, particularly within the dorsum of the foot. No discrete fracture is visualized. Hallux valgus deformity and bunion formation with mild/moderate degenerative changes of the first metatarsophalangeal articulation. Last Vital Signs Date Time Temp Pulse Resp B/P (MAP) Pulse Ox O2 Delivery O2 Flow Rate FiO2 12/18/19 18:18 98.4 87 17 133/75 98 Room Air Disposition: HOME, SELF-CARE Condition: Stable Scripts Diclofenac Sodium (VOLTAREN) 100 Gm Gel..gram. 2 GM TP TID, #100 GM apply to artheritic Knee Prov: Tristan Paula 12/18/19 Indomethacin (INDOMETHACIN) 50 Mg Capsule 50 MG PO TID for 3 Days, #10 CAP Prov: Tristan Paula 12/18/19 Patient Instructions: Arthritis, Gout, [id number] Additional Instructions: Take medication as directed, follow with your primary care provider, avoid purine , worsening symptoms return to emergency room. Tristan Paula Dec 18, 2019 18:42
[2019-12-18] MEDS ORDERED: INDOMETHACIN50 MG PO (18:50)
[2019-12-18] MEDS ORDERED: VOLTAREN100 G1 TP (18:50)
--- NOTE | 2019-12-18 18:58 | Diagnostic Imaging Report ---
EXAM: XR Right Foot Complete, 3 or More Views CLINICAL HISTORY: PAIN TECHNIQUE: Frontal, lateral and oblique views of the right foot. COMPARISON: No relevant prior studies available. FINDINGS: Bones/joints: Hallux valgus deformity and bunion formation. Mild/moderate degenerative changes of the first metatarsophalangeal joint and sesamoid/first metatarsal head articulations. Mild degenerative changes also noted throughout the tarsus and tibiotalar joint. No acute fracture. No dislocation. Soft tissues: Diffuse soft tissue swelling, particularly within the dorsum of the foot. No radiopaque foreign body. IMPRESSION: Diffuse soft tissue swelling, particularly within the dorsum of the foot. No discrete fracture is visualized. Hallux valgus deformity and bunion formation with mild/moderate degenerative changes of the first metatarsophalangeal articulation.
--- NOTE | 2019-12-18 19:10 | NUR ---
ED Nurse Note: Pt cleared by health care Provider for discharge. DC instructions/prescription was given and explained to pt and verbalized understanding of teachings. All medical deviecs such as ID band removed. Pt is AAO x4, ambulatory and left with all personal belongings.
[2019-12-18 19:12] VITALS: BP 133/75
== END 2019-12-18 19:12 | disposition home or self-care (01) ==
LOC: EMR 18:00
DX: M10.9 Gout, unspecified (principal); M17.12 Unilateral primary osteoarthritis, left knee; I10 Essential (primary) hypertension; E11.9 Type 2 diabetes mellitus without complications; Z79.899 Other long term (current) drug therapy; Z95.0 Presence of cardiac pacemaker; M20.12 Hallux valgus (acquired), left foot
CPT/HCPCS: 73562; 73630; 96372; 99284; J1885

== ENCOUNTER 2020-03-26 17:55 | Emergency (ER) | payer MEDICARE ==
[~2020-03-26] VITALS: Ht 154.9 cm; Wt 81.6 kg
[~2020-03-26 17:55] MED LIST changes: +INDOMETHACIN50 MG PO; +VOLTAREN100 G1 TP
[2020-03-26 18:10] VITALS: BP 140/78
--- NOTE | 2020-03-26 18:11 | NUR ---
ED Nurse Note: pt stated she fell on her left knee back in Jan. didn't go to the dr thought she was alright. pt stated her knee just started hurting again radiating pain down her leg to her foot. c/o pain to the left heel of foot. hx of gout
[2020-03-26] MEDS ORDERED: Ketorolac 30mg Inj IM ONE (18:30)
[2020-03-26] MEDS ORDERED: INDOMETHACIN50 MG PO (18:36)
[2020-03-26] MEDS ORDERED: ROBAXIN-750750 MG PO (18:36)
--- NOTE | 2020-03-26 18:49 | NUR ---
ER DISCHARGE NOTE: Patient is cleared to be discharged per ERMD, pt is aox4, on room air, with stable vital signs. pt was given dc and prescription instructions, pt was able to verbalize understanding. pt is able to ambulate with steady with her cane. pt took all belongings.
--- NOTE | 2020-03-27 19:33 | Emergency Room Report ---
History of Present Illness General Chief Complaint: Pain Source: Patient Present Illness HPI 75-year-old male presenting with left leg pain. States that she has been having pain on and off for 1 month. Described as cramping, 6 out of 10, radiating from the thigh to the calf. States she is able to walk. No other aggravating relieving factors. 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 Patient History Past Medical History: DM, HTN Past Surgical History: pacemaker Social History: Denies: smoking, alcohol use, drug use Now: No Immunizations: UTD Reviewed Nursing Documentation: PMH: Agreed; PSxH: Agreed Nursing Documentation-PMH Past Medical History: No History, Except For Hx Cardiac Problems: Yes - gout Hx Hypertension: Yes Hx Pacemaker: Yes Hx Asthma: No Hx COPD: No Hx Diabetes: Yes Hx Cancer: No Hx Gastrointestinal Problems: Yes - lithotripsy 01/26, 02/21/2017 at [facility] Hx Dialysis: No Hx Neurological Problems: No Hx Cerebrovascular Accident: No Hx Parkinson's Disease: No Hx Seizures: No Review of Systems All Other Systems: negative except mentioned in HPI Physical Exam Vital Signs Date Time Temp Pulse Resp B/P (MAP) Pulse Ox O2 Delivery O2 Flow Rate FiO2 03/26/20 18:02 98.1 67 18 140/78 (98) 96 Room Air Sp02 EP Interpretation: reviewed, normal General Appearance: no apparent distress, alert, GCS 15, non-toxic Head: normocephalic, atraumatic Eyes: bilateral eye normal inspection, bilateral eye PERRL ENT: hearing grossly normal, normal pharynx, no angioedema, normal voice Neck: full range of motion, supple/symm/no masses Respiratory: chest non-tender, lungs clear, normal breath sounds, speaking full sentences Cardiovascular #1: regular rate, rhythm, no edema Cardiovascular #2: 2+ carotid (R), 2+ carotid (L), 2+ radial (R), 2+ radial (L), 2+ dorsalis pedis (R), 2+ dorsalis pedis (L) Gastrointestinal: normal bowel sounds, non tender, soft, non-distended, no guarding, no rebound Rectal: deferred Genitourinary: normal inspection, no CVA tenderness Musculoskeletal: back normal, normal range of motion, gait/station normal, tender - Palpable tenderness to the quadricep left thigh and to the calf muscle. No bruising or crepitus. No bony tenderness no swelling Neurologic: alert, motor strength/tone normal, oriented x3, sensory intact, responsive, speech normal Psychiatric: judgement/insight normal, memory normal, mood/affect normal, no suicidal/homicidal ideation Reflexes: 3+ bicep (R), 3+ bicep (L), 3+ tricep (R), 3+ tricep (L), 3+ knee (R), 3+ knee (L) Skin: no rash Lymphatic: no adenopathy Medical Decision Making Diagnostic Impression: Primary Impression: Muscle spasm Additional Impression: Gout Qualified Codes: M10.9 - Gout, unspecified ER Course Hospital Course 75-year-old female presents with left leg pain. No trauma Differential diagnoses include: Fracture, dislocation, sprain, contusion, bursitis Clinical course Patient placed on stretcher. After initial history, physical exam reveals an elderly female in no acute distress. There is palpable tenderness to the q uadricep muscle on left leg and to the calf muscle left leg. No swelling. No bony tenderness. Discussed findings with patient. Appears more muscular. Patient does document history of muscle spasms. Given Toradol in ED. Will discharge home. Safe for discharge with close outpatient follow-up. States she has a PMD. I will provide Ortho referrals Diagnosis -muscle spasm, gout stable and discharged to home with prescription for indomethacin, Robaxin. Followup with PMDOrtho. Return to ED if symptoms recur or worsen Last Vital Signs Date Time Temp Pulse Resp B/P (MAP) Pulse Ox O2 Delivery O2 Flow Rate FiO2 03/26/20 18:10 98.1 18 140/78 96 Room Air 03/26/20 18:02 67 Status: improved Disposition: HOME, SELF-CARE Condition: Stable Scripts Methocarbamol* (ROBAXIN-750*) 750 Mg Tablet 750 MG PO TID, #21 TAB 0 Refills Prov: Gigi Meraz MD 03/26/20 Indomethacin (INDOMETHACIN) 50 Mg Capsule 50 MG PO TID for 3 Days, #10 CAP Prov: Gigi Meraz MD 03/26/20 Referrals: Alonso Reddy MD (PCP) [facility] Open 24 hour /7 days a week by Appointment Only [address] [address] Patient Instructions: Heat Therapy, [id number] Gigi Meraz MD Mar 27, 2020 19:33
== END 2020-03-26 18:52 | disposition home or self-care (01) ==
LOC: EMR 18:37
DX: M10.9 Gout, unspecified (principal); M62.838 Other muscle spasm; E11.9 Type 2 diabetes mellitus without complications; I10 Essential (primary) hypertension; Z95.0 Presence of cardiac pacemaker
CPT/HCPCS: 96372; 99283; J1885